=== PATIENT | male | born 1945 | race Caucasian/White ===

== ENCOUNTER 2016-09-20 13:20 | Outpatient (RCR) | payer MEDICARE ==
--- OUTSIDE RECORDS SUMMARY | 2016-09-03 15:03 | XMS REPORT | Continuity of Care Document ---
Author Author [facility] Organization [facility] Address Unknown Phone Unavailable Care Team Providers Care Asphalt Patcher Name Role Phone Self, Referral PCP Unavailable Source Comments Some departments are not documenting in the electronic medical record. If you do not see the information that you expected, contact Release of Information in the Health Information Management department at [phone] for further assistance in locating additional records.[facility] Active Allergies and Adverse Reactions Not on File Current Medications Not on file Active Problems Not on file Social History Tobacco Use Types Packs/Day Years Used Date Never Assessed Plan of Care Health Maintenance Due Date Last Done Comments Hepatitis C Screening 1945 Physical (Comprehensive) 1953 Exam Pertussis Vaccine 1957 Tetanus Vaccine 1963 Colorectal Cancer 1996 Screening Shingles Vaccine 2006 Prevnar/Pneumovax (#1) 2011 Influenza Vaccine 07/08/2016 Results from Last 3 Months Not on file
[~2016-09-20 13:20] MED LIST: ALPR0.5T7 PO; ALPR0.5T72 PO; AMIT50TA3 PO; ATOR10TA66 PO; BPR75T PO; CHOL100061 PO; CHOL400T43 GT; CYAN10007 PO; DILT120C PO; DILT90TA PO; DLT90CCR PO; FINA5TAB6 PO; GABA-488 PO; GBPN300C PO; GLIM4TAB PO; HCT25T PO; HYDR-2890 PO; HYDR-34 PO; HYDR-3720 PO; INSU100C7 SQ; INSU100I14 SQ; LEVO750T6 PO; LISI10TA2 PO; MAGN400T6 PO; OMEP20CA12 PO; OXYC-12 PO; SIMV40TA4 PO; SITA1TAB2 PO; VITA1CAP21 PO
[2016-09-20 14:36] LABS: BASOPHILS % (AUTO) 0 % (0-10); EOSINOPHILS # (AUTO) 0.3 10^3/uL (0.0-0.3); EOSINOPHILS % (AUTO) 3 % (0-10); LYMPHOCYTES # (AUTO) 2.4 X 10^3 (1.0-4.0); LYMPHOCYTES % (AUTO) 23 % (12-44); MEAN CORPUSCULAR HEMOGLOBIN 31 PG (25-34); MEAN CORPUSCULAR HGB CONC 34 G/DL (32-36); MEAN CORPUSCULAR VOLUME 92 FL (80-99); MEAN PLATELET VOLUME 10.4 FL (7.4-10.4); MONOCYTES % (AUTO) 9 % (0-12); NEUTROPHILS # (AUTO) 7.1 X 10^3 (1.8-7.8); NEUTROPHILS % (AUTO) 66 % (42-75); PLATELET COUNT 241 10^3/uL (130-400); RED BLOOD COUNT 4.03 10^6/uL (4.35-5.85); RED CELL DISTRIBUTION WIDTH 15.2 % (10.0-14.5); WHITE BLOOD COUNT 10.9 10^3/uL (4.3-11.0)
[2016-09-20 14:52] LABS: ALBUMIN 4.1 G/DL (3.2-4.5); BILIRUBIN,TOTAL 0.6 MG/DL (0.1-1.0); CREATININE SERUM 1.52 MG/DL (0.60-1.30); POTASSIUM 3.9 MMOL/L (3.6-5.0); TOTAL PROTEIN 6.2 G/DL (6.4-8.2)
== END 2016-12-02 | disposition home or self-care (01) ==
LOC: ONC 13:20
PROVIDERS: ATTEND Internal Medicine Hematology & Oncology
DX: C85.11 Unspecified B-cell lymphoma, lymph nodes of head, face, and neck (principal); D64.81 Anemia due to antineoplastic chemotherapy; D63.1 Anemia in chronic kidney disease; N18.9 Chronic kidney disease, unspecified; I12.9 Hypertensive chronic kidney disease with stage 1 through stage 4 chronic kidney disease, or unspecified chronic kidney disease; E11.22 Type 2 diabetes mellitus with diabetic chronic kidney disease; E78.5 Hyperlipidemia, unspecified; F41.9 Anxiety disorder, unspecified; G62.0 Drug-induced polyneuropathy; T45.1X5A Adverse effect of antineoplastic and immunosuppressive drugs, initial encounter; Z45.2 Encounter for adjustment and management of vascular access device
CPT/HCPCS: 36591; 80053; 83615; 85025; 96523; 99213

== ENCOUNTER 2017-01-18 13:11 | Outpatient (RCR) | payer MEDICARE ==
--- OUTSIDE RECORDS SUMMARY | 2016-12-06 14:17 | XMS REPORT | Continuity of Care Document ---
Author Author [facility] Organization [facility] Address Unknown Phone Unavailable Care Team Providers Care Light Cleaner Name Role Phone Self, Referral PCP Unavailable Source Comments Some departments are not documenting in the electronic medical record. If you do not see the information that you expected, contact Release of Information in the Health Information Management department at [phone] for further assistance in locating additional records.[facility] Active Allergies and Adverse Reactions Not [...]
[2016-12-06 14:36] LABS: BASOPHILS % (AUTO) 0 % (0-10); EOSINOPHILS # (AUTO) 0.2 10^3/uL (0.0-0.3); EOSINOPHILS % (AUTO) 2 % (0-10); LYMPHOCYTES % (AUTO) 20 % (12-44); MEAN CORPUSCULAR HEMOGLOBIN 31 PG (25-34); MEAN CORPUSCULAR HGB CONC 34 G/DL (32-36); MEAN CORPUSCULAR VOLUME 92 FL (80-99); MEAN PLATELET VOLUME 9.8 FL (7.4-10.4); MONOCYTES # (AUTO) 1.1 X 10^3 (0.0-1.0); MONOCYTES % (AUTO) 11 % (0-12); NEUTROPHILS # (AUTO) 6.8 X 10^3 (1.8-7.8); NEUTROPHILS % (AUTO) 67 % (42-75); PLATELET COUNT 268 10^3/uL (130-400); RED BLOOD COUNT 3.77 10^6/uL (4.35-5.85)
[2016-12-06 15:18] LABS: ALBUMIN 3.9 G/DL (3.2-4.5); BILIRUBIN,TOTAL 0.7 MG/DL (0.1-1.0); CALCIUM 8.5 MG/DL (8.5-10.1); CREATININE SERUM 1.52 MG/DL (0.60-1.30); POTASSIUM 3.8 MMOL/L (3.6-5.0)
== END 2017-03-06 | disposition home or self-care (01) ==
LOC: ONC 13:11
PROVIDERS: ATTEND Internal Medicine Hematology & Oncology
DX: C85.11 Unspecified B-cell lymphoma, lymph nodes of head, face, and neck (principal); D64.81 Anemia due to antineoplastic chemotherapy; D63.1 Anemia in chronic kidney disease; N18.9 Chronic kidney disease, unspecified; I12.9 Hypertensive chronic kidney disease with stage 1 through stage 4 chronic kidney disease, or unspecified chronic kidney disease; E11.22 Type 2 diabetes mellitus with diabetic chronic kidney disease; E78.5 Hyperlipidemia, unspecified; F41.9 Anxiety disorder, unspecified; G62.0 Drug-induced polyneuropathy; T45.1X5A Adverse effect of antineoplastic and immunosuppressive drugs, initial encounter; Z45.2 Encounter for adjustment and management of vascular access device
CPT/HCPCS: 36591; 80053; 85025; 96523; 99213

== ENCOUNTER → 2017-03-14 | Outpatient (CLI) | payer MEDICARE ==
--- NOTE | 2017-03-14 16:55 | Diagnostic Imaging Report ---
INDICATION: Lower respiratory infection. EXAM: PA and lateral chest. FINDINGS: Left subclavian central line tip projects over the SVC. Heart size and pulmonary vascularity are normal. The lungs are clear. There are no effusions or pneumothoraces. IMPRESSION: Negative chest. Dictated by: Dictated on workstation # [id number]
== END ==
LOC: RAD 16:03
PROVIDERS: ATTEND Internal Medicine
DX: J18.9 Pneumonia, unspecified organism (principal)
CPT/HCPCS: 71020

== ENCOUNTER 2017-05-19 14:24 | Outpatient (RCR) | payer MEDICARE ==
[2017-03-29 14:02] LABS: BASOPHILS % (AUTO) 1 % (0-10); EOSINOPHILS # (AUTO) 0.3 10^3/uL (0.0-0.3); EOSINOPHILS % (AUTO) 4 % (0-10); LYMPHOCYTES # (AUTO) 2.2 X 10^3 (1.0-4.0); LYMPHOCYTES % (AUTO) 25 % (12-44); MEAN CORPUSCULAR HEMOGLOBIN 31 PG (25-34); MEAN CORPUSCULAR HGB CONC 33 G/DL (32-36); MEAN CORPUSCULAR VOLUME 93 FL (80-99); MONOCYTES # (AUTO) 0.8 X 10^3 (0.0-1.0); MONOCYTES % (AUTO) 9 % (0-12); NEUTROPHILS # (AUTO) 5.4 X 10^3 (1.8-7.8); NEUTROPHILS % (AUTO) 61 % (42-75); PLATELET COUNT 230 10^3/uL (130-400); RED BLOOD COUNT 4.05 10^6/uL (4.35-5.85); RED CELL DISTRIBUTION WIDTH 15.9 % (10.0-14.5); WHITE BLOOD COUNT 8.9 10^3/uL (4.3-11.0)
[2017-03-29 15:14] LABS: ALBUMIN 3.8 G/DL (3.2-4.5); BILIRUBIN,TOTAL 0.8 MG/DL (0.1-1.0); CALCIUM 8.9 MG/DL (8.5-10.1); CREATININE SERUM 1.73 MG/DL (0.60-1.30); POTASSIUM 3.8 MMOL/L (3.6-5.0); TOTAL PROTEIN 6.2 G/DL (6.4-8.2)
== END 2017-06-27 | disposition home or self-care (01) ==
LOC: ONC 14:24
PROVIDERS: ATTEND Internal Medicine Hematology & Oncology
DX: C85.11 Unspecified B-cell lymphoma, lymph nodes of head, face, and neck (principal); D64.81 Anemia due to antineoplastic chemotherapy; D63.1 Anemia in chronic kidney disease; N18.9 Chronic kidney disease, unspecified; I12.9 Hypertensive chronic kidney disease with stage 1 through stage 4 chronic kidney disease, or unspecified chronic kidney disease; E11.22 Type 2 diabetes mellitus with diabetic chronic kidney disease; E78.5 Hyperlipidemia, unspecified; F41.9 Anxiety disorder, unspecified; G62.0 Drug-induced polyneuropathy; T45.1X5A Adverse effect of antineoplastic and immunosuppressive drugs, initial encounter
CPT/HCPCS: 36591; 80053; 85025; 96523; 99213

== ENCOUNTER 2017-06-29 13:58 | Outpatient (RCR) | payer MEDICARE ==
[2017-06-29 14:12] LABS: BASOPHILS % (AUTO) 1 % (0-10); EOSINOPHILS # (AUTO) 0.3 10^3/uL (0.0-0.3); EOSINOPHILS % (AUTO) 3 % (0-10); LYMPHOCYTES # (AUTO) 2.3 X 10^3 (1.0-4.0); LYMPHOCYTES % (AUTO) 27 % (12-44); MEAN CORPUSCULAR HEMOGLOBIN 33 PG (25-34); MEAN CORPUSCULAR HGB CONC 34 G/DL (32-36); MEAN CORPUSCULAR VOLUME 95 FL (80-99); MONOCYTES # (AUTO) 0.9 X 10^3 (0.0-1.0); MONOCYTES % (AUTO) 10 % (0-12); NEUTROPHILS % (AUTO) 59 % (42-75); PLATELET COUNT 267 10^3/uL (130-400); RED BLOOD COUNT 3.74 10^6/uL (4.35-5.85); RED CELL DISTRIBUTION WIDTH 14.8 % (10.0-14.5); WHITE BLOOD COUNT 8.5 10^3/uL (4.3-11.0)
[2017-06-29 14:42] LABS: ALBUMIN 3.9 GM/DL (3.2-4.5); BILIRUBIN,TOTAL 0.8 MG/DL (0.1-1.0); CALCIUM 8.6 MG/DL (8.5-10.1); CREATININE SERUM 1.77 MG/DL (0.60-1.30); POTASSIUM 3.9 MMOL/L (3.6-5.0); TOTAL PROTEIN 6.4 GM/DL (6.4-8.2)
== END 2017-08-06 | disposition home or self-care (01) ==
LOC: ONC 13:58
PROVIDERS: ATTEND Internal Medicine Hematology & Oncology
DX: C85.11 Unspecified B-cell lymphoma, lymph nodes of head, face, and neck (principal); D64.81 Anemia due to antineoplastic chemotherapy; D63.1 Anemia in chronic kidney disease; N18.9 Chronic kidney disease, unspecified; I12.9 Hypertensive chronic kidney disease with stage 1 through stage 4 chronic kidney disease, or unspecified chronic kidney disease; E11.22 Type 2 diabetes mellitus with diabetic chronic kidney disease; E78.5 Hyperlipidemia, unspecified; F41.9 Anxiety disorder, unspecified; G62.0 Drug-induced polyneuropathy; T45.1X5A Adverse effect of antineoplastic and immunosuppressive drugs, initial encounter
CPT/HCPCS: 36591; 80053; 83615; 85025

== ENCOUNTER 2017-10-24 09:13 | Outpatient (RCR) | payer MEDICARE ==
[2017-09-21 14:16] LABS: BASOPHILS % (AUTO) 0 % (0-10); EOSINOPHILS # (AUTO) 0.3 10^3/uL (0.0-0.3); EOSINOPHILS % (AUTO) 5 % (0-10); HEMATOCRIT 36 % (40-54); HEMOGLOBIN 12.6 G/DL (13.3-17.7); LYMPHOCYTES # (AUTO) 2.1 X 10^3 (1.0-4.0); LYMPHOCYTES % (AUTO) 28 % (12-44); MEAN CORPUSCULAR HEMOGLOBIN 33 PG (25-34); MEAN CORPUSCULAR HGB CONC 35 G/DL (32-36); MEAN CORPUSCULAR VOLUME 94 FL (80-99); MEAN PLATELET VOLUME 10.4 FL (7.4-10.4); MONOCYTES # (AUTO) 0.8 X 10^3 (0.0-1.0); MONOCYTES % (AUTO) 10 % (0-12); NEUTROPHILS # (AUTO) 4.3 X 10^3 (1.8-7.8); NEUTROPHILS % (AUTO) 57 % (42-75); PLATELET COUNT 217 10^3/uL (130-400); RED BLOOD COUNT 3.86 10^6/uL (4.35-5.85); WHITE BLOOD COUNT 7.5 10^3/uL (4.3-11.0)
[2017-09-21 14:38] LABS: ALBUMIN 3.9 GM/DL (3.2-4.5); BILIRUBIN,TOTAL 0.7 MG/DL (0.1-1.0); CALCIUM 8.7 MG/DL (8.5-10.1); CREATININE SERUM 1.64 MG/DL (0.60-1.30); POTASSIUM 3.5 MMOL/L (3.6-5.0); TOTAL PROTEIN 6.3 GM/DL (6.4-8.2)
[~2017-10-24 09:13] MED LIST changes: -CATHETER FLUSH 10 ML SYR IV PRN; +FLU TRIvalent (5 YOA+) 2017-18 (AFLURIA) 0.5 ML IM ONE; -REGADENOSON 0.4 MG/5 ML SYR (LEXISCAN) IV ONE
== END 2017-11-08 | disposition home or self-care (01) ==
LOC: ONC 09:13
PROVIDERS: ATTEND Internal Medicine Hematology & Oncology
DX: C85.11 Unspecified B-cell lymphoma, lymph nodes of head, face, and neck (principal); D64.81 Anemia due to antineoplastic chemotherapy; D63.1 Anemia in chronic kidney disease; N18.9 Chronic kidney disease, unspecified; I12.9 Hypertensive chronic kidney disease with stage 1 through stage 4 chronic kidney disease, or unspecified chronic kidney disease; E11.22 Type 2 diabetes mellitus with diabetic chronic kidney disease; E78.5 Hyperlipidemia, unspecified; F41.9 Anxiety disorder, unspecified; Z23 Encounter for immunization; G62.0 Drug-induced polyneuropathy; T45.1X5A Adverse effect of antineoplastic and immunosuppressive drugs, initial encounter; Z45.2 Encounter for adjustment and management of vascular access device
CPT/HCPCS: 36415; 36591; 80053; 83615; 85025; 90471; 96523

== ENCOUNTER → 2017-10-24 | Outpatient (CLI) | payer MEDICARE ==
[~2017-10-24] VITALS: Ht 182.9 cm; Wt 102.1 kg
[~2017-10-24] MED LIST changes: +CATHETER FLUSH 10 ML SYR IV PRN; +REGADENOSON 0.4 MG/5 ML SYR (LEXISCAN) IV ONE
[2017-10-24 07:56] VITALS: BP 188/113
[2017-10-24 08:11] VITALS: BP 189/113
[2017-10-24 08:13] VITALS: BP 190/116
--- NOTE | 2017-10-25 04:39 | STRESS TEST ---
DATE OF SERVICE: 10/24/2017 NUCLEAR MYOVIEW REPORT SUMMARY: The patient was injected with 10.63 mCi of technetium-99 Myoview and the resting images were obtained. Then, with peak stress level a 31.1 mCi of technetium-99 Myoview were injected. The resting and stress images were reviewed and compared in the short axis, horizontal long axis and vertical long axis views. Review of the images showed diaphragmatic attenuation with typical male pattern. No significant ischemia or infarction was noted. SSS is 2. SDS 0. TID value 1.06. On the gated images, the left ventricle appeared to be normal size with normal contractility. Calculated ejection fraction 54%. CONCLUSION: 1. Typical male pattern with diaphragmatic attenuation with no ischemia or infarction on SPECT images. 2. Normal left ventricular size with normal contractility. Calculated ejection fraction 54%. Job ID: [id number] DocumentID: [id number] Dictated Date: 10/24/2017 10:11:33 Senior Risk Analyst Date: 10/24/2017 15:07:35 Dictated By: MERLENE CHRISTIAN MD
== END ==
LOC: CARD 06:38
PROVIDERS: ATTEND Internal Medicine
DX: R53.83 Other fatigue (principal)
CPT/HCPCS: 78452; 93017

== ENCOUNTER → 2017-12-15 | Outpatient (CLI) | payer MEDICARE ==
[~2017-12-15] MED LIST changes: -FLU TRIvalent (5 YOA+) 2017-18 (AFLURIA) 0.5 ML IM ONE
--- NOTE | 2017-12-15 13:19 | Diagnostic Imaging Report ---
INDICATION: Chronic kidney disease. COMPARISON: None. FINDINGS: Right kidney measures 11.5 cm and the left 11 cm. Benign cysts are seen bilaterally. Largest on the right is 6.5 cm, the left 3 cm. There is no solid mass or hydronephrosis. IMPRESSION: Benign renal cysts. No hydronephrosis identified. Dictated by: Dictated on workstation # [id number]
== END ==
LOC: RAD 08:19
PROVIDERS: ATTEND Internal Medicine
DX: N18.3 Chronic kidney disease, stage 3 (moderate) (principal); N28.1 Cyst of kidney, acquired
CPT/HCPCS: 76770

== ENCOUNTER 2017-12-16 08:30 | Outpatient (RCR) | payer MEDICARE ==
[2017-12-17 14:27] LABS: BODY SURFACE AREA 2.25
[2017-12-17 14:28] LABS: CREATININE CRCL 1.78 MG/DL (0.60-1.30)
[2017-12-26] MEDS ORDERED: AMOX-358 PO (12:56)
== END 2018-03-15 | disposition home or self-care (01) ==
LOC: LAB 08:30
PROVIDERS: ATTEND Internal Medicine
DX: N18.3 Chronic kidney disease, stage 3 (moderate) (principal)
CPT/HCPCS: 36415; 82575; 84156

== ENCOUNTER 2017-12-26 10:55 | Emergency (ER) | payer MEDICARE ==
[~2017-12-26] VITALS: Ht 180.3 cm; Wt 101.6 kg
--- OUTSIDE RECORDS SUMMARY | 2017-12-26 11:01 | XMS REPORT | Clinical Summary ---
Author Author [facility] Organization [facility] Address Unknown Phone Unavailable Care Team Providers Care Pad Machine Offbearer Name Role Phone Self, Referral PCP Unavailable Source Comments Some departments are not documenting in the electronic medical record. If you do not see the information that you expected, contact Release of Information in the Health Information Management department at [phone] for further assistance in locating additional records.[facility] Allergies Not on File Current Medications Not on file Active Problems Not on file Social History Tobacco Use Types Packs/Day Years Used Date Never Assessed Sex Assigned at Date Recorded Not on file Last Filed Vital Signs Not on file Plan of Treatment Health Maintenance Due Date Last Done Comments HEPATITIS C SCREENING 1945 PHYSICAL (COMPREHENSIVE) 1952 EXAM PERTUSSIS VACCINE 1957 TETANUS VACCINE 1963 COLORECTAL CANCER 1996 SCREENING SHINGLES VACCINE 2006 PREVNAR/PNEUMOVAX (#1) 2011 INFLUENZA VACCINE 06/07/2017 Results Not on filefrom Last 3 Months
--- OUTSIDE RECORDS SUMMARY | 2017-12-26 11:01 | XMS REPORT | Continuity of Care Document ---
Author Author [employer] Organization [facility] Address Unknown Phone Unavailable Care Team Providers Care Supervisor Fertilizer Processing Name Role Phone [employer] Unavailable Unavailable Problems Medications Allergies, Adverse Reactions, Alerts Immunizations Results Vital Signs Encounters Location Location Details Encounter Type Encounter Number Reason For Visit Attending Provider ADM [place] [id number] AN[place] THAPA 07/20/2007 07/20/2007 Active [facility] Procedures Plan of Care Social History Assessment and Plan Family History Advance Directives Functional Status
--- OUTSIDE RECORDS SUMMARY | 2017-12-26 11:02 | XMS REPORT ---
Author Author ASYA BIRD Organization [employer] Address Unknown Phone Unavailable Care Team Providers Care Records Management Engineer Name Role Phone ASYA BIRD CP Unavailable Allergies No Known Allergies Problems Problem Type Condition ICD-9 Code Onset Dates Condition Status Assessment Dental examination V72.2 Active Medications No Known Medications Procedures Procedure Coding System Code Date INTRAORL-PERIAPICAL 1 FILM [id number] CPT-4 D0220 Jun 26, 2015 INTRAORL-PERIAPICAL EA ADD FILM CPT-4 D0230 Jun 26, 2015 LTD ORAL EVALUATION - PROBLEM FOCUS CPT-4 D0140 Jun 26, 2015 Results No Known Results Summary Purpose [employer] Submission
--- OUTSIDE RECORDS SUMMARY | 2017-12-26 11:02 | XMS REPORT ---
Author Author ASYA BIRD Organization [employer] Address Unknown Phone Unavailable Care Team Providers Care Bounty Trapper Name Role Phone ASYA BIRD CP Unavailable Allergies No Known Allergies Problems Problem Type Condition ICD-9 Code Onset Dates Condition Status Assessment Dental examination V72.2 Active Medications No Known Medications Procedures Procedure Coding System Code Date EXTRAC ERUPTED TOOTH/EXPOSED ROOT CPT-4 D7140 Jul 03, 2015 Results No Known Results Summary Purpose [employer] Submission
--- OUTSIDE RECORDS SUMMARY | 2017-12-26 11:05 | XMS REPORT | Continuity of Care Document ---
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 DIABETIC BUTCHER ALL ROUND 07/23/2016 SUZI LOMAS MD, Ot E78.5 HYPERLIPIDEMIA, UNSPECIFIED 07/23/2016 SUZI LOMAS MD, Ot F41.9 ANXIETY DISORDER, UNSPECIFIED 07/23/2016 SUZI LOMAS MD, Ot G62.0 DRUG-INDUCED POLYNEUROPATHY 07/23/2016 SUZI LOMAS MD, Ot I12.9 HYPERTENSIVE CHRONIC KIDNEY DISEASE W ST 07/23/2016 SUZI LOMAS MD, Ot N18.9 CHRONIC KIDNEY DISEASE, UNSPECIFIED 07/23/2016 SUZI LOMAS MD, Ot T45.1X5A ADVERSE EFFECT OF ANTINEOPLASTIC AND IMM 07/27/2016 SUZI LOMAS MD, Ot 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, LYMPH NODES OF A 07/27/2016 SUZI LOMAS MD, Ot D63.1 ANEMIA IN CHRONIC KIDNEY DISEASE 07/27/2016 SUZI LOMAS MD Ot D64.81 ANEMIA DUE TO ANTINEOPLASTIC CHEMOTHERAP 07/27/2016 SUZI LOMAS MD Ot E11.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 DIABETIC BUTCHER ALL ROUND 07/27/2016 SUZI LOMAS MD Ot E78.5 HYPERLIPIDEMIA, UNSPECIFIED 07/27/2016 SUZI LOMAS MD, Ot F41.9 ANXIETY DISORDER, UNSPECIFIED 07/27/2016 SUZI LOMAS MD Ot G62.0 DRUG-INDUCED POLYNEUROPATHY 07/27/2016 SUZI LOMAS MD Ot I12.9 HYPERTENSIVE CHRONIC KIDNEY DISEASE W ST 07/27/2016 SUZI LOMAS MD, Ot N18.9 CHRONIC KIDNEY DISEASE, UNSPECIFIED 07/27/2016 SUZI LOMAS MD, Ot T45.1X5A ADVERSE EFFECT OF ANTINEOPLASTIC AND IMM 07/29/2016 SUZI LOMAS MD, Ot C82.90 FOLLICULAR LYMPHOMA, UNSPECIFIED, UNSPEC 08/16/2016 SUZI LOMAS MD, Ot 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, LYMPH NODES OF A 08/16/2016 SUZI LOMAS MD, Ot D63.1 ANEMIA IN CHRONIC KIDNEY DISEASE 08/16/2016 SUZI LOMAS MD, Ot D64.81 ANEMIA DUE TO ANTINEOPLASTIC CHEMOTHERAP 08/16/2016 SUZI LOMAS MD Ot E11.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 DIABETIC BUTCHER ALL ROUND 08/16/2016 SUZI LOMAS MD, Ot E78.5 HYPERLIPIDEMIA, UNSPECIFIED 08/16/2016 SUZI LOMAS MD, Ot F41.9 ANXIETY DISORDER, UNSPECIFIED 08/16/2016 SUZI LOMAS MD, Ot G62.0 DRUG-INDUCED POLYNEUROPATHY 08/16/2016 SUZI LOMAS MD, Ot I12.9 HYPERTENSIVE CHRONIC KIDNEY DISEASE W ST 08/16/2016 SUZI LOMAS MD, Ot N18.9 CHRONIC KIDNEY DISEASE, UNSPECIFIED 08/16/2016 SUZI LOMAS MD, Ot T45.1X5A ADVERSE EFFECT OF ANTINEOPLASTIC AND IMM 09/06/2016 SUZI LOMAS MD, Ot 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, LYMPH NODES OF [facility] 09/06/2016 SUZI LOMAS MD, Ot D63.1 ANEMIA IN CHRONIC KIDNEY DISEASE 09/06/2016 SUZI LOMAS MD Ot D64.81 ANEMIA DUE TO ANTINEOPLASTIC CHEMOTHERAP 09/06/2016 SUZI LOMAS MD Ot E11.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 DIABETIC BUTCHER ALL ROUND 09/06/2016 SUZI LOMAS MD Ot E78.5 HYPERLIPIDEMIA, UNSPECIFIED 09/06/2016 SUZI LOMAS MD, Ot F41.9 ANXIETY DISORDER, UNSPECIFIED 09/06/2016 SUZI LOMAS MD Ot G62.0 DRUG-INDUCED POLYNEUROPATHY 09/06/2016 SUZI LOMAS MD, Ot I12.9 HYPERTENSIVE CHRONIC KIDNEY DISEASE W ST 09/06/2016 SUZI LOMAS MD, Ot N18.9 CHRONIC KIDNEY DISEASE, UNSPECIFIED 09/06/2016 SUZI LOMAS MD, Ot T45.1X5A ADVERSE EFFECT OF ANTINEOPLASTIC AND IMM 09/28/2016 SUZI LOMAS MD, Ot 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, LYMPH NODES OF [facility] 09/28/2016 SUZI LOMAS MD, Ot D63.1 ANEMIA IN CHRONIC KIDNEY DISEASE 09/28/2016 SUZI LOMAS MD, Ot D64.81 ANEMIA DUE TO ANTINEOPLASTIC CHEMOTHERAP 09/28/2016 SUIZ LOMAS MD, Ot E11.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 DIABETIC BUTCHER ALL ROUND 09/28/2016 SUZI LOMAS MD, Ot E78.5 HYPERLIPIDEMIA, UNSPECIFIED 09/28/2016 SUZI LOMAS MD, Ot F41.9 ANXIETY DISORDER, UNSPECIFIED 09/28/2016 SUZI LOMAS MD, Ot G62.0 DRUG-INDUCED POLYNEUROPATHY 09/28/2016 SUZI LOMAS MD, Ot I12.9 HYPERTENSIVE CHRONIC KIDNEY DISEASE W ST 09/28/2016 SUZI LOMAS MD, Ot N18.9 CHRONIC KIDNEY DISEASE, UNSPECIFIED 09/28/2016 SUZI LOMAS MD, Ot T45.1X5A ADVERSE EFFECT OF ANTINEOPLASTIC AND IMM 09/28/2016 SUZI LOMAS MD, Ot Z45.2 ENCOUNTER FOR ADJUSTMENT AND MANAGEMENT 11/15/2016 SUZI LOMAS MD, Ot 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, LYMPH NODES OF [facility] 11/15/2016 SUZI LOMAS MD, Ot D63.1 ANEMIA IN CHRONIC KIDNEY DISEASE 11/15/2016 SUZI LOMAS MD, Ot D64.81 ANEMIA DUE TO ANTINEOPLASTIC CHEMOTHERAP 11/15/2016 SUZI LOMAS MD, Ot E11.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 DIABETIC BUTCHER ALL ROUND 11/15/2016 SUZI LOMAS MD, Ot E78.5 HYPERLIPIDEMIA, UNSPECIFIED 11/15/2016 SUZI LOMAS MD, Ot F41.9 ANXIETY DISORDER, UNSPECIFIED 11/15/2016 SUZI LOMAS MD, Ot G62.0 DRUG-INDUCED POLYNEUROPATHY 11/15/2016 SUZI LOMAS MD, Ot I12.9 HYPERTENSIVE CHRONIC KIDNEY DISEASE W ST 11/15/2016 SUZI LOMAS MD, Ot N18.9 CHRONIC KIDNEY DISEASE, UNSPECIFIED 11/15/2016 SUZI LOMAS MD, Ot T45.1X5A ADVERSE EFFECT OF ANTINEOPLASTIC AND IMM 11/15/2016 SUZI LOMAS MD, Ot Z45.2 ENCOUNTER FOR ADJUSTMENT AND MANAGEMENT 2016 SUZI LOMAS MD, Ot 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, LYMPH NODES OF [facility] 2016 SUZI LOMAS MD, Ot D63.1 ANEMIA IN CHRONIC KIDNEY DISEASE 2016 SUZI LOMAS MD, Ot D64.81 ANEMIA DUE TO ANTINEOPLASTIC CHEMOTHERAP 2016 SUZI LOMAS MD, Ot E11.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 DIABETIC BUTCHER ALL ROUND 2016 SUZI LOMAS MD, Ot E78.5 HYPERLIPIDEMIA, UNSPECIFIED 2016 SUZI LOMAS MD, Ot F41.9 ANXIETY DISORDER, UNSPECIFIED 2016 SUZI LOMAS MD, Ot G62.0 DRUG-INDUCED POLYNEUROPATHY 2016 SUZI LOMAS MD, Ot I12.9 HYPERTENSIVE CHRONIC KIDNEY DISEASE W ST 2016 SUZI LOMAS MD, Ot N18.9 CHRONIC KIDNEY DISEASE, UNSPECIFIED 2016 SUZI LOMAS MD, Ot T45.1X5A ADVERSE EFFECT OF ANTINEOPLASTIC AND IMM 2016 SUZI LOMAS MD, Ot Z45.2 ENCOUNTER FOR ADJUSTMENT AND MANAGEMENT 12/03/2016 SUZI LOMAS MD, Ot 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, LYMPH NODES OF HEA 12/03/2016 SUZI LOMAS MD, Ot D63.1 ANEMIA IN CHRONIC KIDNEY DISEASE 12/03/2016 SUZI LOMAS MD, Ot D64.81 ANEMIA DUE TO ANTINEOPLASTIC CHEMOTHERAP 12/03/2016 SUZI LOMAS MD, Ot E11.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 DIABETIC BUTCHER ALL ROUND 12/03/2016 SUZI LOMAS MD, Ot E78.5 HYPERLIPIDEMIA, UNSPECIFIED 12/03/2016 SUZI LOMAS MD, Ot F41.9 ANXIETY DISORDER, UNSPECIFIED 12/03/2016 SUZI LOMAS MD, Ot G62.0 DRUG-INDUCED POLYNEUROPATHY 12/03/2016 SUZI LOMAS MD, Ot I12.9 HYPERTENSIVE CHRONIC KIDNEY DISEASE W ST 12/03/2016 SUZI LOMAS MD, Ot N18.9 CHRONIC KIDNEY DISEASE, UNSPECIFIED 12/03/2016 SUZI LOMAS MD, Ot T45.1X5A ADVERSE EFFECT OF ANTINEOPLASTIC AND IMM 12/03/2016 SUZI LOMAS MD, Ot Z45.2 ENCOUNTER FOR ADJUSTMENT AND MANAGEMENT 12/03/2016 SUZI LOMAS MD, Ot 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, LYMPH NODES OF HEA 12/03/2016 SUZI LOMAS MD, Ot D63.1 ANEMIA IN CHRONIC KIDNEY DISEASE 12/03/2016 SUZI LOMAS MD, Ot D64.81 ANEMIA DUE TO ANTINEOPLASTIC CHEMOTHERAP 12/03/2016 SUZI LOMAS MD, Ot E11.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 DIABETIC BUTCHER ALL ROUND 12/03/2016 SUZI LOMAS MD, Ot E78.5 HYPERLIPIDEMIA, UNSPECIFIED 12/03/2016 SUZI LOMAS MD, Ot F41.9 ANXIETY DISORDER, UNSPECIFIED 12/03/2016 SUZI LOMAS MD, Ot G62.0 DRUG-INDUCED POLYNEUROPATHY 12/03/2016 SUZI LOMAS MD, Ot I12.9 HYPERTENSIVE CHRONIC KIDNEY DISEASE W ST 12/03/2016 SUZI LOMAS MD, Ot N18.9 CHRONIC KIDNEY DISEASE, UNSPECIFIED 12/03/2016 SUZI LOMAS MD, Ot T45.1X5A ADVERSE EFFECT OF ANTINEOPLASTIC AND IMM 12/03/2016 SUZI LOMAS MD, Ot Z45.2 ENCOUNTER FOR ADJUSTMENT AND MANAGEMENT 12/07/2016 SUZI LOMAS MD, Ot 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, LYMPH NODES OF HEA 12/07/2016 SUZI LOMAS MD, Ot D63.1 ANEMIA IN CHRONIC KIDNEY DISEASE 12/07/2016 SUZI LOMAS MD, Ot D64.81 ANEMIA DUE TO ANTINEOPLASTIC CHEMOTHERAP 12/07/2016 SUZI LOMAS MD, Ot E11.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 DIABETIC BUTCHER ALL ROUND 12/07/2016 SUZI LOMAS MD, Ot E78.5 HYPERLIPIDEMIA, UNSPECIFIED 12/07/2016 SUZI LOMAS MD, Ot F41.9 ANXIETY DISORDER, UNSPECIFIED 12/07/2016 SUZI LOMAS MD, Ot G62.0 DRUG-INDUCED POLYNEUROPATHY 12/07/2016 SUZI LOMAS MD, Ot I12.9 HYPERTENSIVE CHRONIC KIDNEY DISEASE W ST 12/07/2016 SUZI LOMAS MD, Ot N18.9 CHRONIC KIDNEY DISEASE, UNSPECIFIED 12/07/2016 SUZI LOMAS MD, Ot T45.1X5A ADVERSE EFFECT OF ANTINEOPLASTIC AND IMM 12/07/2016 SUZI LOMAS MD, Ot Z45.2 ENCOUNTER FOR ADJUSTMENT AND MANAGEMENT 01/03/2017 SUZI LOMAS MD, Ot 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, LYMPH NODES OF [facility] 01/03/2017 SUZI LOMAS MD, Ot D63.1 ANEMIA IN CHRONIC KIDNEY DISEASE 01/03/2017 SUZI LOMAS MD, Ot D64.81 ANEMIA DUE TO ANTINEOPLASTIC CHEMOTHERAP 01/03/2017 SUZI LOMAS MD, Ot E11.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 DIABETIC BUTCHER ALL ROUND 01/03/2017 SUZI LOMAS MD, Ot E78.5 HYPERLIPIDEMIA, UNSPECIFIED 01/03/2017 SUZI LOMAS MD, Ot F41.9 ANXIETY DISORDER, UNSPECIFIED 01/03/2017 SUZI LOMAS MD, Ot G62.0 DRUG-INDUCED POLYNEUROPATHY 01/03/2017 SUZI LOMAS MD, Ot I12.9 HYPERTENSIVE CHRONIC KIDNEY DISEASE W ST 01/03/2017 SUZI LOMAS MD, Ot N18.9 CHRONIC KIDNEY DISEASE, UNSPECIFIED 01/03/2017 SUZI LOMAS MD, Ot T45.1X5A ADVERSE EFFECT OF ANTINEOPLASTIC AND IMM 01/24/2017 SUZI LOMAS MD, Ot 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, LYMPH NODES OF A 01/24/2017 SUZI LMOAS MD, Ot D63.1 ANEMIA IN CHRONIC KIDNEY DISEASE 01/24/2017 SUZI LOMAS MD, Ot D64.81 ANEMIA DUE TO ANTINEOPLASTIC CHEMOTHERAP 01/24/2017 SUZI LOMAS MD Ot E11.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 DIABETIC BUTCHER ALL ROUND 01/24/2017 SUZI LOMAS MD, Ot E78.5 HYPERLIPIDEMIA, UNSPECIFIED 01/24/2017 XUN MD, ARREGUIN-JOY Ot F41.9 ANXIETY DISORDER, UNSPECIFIED 01/24/2017 SUZI LOMAS MD, Ot G62.0 DRUG-INDUCED POLYNEUROPATHY 01/24/2017 SUZI LOMAS MD, Ot I12.9 HYPERTENSIVE CHRONIC KIDNEY DISEASE W ST 01/24/2017 SUZI LOMAS MD, Ot N18.9 CHRONIC KIDNEY DISEASE, UNSPECIFIED 01/24/2017 SUZI LOMAS MD, Ot T45.1X5A ADVERSE EFFECT OF ANTINEOPLASTIC AND IMM 03/06/2017 SZUI LOMAS MD, Ot 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, LYMPH NODES OF A 03/06/2017 SUZI LOMAS MD, Ot D63.1 ANEMIA IN CHRONIC KIDNEY DISEASE 03/06/2017 SUZI LOMAS MD, Ot D64.81 ANEMIA DUE TO ANTINEOPLASTIC CHEMOTHERAP 03/06/2017 SUZI LOMAS MD, Ot E11.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 DIABETIC BUTCHER ALL ROUND 03/06/2017 SUZI LOMAS MD, Ot E78.5 HYPERLIPIDEMIA, UNSPECIFIED 03/06/2017 SUZI LOMAS MD, Ot F41.9 ANXIETY DISORDER, UNSPECIFIED 03/06/2017 SUZI LOMAS MD, Ot G62.0 DRUG-INDUCED POLYNEUROPATHY 03/06/2017 SUZI LOMAS MD, Ot I12.9 HYPERTENSIVE CHRONIC KIDNEY DISEASE W ST 03/06/2017 SUZI LOMAS MD, Ot N18.9 CHRONIC KIDNEY DISEASE, UNSPECIFIED 03/06/2017 SUZI LOMAS MD, Ot T45.1X5A ADVERSE EFFECT OF ANTINEOPLASTIC AND IMM 03/06/2017 SUZI LOMAS MD, Ot Z45.2 ENCOUNTER FOR ADJUSTMENT AND MANAGEMENT 03/07/2017 SUZI LOMAS MD, Ot 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, LYMPH NODES OF A 03/07/2017 SUZI LOMAS MD, Ot D63.1 ANEMIA IN CHRONIC KIDNEY DISEASE 03/07/2017 SUZI LOMAS MD, Ot D64.81 ANEMIA DUE TO ANTINEOPLASTIC CHEMOTHERAP 03/07/2017 SUZI LOMAS MD, Ot E11.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 DIABETIC BUTCHER ALL ROUND 03/07/2017 SUZI LOMAS MD, Ot E78.5 HYPERLIPIDEMIA, UNSPECIFIED 03/07/2017 SUZI LOMAS MD, Ot F41.9 ANXIETY DISORDER, UNSPECIFIED 03/07/2017 SUZI LOMAS MD Ot G62.0 DRUG-INDUCED POLYNEUROPATHY 03/07/2017 SUZI LOMAS MD Ot I12.9 HYPERTENSIVE CHRONIC KIDNEY DISEASE W ST 03/07/2017 SUZI LOMAS MD Ot N18.9 CHRONIC KIDNEY DISEASE, UNSPECIFIED 03/07/2017 SUZI LOMAS MD Ot T45.1X5A ADVERSE EFFECT OF ANTINEOPLASTIC AND IMM 03/07/2017 SUZI LOMAS MD Ot Z45.2 ENCOUNTER FOR ADJUSTMENT AND MANAGEMENT 03/10/2017 Ot 202.80 OTH LYMPHOMAS EXTRANODAL SOLID ORGAN U 03/10/2017 Ot V58.81 FIT/ADJ VASCULAR CATHETER 03/11/2017 Ot 202.80 OTH LYMPHOMAS EXTRANODAL SOLID ORGAN U 03/11/2017 Ot 787.20 DYSPHAGIA, UNSPECIFIED 03/11/2017 Ot 791.0 PROTEINURIA 03/11/2017 OCTAVIA LIMON FACC, ALI FACP CCDS Ot 250.00 DIAB JIGNESH WO COMPL, TYPE II OR UNSPEC TY 03/11/2017 OCTAVIA LIMON FACC, ALI FACP CCDS Ot 272.4 HYPERLIPIDEMIA NEC/NOS 03/11/2017 OCTAVIA LIMON FACC, ALI FACP CCDS Ot 401.9 HYPERTENSION NOS 03/11/2017 OCTAVIA LIMON FACC, ALI FACP CCDS Ot 586 RENAL FAILURE NOS 03/11/2017 OCTAVIA LIMON FACC, ALI FACP CCDS Ot 780.4 DIZZINESS AND GIDDINESS 03/11/2017 OCTAVIA LIMON FACC, ALI FACP CCDS Ot 781.3 LACK OF COORDINATION 03/11/2017 OCTAVIA LIMON FACC, ALI FACP CCDS Ot 786.09 RESPIRATORY ABNORM NEC 03/11/2017 OCTAVIA LIMON FACC, ALI FACP CCDS Ot 272.4 HYPERLIPIDEMIA NEC/NOS 03/11/2017 OCTAVIA LIMON FACC, ALI FACP CCDS Ot 401.9 HYPERTENSION NOS 03/11/2017 OCTAVIA LIMON FACC, ALI FACP CCDS Ot 780.4 DIZZINESS AND GIDDINESS 03/11/2017 OCTAVIA LIMON FACC, ALI FACP CCDS Ot 786.09 RESPIRATORY ABNORM NEC 03/11/2017 OSKAR HANSEN DO Ot 574.20 CHOLELITHIASIS NOS 03/11/2017 OSKAR HANSEN DO Ot 585.4 CHRONIC KIDNEY DISEASE, STAGE IV (SEVERE 03/11/2017 OSKAR HANSEN DO Ot 593.2 CYST OF KIDNEY, ACQUIRED 03/11/2017 Ot 593.9 RENAL URETERAL DIS NOS 03/11/2017 ALFREDO MCLEAN MD Ot 202.80 OTH LYMPHOMAS EXTRANODAL SOLID ORGAN U 03/11/2017 ALFREDO MCLEAN MD Ot V58.69 OTH MED,LT,CURRENT USE 03/11/2017 ALFREDO MCLEAN MD Ot 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 03/11/2017 ALFREDO MCLEAN MD Ot 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 03/11/2017 ALFREDO MCLEAN MD Ot 496 CHR AIRWAY OBSTRUCT NEC 03/11/2017 ALFREDO MCLEAN MD Ot 530.81 ESOPHAGEAL REFLUX 03/11/2017 ALFREDO MCLEAN MD Ot 562.10 DIVERTICULOSIS COLON (W/O MENT OF HEMORR 03/11/2017 ALFREDO MCLEAN MD Ot 574.20 CHOLELITHIASIS NOS 03/11/2017 ALFREDO MCLEAN MD Ot V58.69 OTH MED,LT,CURRENT USE 03/11/2017 ALFREDO MCLEAN MD Ot V58.83 ENCOUNTER FOR THERAPEUTIC DRUG MONITORIN 03/11/2017 EDVIN LIMON, MAGY Ot V72.84 EXAM PRE-OPERATIVE NOS 03/11/2017 ABUNDIO BORJAS Ot 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 03/11/2017 ABUNDIO BORJAS [employer]PERVIS[employer] Ot 250.60 DIAB W NEURO MANIFEST, TYPE II OR UNSPEC 03/11/2017 ABUNDIO BORJAS [employer] Ot 272.4 HYPERLIPIDEMIA NEC/NOS 03/11/2017 ABUNDIO BORJAS [employer] Ot 357.2 NEUROPATHY IN DIABETES 03/11/2017 ABUNDIO BORJAS [employer]PER[employer] Ot 401.9 HYPERTENSION NOS 03/11/2017 ABUNDIO BORJAS Ot V58.69 OTH MED,LT,CURRENT USE 03/11/2017 ABUNDIO BORJAS [employer] Ot V87.41 PERSONAL HISTORY OF ANTINEOPLASTIC CHEMO 03/11/2017 ABEBE LIMON, SUZI Ot 202.80 OTH LYMPHOMAS EXTRANODAL SOLID ORGAN U 03/11/2017 OSKAR HANSEN DO Ot E11.9 TYPE 2 DIABETES MELLITUS WITHOUT COMPLIC 03/11/2017 OSKAR HANSEN DO Ot E11.9 TYPE 2 DIABETES MELLITUS WITHOUT COMPLIC 03/11/2017 OSKAR HANSEN DO, Ot Z00.00 ENCNTR FOR GENERAL ADULT MEDICAL EXAM W/ 03/11/2017 Ot 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 03/11/2017 Ot 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 OR AB 03/11/2017 Ot K80.20 CALCULUS OF GALLBLADDER W/O CHOLECYSTITI 03/11/2017 SUZI LOMAS MD Ot R05 COUGH 03/11/2017 SUZI LOMAS MD, Ot R06.09 OTHER FORMS OF DYSPNEA 03/11/2017 OSKAR HANSEN DO, Ot E86.0 DEHYDRATION 03/11/2017 OSKAR HANSEN DO Ot I95.9 HYPOTENSION, UNSPECIFIED 03/11/2017 SUZI LOMAS MD, Ot C82.90 FOLLICULAR LYMPHOMA, UNSPECIFIED, UNSPEC 03/11/2017 SUZI LOMAS MD, Ot 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, LYMPH NODES OF [facility] 03/11/2017 SUZI LOMAS MD, Ot D63.1 ANEMIA IN CHRONIC KIDNEY DISEASE 03/11/2017 SUZI LOMAS MD, Ot D64.81 ANEMIA DUE TO ANTINEOPLASTIC CHEMOTHERAP 03/11/2017 SUZI LOMAS MD, Ot E11.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 DIABETIC BUTCHER ALL ROUND 03/11/2017 SUZI LOMAS MD, Ot E78.5 HYPERLIPIDEMIA, UNSPECIFIED 03/11/2017 SUZI LOMAS MD, Ot F41.9 ANXIETY DISORDER, UNSPECIFIED 03/11/2017 SUZI LOMAS MD, Ot G62.0 DRUG-INDUCED POLYNEUROPATHY 03/11/2017 SUZI LOMAS MD, Ot I12.9 HYPERTENSIVE CHRONIC KIDNEY DISEASE W ST 03/11/2017 SUZI LOMAS MD, Ot N18.9 CHRONIC KIDNEY DISEASE, UNSPECIFIED 03/11/2017 SUZI LOMAS MD, Ot T45.1X5A ADVERSE EFFECT OF ANTINEOPLASTIC AND IMM 03/12/2017 SUZI LOMAS MD, Ot 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, LYMPH NODES OF [facility] 03/12/2017 SUZI LOMAS MD, Ot D63.1 ANEMIA IN CHRONIC KIDNEY DISEASE 03/12/2017 SUZI LOMAS MD, Ot D64.81 ANEMIA DUE TO ANTINEOPLASTIC CHEMOTHERAP 03/12/2017 SUZI LOMAS MD Ot E11.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 DIABETIC BUTCHER ALL ROUND 03/12/2017 SUZI LOMAS MD Ot E78.5 HYPERLIPIDEMIA, UNSPECIFIED 03/12/2017 SUZI LOMAS MD, Ot F41.9 ANXIETY DISORDER, UNSPECIFIED 03/12/2017 SUZI LOMAS MD Ot G62.0 DRUG-INDUCED POLYNEUROPATHY 03/12/2017 SUZI LOMAS MD, Ot I12.9 HYPERTENSIVE CHRONIC KIDNEY DISEASE W ST 03/12/2017 SUZI LOMAS MD, Ot N18.9 CHRONIC KIDNEY DISEASE, UNSPECIFIED 03/12/2017 SUZI LOMAS MD, Ot T45.1X5A ADVERSE EFFECT OF ANTINEOPLASTIC AND IMM 03/12/2017 SUZI LOMAS MD Ot Z45.2 ENCOUNTER FOR ADJUSTMENT AND MANAGEMENT 03/14/2017 Ot 202.80 OTH LYMPHOMAS EXTRANODAL SOLID ORGAN U 03/14/2017 Ot 787.20 DYSPHAGIA, UNSPECIFIED 03/14/2017 Ot 791.0 PROTEINURIA 03/14/2017 OCTAVIA LIMON FACC, JAMAAL FACP CCDS Ot 250.00 DIAB JIGNESH WO COMPL, TYPE II OR UNSPEC TY 03/14/2017 OCTAVIA LIMON FACC, ALI FACP CCDS Ot 272.4 HYPERLIPIDEMIA NEC/NOS 03/14/2017 OCTAVIA LIMON FACC, ALI FACP CCDS Ot 401.9 HYPERTENSION NOS 03/14/2017 OCTAVIA LIMON FACC, ALI FACP CCDS Ot 586 RENAL FAILURE NOS 03/14/2017 OCTAVIA LIMON FACC, ALI FACP CCDS Ot 780.4 DIZZINESS AND GIDDINESS 03/14/2017 OCTAVIA LIMON FACC, ALI FACP CCDS Ot 781.3 LACK OF COORDINATION 03/14/2017 OCTAVIA LIMON FACC, ALI FACP CCDS Ot 786.09 RESPIRATORY ABNORM NEC 03/14/2017 OCTAVIA LIMNO FACC, ALI FACP CCDS Ot 272.4 HYPERLIPIDEMIA NEC/NOS 03/14/2017 OCTAVIA LIMON FACC, ALI FACP CCDS Ot 401.9 HYPERTENSION NOS 03/14/2017 OCTAVIA LIMON FACC, ALI FACP CCDS Ot 780.4 DIZZINESS AND GIDDINESS 03/14/2017 OCTAVIA LIMON FACC, ALI FACP CCDS Ot 786.09 RESPIRATORY ABNORM NEC 03/14/2017 OSKAR HANSEN DO Ot 574.20 CHOLELITHIASIS NOS 03/14/2017 OSKAR HANSEN DO Ot 585.4 CHRONIC KIDNEY DISEASE, STAGE IV (SEVERE 03/14/2017 OSKAR HANSEN DO Ot 593.2 CYST OF KIDNEY, ACQUIRED 03/14/2017 Ot 593.9 RENAL URETERAL DIS NOS 03/14/2017 VINYA LIMON, ALFREDO Holliday Ot 202.80 OTH LYMPHOMAS EXTRANODAL SOLID ORGAN U 03/14/2017 ALFREDO MCLEAN MD Ot V58.69 OTH MED,LT,CURRENT USE 03/14/2017 ALFREDO MCLEAN MD Ot 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 03/14/2017 ALFREDO MCLEAN MD Ot 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 03/14/2017 ALFREDO MCLEAN MD Ot 496 CHR AIRWAY OBSTRUCT NEC 03/14/2017 ALFREDO MCLEAN MD Ot 530.81 ESOPHAGEAL REFLUX 03/14/2017 ALFREDO MCLEAN MD Ot 562.10 DIVERTICULOSIS COLON (W/O MENT OF HEMORR 03/14/2017 ALFREDO MCLEAN MD Ot 574.20 CHOLELITHIASIS NOS 03/14/2017 ALFREDO MCLEAN MD Ot V58.69 OTH MED,LT,CURRENT USE 03/14/2017 ALFREDO CMLEAN MD Ot V58.83 ENCOUNTER FOR THERAPEUTIC DRUG MONITORIN 03/14/2017 EDVIN LIMON, MAGY Ot V72.84 EXAM PRE-OPERATIVE NOS 03/14/2017 ABUNDIO BORJAS Ot 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 03/14/2017 ABUNDIO BORJAS [employer] Ot 250.60 DIAB W NEURO MANIFEST, TYPE II OR UNSPEC 03/14/2017 ABUNDIO BORJAS [employer] Ot 272.4 HYPERLIPIDEMIA NEC/NOS 03/14/2017 ABUNDIO BORJAS [employer] Ot 357.2 NEUROPATHY IN DIABETES 03/14/2017 ABUNDIO BORJAS [employer] Ot 401.9 HYPERTENSION NOS 03/14/2017 ABUNDIO BORJAS Ot V58.69 OTH MED,LT,CURRENT USE 03/14/2017 ABUNDIO BORJAS [employer] Ot V87.41 PERSONAL HISTORY OF ANTINEOPLASTIC CHEMO 03/14/2017 SUZI LOMAS MD, Ot 202.80 OTH LYMPHOMAS EXTRANODAL SOLID ORGAN U 03/14/2017 OSKAR HANSEN DO, Ot E11.9 TYPE 2 DIABETES MELLITUS WITHOUT COMPLIC 03/14/2017 OSKAR HANSEN DO, Ot E11.9 TYPE 2 DIABETES MELLITUS WITHOUT COMPLIC 03/14/2017 OSKAR HANSEN DO, Ot Z00.00 ENCNTR FOR GENERAL ADULT MEDICAL EXAM W/ 03/14/2017 Ot 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 03/14/2017 Ot 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 OR AB 03/14/2017 Ot K80.20 CALCULUS OF GALLBLADDER W/O CHOLECYSTITI 03/14/2017 SUZI LOMAS MD, Ot R05 COUGH 03/14/2017 SUZI LOMAS MD, Ot R06.09 OTHER FORMS OF DYSPNEA 03/14/2017 OSKAR HANSEN DO Ot E86.0 DEHYDRATION 03/14/2017 OSKAR HANSEN DO Ot I95.9 HYPOTENSION, UNSPECIFIED 03/14/2017 SUZI LOMAS MD, Ot C82.90 FOLLICULAR LYMPHOMA, UNSPECIFIED, UNSPEC 03/14/2017 SUZI LOMAS MD, Ot 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, LYMPH NODES OF HEA 03/14/2017 SUZI LOMAS MD, Ot D63.1 ANEMIA IN CHRONIC KIDNEY DISEASE 03/14/2017 SUZI LOMAS MD, Ot D64.81 ANEMIA DUE TO ANTINEOPLASTIC CHEMOTHERAP 03/14/2017 SUZI LOMAS MD, Ot E11.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 DIABETIC BUTCHER ALL ROUND 03/14/2017 SUZI LOMAS MD, Ot E78.5 HYPERLIPIDEMIA, UNSPECIFIED 03/14/2017 SUZI LOMAS MD, Ot F41.9 ANXIETY DISORDER, UNSPECIFIED 03/14/2017 SUZI LOMAS MD, Ot G62.0 DRUG-INDUCED POLYNEUROPATHY 03/14/2017 SUZI LOMAS MD, Ot I12.9 HYPERTENSIVE CHRONIC KIDNEY DISEASE W ST 03/14/2017 SUZI LOMAS MD, Ot N18.9 CHRONIC KIDNEY DISEASE, UNSPECIFIED 03/14/2017 SUZI LOMAS MD, Ot T45.1X5A ADVERSE EFFECT OF ANTINEOPLASTIC AND IMM 03/30/2017 XUN MD, ARREGUIN-JOY Ot 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, LYMPH NODES OF [facility] 03/30/2017 SUZI LOMAS MD, Ot D63.1 ANEMIA IN CHRONIC KIDNEY DISEASE 03/30/2017 SUZI LOMAS MD, Ot D64.81 ANEMIA DUE TO ANTINEOPLASTIC CHEMOTHERAP 03/30/2017 SUZI LOMAS MD Ot E11.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 DIABETIC BUTCHER ALL ROUND 03/30/2017 SUZI LOMAS MD, Ot E78.5 HYPERLIPIDEMIA, UNSPECIFIED 03/30/2017 SUZI LOMAS MD, Ot F41.9 ANXIETY DISORDER, UNSPECIFIED 03/30/2017 SUZI LOMAS MD, Ot G62.0 DRUG-INDUCED POLYNEUROPATHY 03/30/2017 SUZI LOMAS MD, Ot I12.9 HYPERTENSIVE CHRONIC KIDNEY DISEASE W ST 03/30/2017 SUZI LOMAS MD, Ot N18.9 CHRONIC KIDNEY DISEASE, UNSPECIFIED 03/30/2017 SUZI LOMAS MD, Ot T45.1X5A ADVERSE EFFECT OF ANTINEOPLASTIC AND IMM 03/31/2017 SUZI LOMAS MD, Ot 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, LYMPH NODES OF [facility] 03/31/2017 SUZI LOMAS MD Ot D63.1 ANEMIA IN CHRONIC KIDNEY DISEASE 03/31/2017 SUZI LOMAS MD, Ot D64.81 ANEMIA DUE TO ANTINEOPLASTIC CHEMOTHERAP 03/31/2017 SUZI LOMAS MD, Ot E11.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 DIABETIC BUTCHER ALL ROUND 03/31/2017 SUZI LOMAS MD, Ot E78.5 HYPERLIPIDEMIA, UNSPECIFIED 03/31/2017 SUZI LOMAS MD, Ot F41.9 ANXIETY DISORDER, UNSPECIFIED 03/31/2017 SUZI LOMAS MD, Ot G62.0 DRUG-INDUCED POLYNEUROPATHY 03/31/2017 USZI LOMAS MD, Ot I12.9 HYPERTENSIVE CHRONIC KIDNEY DISEASE W ST 03/31/2017 SUZI LOMAS MD, Ot N18.9 CHRONIC KIDNEY DISEASE, UNSPECIFIED 03/31/2017 SUZI LOMAS MD, Ot T45.1X5A ADVERSE EFFECT OF ANTINEOPLASTIC AND IMM 04/18/2017 OSKAR HANSEN DO Ot J18.9 PNEUMONIA, UNSPECIFIED ORGANISM 04/22/2017 OSKAR HANSEN DO Ot J18.9 PNEUMONIA, UNSPECIFIED ORGANISM 04/28/2017 SUZI LOMAS MD, Ot 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, LYMPH NODES OF [facility] 04/28/2017 SUZI LOMAS MD, Ot D63.1 ANEMIA IN CHRONIC KIDNEY DISEASE 04/28/2017 SUZI LOMAS MD, Ot D64.81 ANEMIA DUE TO ANTINEOPLASTIC CHEMOTHERAP 04/28/2017 SUZI LOMAS MD Ot E11.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 DIABETIC BUTCHER ALL ROUND 04/28/2017 SUZI LOMAS MD, Ot E78.5 HYPERLIPIDEMIA, UNSPECIFIED 04/28/2017 SUZI LOMAS MD, Ot F41.9 ANXIETY DISORDER, UNSPECIFIED 04/28/2017 SUZI LOMAS MD, Ot G62.0 DRUG-INDUCED POLYNEUROPATHY 04/28/2017 SUZI LOMAS MD, Ot I12.9 HYPERTENSIVE CHRONIC KIDNEY DISEASE W ST 04/28/2017 SUZI LOMAS MD, Ot N18.9 CHRONIC KIDNEY DISEASE, UNSPECIFIED 04/28/2017 SUZI LOMAS MD, Ot T45.1X5A ADVERSE EFFECT OF ANTINEOPLASTIC AND IMM 05/23/2017 SUZI LOMAS MD, Ot 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, LYMPH NODES OF [facility] 05/23/2017 SUZI LOMAS MD, Ot D63.1 ANEMIA IN CHRONIC KIDNEY DISEASE 05/23/2017 SUZI LOMAS MD, Ot D64.81 ANEMIA DUE TO ANTINEOPLASTIC CHEMOTHERAP 05/23/2017 SUZI LOMAS MD, Ot E11.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 DIABETIC BUTCHER ALL ROUND 05/23/2017 SUZI LOMAS MD, Ot E78.5 HYPERLIPIDEMIA, UNSPECIFIED 05/23/2017 SUZI LOMAS MD, Ot F41.9 ANXIETY DISORDER, UNSPECIFIED 05/23/2017 SUZI LOMAS MD, Ot G62.0 DRUG-INDUCED POLYNEUROPATHY 05/23/2017 SUZI LOMAS MD, Ot I12.9 HYPERTENSIVE CHRONIC KIDNEY DISEASE W ST 05/23/2017 SUZI LOMAS MD, Ot N18.9 CHRONIC KIDNEY DISEASE, UNSPECIFIED 05/23/2017 SUZI LOMAS MD, Ot T45.1X5A ADVERSE EFFECT OF ANTINEOPLASTIC AND IMM 06/27/2017 SUZI LOMAS MD, Ot 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, LYMPH NODES OF A 06/27/2017 SUZI LOMAS MD Ot D63.1 ANEMIA IN CHRONIC KIDNEY DISEASE 06/27/2017 SUZI LOMAS MD Ot D64.81 ANEMIA DUE TO ANTINEOPLASTIC CHEMOTHERAP 06/27/2017 SUZI LOMAS MD Ot E11.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 DIABETIC BUTCHER ALL ROUND 06/27/2017 SUZI LOMAS MD Ot E78.5 HYPERLIPIDEMIA, UNSPECIFIED 06/27/2017 SUZI LOMAS MD Ot F41.9 ANXIETY DISORDER, UNSPECIFIED 06/27/2017 SUZI LOMAS MD Ot G62.0 DRUG-INDUCED POLYNEUROPATHY 06/27/2017 SUZI LOMAS MD Ot I12.9 HYPERTENSIVE CHRONIC KIDNEY DISEASE W ST 06/27/2017 SUZI LOMAS MD, Ot N18.9 CHRONIC KIDNEY DISEASE, UNSPECIFIED 06/27/2017 SUZI LOMAS MD, Ot T45.1X5A ADVERSE EFFECT OF ANTINEOPLASTIC AND IMM 06/30/2017 SUZI LOMAS MD, Ot 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, LYMPH [facility]ES OF [facility] 06/30/2017 SUZI LOMAS MD Ot D63.1 ANEMIA IN CHRONIC KIDNEY DISEASE 06/30/2017 SUZI LOMAS MD Ot D64.81 ANEMIA DUE TO ANTINEOPLASTIC CHEMOTHERAP 06/30/2017 SUZI LOMAS MD Ot E11.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 DIABETIC BUTCHER ALL ROUND 06/30/2017 SUZI LOMAS MD Ot E78.5 HYPERLIPIDEMIA, UNSPECIFIED 06/30/2017 SUZI LOMAS MD, Ot F41.9 ANXIETY DISORDER, UNSPECIFIED 06/30/2017 SUZI LOMAS MD Ot G62.0 DRUG-INDUCED POLYNEUROPATHY 06/30/2017 SUZI LOMAS MD Ot I12.9 HYPERTENSIVE CHRONIC KIDNEY DISEASE W ST 06/30/2017 SUZI LOMAS MD, Ot N18.9 CHRONIC KIDNEY DISEASE, UNSPECIFIED 06/30/2017 SUZI LOMAS MD, Ot T45.1X5A ADVERSE EFFECT OF ANTINEOPLASTIC AND IMM 07/29/2017 SUZI LOMAS MD Ot 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, LYMPH [facility] 07/29/2017 SUZI LOMAS MD Ot D63.1 ANEMIA IN CHRONIC KIDNEY DISEASE 07/29/2017 SUZI LOMAS MD Ot D64.81 ANEMIA DUE TO ANTINEOPLASTIC CHEMOTHERAP 07/29/2017 SUZI LOMAS MD Ot E11.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 DIABETIC BUTCHER ALL ROUND 07/29/2017 SUZI LOMAS MD Ot E78.5 HYPERLIPIDEMIA, UNSPECIFIED 07/29/2017 SUZI LOMAS MD, Ot F41.9 ANXIETY DISORDER, UNSPECIFIED 07/29/2017 SUZI LOMAS MD Ot G62.0 DRUG-INDUCED POLYNEUROPATHY 07/29/2017 SUZI LOMAS MD, Ot I12.9 HYPERTENSIVE CHRONIC KIDNEY DISEASE W ST 07/29/2017 SUZI LOMAS MD, Ot N18.9 CHRONIC KIDNEY DISEASE, UNSPECIFIED 07/29/2017 SUZI LOMAS MD, Ot T45.1X5A ADVERSE EFFECT OF ANTINEOPLASTIC AND IMM 08/06/2017 SUZI LOMAS MD, Ot 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, LYMPH [facility] 08/06/2017 SUZI LOMAS MD, Ot D63.1 ANEMIA IN CHRONIC KIDNEY DISEASE 08/06/2017 SUZI LOMAS MD, Ot D64.81 ANEMIA DUE TO ANTINEOPLASTIC CHEMOTHERAP 08/06/2017 SUZI LOMAS MD, Ot E11.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 DIABETIC BUTCHER ALL ROUND 08/06/2017 SUZI LOMAS MD, Ot E78.5 HYPERLIPIDEMIA, UNSPECIFIED 08/06/2017 SUZI LOMAS MD, Ot F41.9 ANXIETY DISORDER, UNSPECIFIED 08/06/2017 SUZI LOMAS MD, Ot G62.0 DRUG-INDUCED POLYNEUROPATHY 08/06/2017 SUZI LOMAS MD, Ot I12.9 HYPERTENSIVE CHRONIC KIDNEY DISEASE W ST 08/06/2017 SUZI LOMAS MD, Ot N18.9 CHRONIC KIDNEY DISEASE, UNSPECIFIED 08/06/2017 SUZI LOMAS MD, Ot T45.1X5A ADVERSE EFFECT OF ANTINEOPLASTIC AND IMM 08/11/2017 SUZI LOMAS MD, Ot 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, LYMPH [facility] 08/11/2017 SUZI LOMAS MD Ot D63.1 ANEMIA IN CHRONIC KIDNEY DISEASE 08/11/2017 SUZI LOMAS MD, Ot D64.81 ANEMIA DUE TO ANTINEOPLASTIC CHEMOTHERAP 08/11/2017 SUZI LOMAS MD Ot E11.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 DIABETIC BUTCHER ALL ROUND 08/11/2017 SUZI LOMAS MD Ot E78.5 HYPERLIPIDEMIA, UNSPECIFIED 08/11/2017 SUZI LOMAS MD, Ot F41.9 ANXIETY DISORDER, UNSPECIFIED 08/11/2017 SUZI LOMAS MD Ot G62.0 DRUG-INDUCED POLYNEUROPATHY 08/11/2017 SUZI LOMAS MD, Ot I12.9 HYPERTENSIVE CHRONIC KIDNEY DISEASE W ST 08/11/2017 SUZI LOMAS MD, Ot N18.9 CHRONIC KIDNEY DISEASE, UNSPECIFIED 08/11/2017 SUZI LOMAS MD, Ot T45.1X5A ADVERSE EFFECT OF ANTINEOPLASTIC AND IMM 08/12/2017 SUZI LOMAS MD Ot 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, LYMPH NODES OF [facility] 08/12/2017 SUZI LOMAS MD Ot D63.1 ANEMIA IN CHRONIC KIDNEY DISEASE 08/12/2017 SUZI LOMAS MD, Ot D64.81 ANEMIA DUE TO ANTINEOPLASTIC CHEMOTHERAP 08/12/2017 SUZI LOMAS MD Ot E11.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 DIABETIC BUTCHER ALL ROUND 08/12/2017 SUZI LOMAS MD Ot E78.5 HYPERLIPIDEMIA, UNSPECIFIED 08/12/2017 SUZI LOMAS MD, Ot F41.9 ANXIETY DISORDER, UNSPECIFIED 08/12/2017 SUZI LOMAS MD, Ot G62.0 DRUG-INDUCED POLYNEUROPATHY 08/12/2017 SUZI LOMAS MD, Ot I12.9 HYPERTENSIVE CHRONIC KIDNEY DISEASE W ST 08/12/2017 SUZI LOMAS MD, Ot N18.9 CHRONIC KIDNEY DISEASE, UNSPECIFIED 08/12/2017 SUZI LOMAS MD, Ot T45.1X5A ADVERSE EFFECT OF ANTINEOPLASTIC AND IMM 10/24/2017 Ot 202.80 OTH LYMPHOMAS EXTRANODAL SOLID ORGAN U 10/24/2017 Ot 787.20 DYSPHAGIA, UNSPECIFIED 10/24/2017 Ot 791.0 PROTEINURIA 10/24/2017 OCTAVIA LIMON FACC, JAMAAL FACP CCDS Ot 250.00 DIAB JIGNESH WO COMPL, TYPE II OR UNSPEC TY 10/24/2017 OCTAVIA LIMON FACC, JAMAAL FACP CCDS Ot 272.4 HYPERLIPIDEMIA NEC/NOS 10/24/2017 OCTAVIA SUTHERLAND, ALI FACP CCDS Ot 401.9 HYPERTENSION NOS 10/24/2017 OCTAVIA SUTHERLAND, ALI FACP CCDS Ot 586 RENAL FAILURE NOS 10/24/2017 OCTAVIA LIMON FACC, ALI FACP CCDS Ot 780.4 DIZZINESS AND GIDDINESS 10/24/2017 OCTAVIA LIMON FACC, ALI FACP CCDS Ot 781.3 LACK OF COORDINATION 10/24/2017 OCTAVIA LIMON FACC, ALI FACP CCDS Ot 786.09 RESPIRATORY ABNORM NEC 10/24/2017 OCTAVIA LIMON FACC, ALI FACP CCDS Ot 272.4 HYPERLIPIDEMIA NEC/NOS 10/24/2017 OCTAVIA LIMON FACC, ALI FACP CCDS Ot 401.9 HYPERTENSION NOS 10/24/2017 OCTAVIA LIMON FACC, ALI FACP CCDS Ot 780.4 DIZZINESS AND GIDDINESS 10/24/2017 OCTAVIA LIMON FACC, ALI FACP CCDS Ot 786.09 RESPIRATORY ABNORM NEC 10/24/2017 OSKAR HANSEN DO Ot 574.20 CHOLELITHIASIS NOS 10/24/2017 OSKAR HANSEN DO Ot 585.4 CHRONIC KIDNEY DISEASE, STAGE IV (SEVERE 10/24/2017 OSKAR HANSEN DO Ot 593.2 CYST OF KIDNEY, ACQUIRED 10/24/2017 Ot 593.9 RENAL URETERAL DIS NOS 10/24/2017 ALFREDO MCLEAN MD Ot 202.80 OTH LYMPHOMAS EXTRANODAL SOLID ORGAN U 10/24/2017 ALFREDO MCLEAN MD Ot V58.69 OTH MED,LT,CURRENT USE 10/24/2017 ALFREDO MCLEAN MD Ot 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 10/24/2017 ALFREDO MCLEAN MD Ot 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 10/24/2017 ALFREDO MCLEAN MD Ot 496 CHR AIRWAY OBSTRUCT NEC 10/24/2017 ALFREDO MCLEAN MD Ot 530.81 ESOPHAGEAL REFLUX 10/24/2017 ALFREDO MCLEAN MD Ot 562.10 DIVERTICULOSIS COLON (W/O MENT OF HEMORR 10/24/2017 ALFREDO MCLEAN MD Ot 574.20 CHOLELITHIASIS NOS 10/24/2017 ALFREDO MCLEAN MD Ot V58.69 OTH MED,LT,CURRENT USE 10/24/2017 VINAY MD, ALFREDO K Ot V58.83 ENCOUNTER FOR THERAPEUTIC DRUG MONITORIN 10/24/2017 EDVIN LIMON, JOSEJOSE ALEJANDRO Ot V72.84 EXAM PRE-OPERATIVE NOS 10/24/2017 ABUNDIO BORJAS [employer] Ot 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 10/24/2017 ABUNDIO BORJAS [employer] Ot 250.60 DIAB W NEURO MANIFEST, TYPE II OR UNSPEC 10/24/2017 ABUNDIO BORJAS [employer] Ot 272.4 HYPERLIPIDEMIA NEC/NOS 10/24/2017 AUBNDIO BORJAS [employer] Ot 357.2 NEUROPATHY IN DIABETES 10/24/2017 ABUNDIO BORJAS [employer] Ot 401.9 HYPERTENSION NOS 10/24/2017 ABUNDIO BORJASP Ot V58.69 OTH MED,LT,CURRENT USE 10/24/2017 ABUNDIO BORJASP Ot V87.41 PERSONAL HISTORY OF ANTINEOPLASTIC CHEMO 10/24/2017 SUZI LOMAS MD Ot 202.80 OTH LYMPHOMAS EXTRANODAL SOLID ORGAN U 10/24/2017 OSKAR HANSEN DO Ot E11.9 TYPE 2 DIABETES MELLITUS WITHOUT COMPLIC 10/24/2017 OSKAR HANSEN DO Ot E11.9 TYPE 2 DIABETES MELLITUS WITHOUT COMPLIC 10/24/2017 OSKAR HANSEN DO Ot Z00.00 ENCNTR FOR GENERAL ADULT MEDICAL EXAM W/ 10/24/2017 Ot 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 10/24/2017 Ot 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 OR AB 10/24/2017 Ot K80.20 CALCULUS OF GALLBLADDER W/O CHOLECYSTITI 10/24/2017 SUZI LOMAS MD Ot R05 COUGH 10/24/2017 SUZI LOMAS MD Ot R06.09 OTHER FORMS OF DYSPNEA 10/24/2017 OSKAR HANSEN DO Ot E86.0 DEHYDRATION 10/24/2017 OSKAR HANSEN DO Ot I95.9 HYPOTENSION, UNSPECIFIED 10/24/2017 SUZI LOMAS MD Ot C82.90 FOLLICULAR LYMPHOMA, UNSPECIFIED, UNSPEC 10/24/2017 OSKAR HANSEN DO Ot J18.9 PNEUMONIA, UNSPECIFIED ORGANISM 10/24/2017 SUZI LOMAS MD Ot 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, LYMPH NODES OF HEA 10/24/2017 SUZI LOMAS MD Ot D63.1 ANEMIA IN CHRONIC KIDNEY DISEASE 10/24/2017 SUZI LOMAS MD, Ot D64.81 ANEMIA DUE TO ANTINEOPLASTIC CHEMOTHERAP 10/24/2017 SUZI LOMAS MD Ot E11.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 DIABETIC BUTCHER ALL ROUND 10/24/2017 SUZI LOMAS MD, Ot E78.5 HYPERLIPIDEMIA, UNSPECIFIED 10/24/2017 SUZI LOMAS MD, Ot F41.9 ANXIETY DISORDER, UNSPECIFIED 10/24/2017 SUZI LOMAS MD, Ot G62.0 DRUG-INDUCED POLYNEUROPATHY 10/24/2017 SUZI LOMAS MD, Ot I12.9 HYPERTENSIVE CHRONIC KIDNEY DISEASE W ST 10/24/2017 SUZI LOMAS MD, Ot N18.9 CHRONIC KIDNEY DISEASE, UNSPECIFIED 10/24/2017 SUZI LOMAS MD, Ot T45.1X5A ADVERSE EFFECT OF ANTINEOPLASTIC AND IMM 10/24/2017 SUZI LOMAS MD, Ot Z23 ENCOUNTER FOR IMMUNIZATION 11/01/2017 SUZI LOMAS MD, Ot 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, LYMPH [facility] 11/01/2017 SUZI LOMAS MD, Ot D63.1 ANEMIA IN CHRONIC KIDNEY DISEASE 11/01/2017 SUZI LOMAS MD, Ot D64.81 ANEMIA DUE TO ANTINEOPLASTIC CHEMOTHERAP 11/01/2017 SUZI LOMAS MD, Ot E11.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 DIABETIC BUTCHER ALL ROUND 11/01/2017 SUZI LOMAS MD, Ot E78.5 HYPERLIPIDEMIA, UNSPECIFIED 11/01/2017 SUZI LOMAS MD, Ot F41.9 ANXIETY DISORDER, UNSPECIFIED 11/01/2017 SUZI LOMAS MD, Ot G62.0 DRUG-INDUCED POLYNEUROPATHY 11/01/2017 SUZI LOMAS MD, Ot I12.9 HYPERTENSIVE CHRONIC KIDNEY DISEASE W ST 11/01/2017 SUZI LOMAS MD, Ot N18.9 CHRONIC KIDNEY DISEASE, UNSPECIFIED 11/01/2017 SUZI LOMAS MD, Ot T45.1X5A ADVERSE EFFECT OF ANTINEOPLASTIC AND IMM 11/01/2017 SUZI LOMAS MD, Ot Z23 ENCOUNTER FOR IMMUNIZATION 11/08/2017 SUZI LOMAS MD, Ot 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, LYMPH [facility] 11/08/2017 SUZI LOMAS MD Ot D63.1 ANEMIA IN CHRONIC KIDNEY DISEASE 11/08/2017 SUZI LOMAS MD, Ot D64.81 ANEMIA DUE TO ANTINEOPLASTIC CHEMOTHERAP 11/08/2017 SUZI LOMAS MD Ot E11.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 DIABETIC BUTCHER ALL ROUND 11/08/2017 SUZI LOMAS MD Ot E78.5 HYPERLIPIDEMIA, UNSPECIFIED 11/08/2017 SUZI LOMAS MD, Ot F41.9 ANXIETY DISORDER, UNSPECIFIED 11/08/2017 SUZI LOMAS MD, Ot G62.0 DRUG-INDUCED POLYNEUROPATHY 11/08/2017 SUZI LOMAS MD, Ot I12.9 HYPERTENSIVE CHRONIC KIDNEY DISEASE W ST 11/08/2017 SUZI LOMAS MD, Ot N18.9 CHRONIC KIDNEY DISEASE, UNSPECIFIED 11/08/2017 SUZI LOMAS MD, Ot T45.1X5A ADVERSE EFFECT OF ANTINEOPLASTIC AND IMM 11/08/2017 SUZI LOMAS MD, Ot Z23 ENCOUNTER FOR IMMUNIZATION 11/08/2017 SUZI LOMAS MD, Ot Z45.2 ENCOUNTER FOR ADJUSTMENT AND MANAGEMENT 11/16/2017 OSKAR HANSEN DO Ot R53.83 OTHER FATIGUE 11/18/2017 SUZI LOMAS MD, Ot 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, LYMPH [facility] 11/18/2017 SUZI LOMAS MD, Ot D63.1 ANEMIA IN CHRONIC KIDNEY DISEASE 11/18/2017 SUZI LOMAS MD, Ot D64.81 ANEMIA DUE TO ANTINEOPLASTIC CHEMOTHERAP 11/18/2017 SUZI LOMAS MD, Ot E11.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 DIABETIC BUTCHER ALL ROUND 11/18/2017 SUZI LOMAS MD, Ot E78.5 HYPERLIPIDEMIA, UNSPECIFIED 11/18/2017 SUZI LOMAS MD, Ot F41.9 ANXIETY DISORDER, UNSPECIFIED 11/18/2017 SUZI LOMAS MD, Ot G62.0 DRUG-INDUCED POLYNEUROPATHY 11/18/2017 SUZI LOMAS MD, Ot I12.9 HYPERTENSIVE CHRONIC KIDNEY DISEASE W ST 11/18/2017 SUZI LOMAS MD, Ot N18.9 CHRONIC KIDNEY DISEASE, UNSPECIFIED 11/18/2017 SUZI LOMAS MD, Ot T45.1X5A ADVERSE EFFECT OF ANTINEOPLASTIC AND IMM 11/18/2017 SUZI LOMAS MD Ot Z23 ENCOUNTER FOR IMMUNIZATION 11/18/2017 SUZI LOMAS MD, Ot Z45.2 ENCOUNTER FOR ADJUSTMENT AND MANAGEMENT 12/05/2017 OSKAR HANSEN DO Ot R53.83 OTHER FATIGUE Procedures There is no data. Results Test Result Range 24 hour urine protein measurement (mass/volume) - 12/15/17 08:30 Urine protein measurement (mass/volume) 43 mg/dL 6-12 24 hour urine specimen volume measurement 2260 mL NRG 24 hour urine protein measurement (mass/time) 971 mg 0- 149 Urine collection time duration - 12/15/17 08:30 Urine collection time duration 12 h NRG [id number] - 12/15/17 08:30 [id number] [in_us] NRG Measure weight - 12/15/17 08:30 Measure weight 226 [lb_ap] NRG Determination of body surface area - 12/15/17 08:30 Determination of body surface area 2.25 NRG Urine creatinine measurement (mass/volume) - 12/15/17 08:30 Urine creatinine measurement (mass/volume) 57 mg/dL 30- 125 Serum or plasma creatinine measurement (mass/volume) - 12/15/17 08:30 Serum or plasma creatinine measurement (mass/volume) 1.78 mg/dL 0.60-1.30 24 hour urine creatinine measurement (mass/time) - 12/15/17 08:30 24 hour urine creatinine measurement (mass/time) 1288 mg 0888-4330 Renal creatinine clearance measurement - 12/15/17 08:30 Renal creatinine clearance measurement 77 mL 80-110 Serum or plasma creatinine measurement (mass/volume) - 12/15/17 08:39 Serum or plasma creatinine measurement (mass/volume) 1.78 mg/dL 0.60-1.30 Encounters ACCT No. Visit Date/Time Discharge Status Pt. Type Provider Facility Loc./Unit Complaint [id number] 12/15/2017 08:21:00 12/15/2017 23:59:59 CLS Outpatient OSKAR HANSEN DO Via [facility] LAB N18.3 [id number] 12/15/2017 08:19:00 12/15/2017 23:59:59 CLS Outpatient OSKAR HANSEN DO [facility] RAD N18.3 [id number] 12/14/2017 13:48:00 12/14/2017 23:59:59 CLS Outpatient SUZI LOMAS MD [facility] ONC PORT FLUSH [id number] 10/24/2017 09:13:00 11/08/2017 00:01:00 DIS Outpatient SUZI LOMAS MD [facility] ONC [place] [id number] 10/24/2017 06:38:00 10/24/2017 23:59:59 CLS Outpatient OSKAR HANSEN DO [facility] CARD R53.83 [id number] 06/29/2017 13:58:00 08/06/2017 00:01:00 DIS Outpatient SUZI LOMAS MD [facility] ONC [place] [id number] 05/19/2017 14:24:00 06/27/2017 00:01:00 DIS Outpatient SUZI LOMAS MD [facility] ONC [place] [id number] 03/14/2017 16:03:00 03/14/2017 23:59:59 CLS Outpatient OSKAR HANSEN DO [facility] RAD J18.9 [id number] 01/18/2017 13:11:00 03/06/2017 00:01:00 DIS Outpatient SUZI LOMAS MD [facility] ONC [place] [id number] 09/20/2016 13:20:00 2016 00:01:00 DIS Outpatient SUZI LOMAS MD [facility] ONC [place] [id number] 07/26/2016 12:45:00 08/16/2016 14:00:00 DIS Outpatient SUZI LOMAS MD [facility] ONC [place] [id number] 06/24/2016 12:45:00 07/19/2016 00:01:00 DIS Outpatient SUZI LOMAS MD [facility] ONC [place] [id number] 06/24/2016 14:16:00 06/24/2016 23:59:59 CLS Outpatient SUZI LOMAS MD [facility] RAD FOLLICULAR LYMPHOMA [id number] 05/06/2016 12:58:00 05/06/2016 23:59:59 [facility] [id number] 04/27/2016 09:37:00 04/27/2016 23:59:59 CLS Outpatient SUZI LOMAS MD [facility] RAD [id number] 03/02/2016 08:31:00 03/15/2016 00:01:00 DIS Outpatient SUZI LOMAS MD [facility] ONC [place] [id number] 03/02/2016 08:36:00 03/02/2016 23:59:59 CLS Outpatient OSKAR HANSEN DO [facility] LAB [id number] 11/11/2015 08:44:00 11/17/2015 00:01:00 DIS Outpatient SUZI LOMAS MD [facility] ONC [place] [id number] 09/09/2015 08:38:00 09/09/2015 23:59:59 CLS Outpatient OSKAR HANSEN DO [facility] LAB [id number] 07/15/2015 08:19:00 08/06/2015 00:01:00 DIS Outpatient SUZI LOMAS MD [facility] ONC [place] [id number] 05/20/2015 07:53:00 05/26/2015 00:01:00 DIS Outpatient SUZI LOMAS MD [facility] ONC [place] [id number] 04/21/2015 14:36:00 04/22/2015 12:15:00 DIS Inpatient OSKAR HANSEN DO [facility] 4TH RU PNEUMONIA ORTHOSTATIC HYPOTENSION SCALP LAC [id number] 03/04/2015 08:21:00 03/04/2015 23:59:59 CLS Outpatient SUZI LOMAS MD [facility] RAD LYMPHOMA [id number] 02/18/2015 16:20:00 02/24/2015 00:01:00 DIS Outpatient SUZI LOMAS MD [facility] ONC PORT FLUSH [id number] 11/20/2014 15:51:00 11/25/2014 00:01:00 DIS Outpatient SUZI LOMAS MD [facility] ONC [place] [id number] 11/19/2014 09:34:00 11/19/2014 23:59:59 CLS Outpatient RICKY BORJASSYLWIA Audie LEVY [facility] ONC [id number] 10/07/2014 10:55:00 10/07/2014 16:35:00 DIS Outpatient MAGY PARDO MD [facility] SDC LEFT GROIN MASS [id number] 10/04/2014 08:53:00 10/04/2014 23:59:59 CLS Outpatient MAGY PARDO MD [facility] PREOP LEFT GROIN MASS [id number] 09/24/2014 08:02:00 09/24/2014 23:59:59 CLS Outpatient ALFREDO MCLEAN MD [facility] RAD RESTAGING OF LYMPHOMA [id number] 09/19/2014 08:42:00 09/19/2014 23:59:59 CLS Outpatient ALFREDO MCLEAN MD [facility] RAD RESTAGING OF LYMPHOMA [id number] 09/16/2014 14:41:00 09/16/2014 23:59:59 CLS Outpatient ALFREDO MCLEAN MD [facility] ONC [id number] 07/30/2014 14:54:00 08/08/2014 15:33:00 DIS Outpatient SUZI LOMAS MD [facility] ONC PORT FLUSH [id number] 05/20/2014 15:37:00 06/23/2014 00:01:00 DIS Outpatient SUZI LOMAS MD [facility] ONC PORT FLUSH [id number] 02/12/2014 13:29:00 02/19/2014 00:01:00 DIS Outpatient SUZI LOMAS MD [facility] ONC PORT FLUSH [id number] 10/17/2013 13:27:00 11/12/2013 00:01:00 DIS Outpatient SUZI LOMAS MD [facility] ONC PORT FLUSH [id number] 05/07/2013 09:26:00 07/31/2013 00:01:00 DIS Outpatient OSKAR HANSEN DO [facility] LAB [id number] 06/15/2013 13:38:00 07/17/2013 00:01:00 DIS Outpatient SUZI LOMAS MD [facility] ONC PORT FLUSH [id number] 05/21/2013 11:52:00 05/21/2013 23:59:59 CLS Outpatient OSKAR HANSEN DO [facility] RAD CHRONIC KIDNEY DISEASE STAGE IV [id number] 04/30/2013 10:56:00 04/30/2013 23:59:59 CLS Outpatient OCTAVIA LIMON FACC, ALI FACP CCDS [facility] RAD DYSPNEA,HTN, HYPERLIPIDEMIA,VERTIGO [id number] 04/27/2013 08:33:00 04/27/2013 23:59:59 CLS Outpatient OCTAVIA LIMON FACMoises, ALI FACP CCDS [facility] CARD DYSPNEA,HTN, HYPERLIPIDEMIA,VERTIGO [id number] 01/24/2013 14:05:00 03/19/2013 00:01:00 DIS Outpatient SUZI LOMAS MD [facility] ONC PORT FLUSH [id number] 04/20/2016 07:31:00 Document Registration [id number] 08/01/2013 00:00:00 Document Registration [id number] 12/19/2012 00:00:00 Document Registration [id number] 11/15/2012 14:11:00 Document Registration [id number] 10/20/2012 09:27:00 Document Registration [id number] 09/21/2012 10:31:00 Document Registration [id number] 07/21/2012 09:47:00 Document Registration [id number] 04/19/2012 14:27:00 Document Registration [id number] 12/29/2011 15:22:00 Document Registration [id number] 09/01/2011 13:27:00 Document Registration
--- NOTE | 2017-12-26 12:50 | Diagnostic Imaging Report ---
PATIENT HISTORY: Fever and cough for 2 days. TECHNIQUE: Two views of the chest. COMPARISON: 03/14/2017 FINDINGS: The left-sided Port-A-Cath is in stable position, with the tip projecting over the low SVC. There are patchy airspace opacities in the right lung base. No pleural effusion or pneumothorax is seen. The cardiac silhouette is stable in size. There is aortic atherosclerosis. No acute osseous abnormality is seen. IMPRESSION: 1. Patchy right basilar infiltrate, concerning for infection in the appropriate clinical setting. Dictated by: Dictated on workstation # [id number]
[2017-12-26] MEDS ORDERED: AMOX-358 PO (12:56)
--- NOTE | 2017-12-26 12:56 | ED Cough/URI ---
General Chief Complaint: Fever-Adult/Adol Stated Complaint: FEVER,COUGH Nursing Triage Note: PATIENT STATES THAT HE HAS HAD A COUGH AND A FEVER FOR A COUPLE OF DAYS. Source: patient Exam Limitations: no limitations History of Present Illness Date Seen by Provider: Dec 26, 2017 Time Seen by Provider: 12:54 Initial Comments To ER with reports of a cough and fever for a few days. Timing/Duration: constant, getting worse Severity/Quality: productive cough Associated Symptoms: cough, fever/chills Allergies and Home Medications Allergies Coded Allergies: No Known Drug Allergies (Verified , 10/26/07) Home Medications Alprazolam 0.5 Mg Tablet, 0.5 MG PO Q6H PRN for ANXIETY, (Reported) Amitriptyline Hcl 50 Mg Tablet, 50 MG PO HS, (Reported) Amoxicillin/Potassium Clav 1 Each Tablet, 1 EACH PO BID, #14 Prescribed by: OSKAR STATON on 12/26/17 1256 Atorvastatin Calcium 10 Mg Tablet, 10 MG PO HS, (Reported) Cholecalciferol (Vitamin D3) 1,000 Unit Tablet, 1,000 UNIT PO HS, (Reported) Diltiazem Hcl 90 Mg Tablet, 180 MG PO DAILY, (Reported) TAKES 2 (90MG) TABLETS Finasteride 5 Mg Tablet, 5 MG PO HS, (Reported) Gabapentin 300 Mg Cap, 600 MG PO BID, (Reported) TAKES 2 (300MG) CAPSULES Glimepiride 4 Mg Tablet, 8 MG PO DAILY, (Reported) TAKES 2 (4MG) TABLETS Hydrocodone Bit/Acetaminophen 1 Each Tablet, 1 TAB PO Q6H PRN for PAIN, ( Reported) Insulin Aspart 100 Unit/1 Ml Insuln.pen, 11 UNITS SQ AC, (Reported) Insulin Glargine,Hum.rec.anlog 100 Unit/1 Ml Cartridge, 18 UNIT SQ HS, (Reported ) Levofloxacin 750 Mg Tablet, 750 MG PO DAILY, #5 Ref 0 Prescribed by: OSKAR HANSEN on 04/22/15 0942 Lisinopril 10 Mg Tablet, 10 MG PO DAILY, (Reported) Magnesium Oxide 400 Mg Tablet, 400 MG PO DAILY, (Reported) Omeprazole 20 Mg Capsule.dr, 20 MG PO BID, (Reported) Vitamin B Complex 1 Cap Capsule, 1 CAP PO HS, (Reported) Constitutional: see HPI, chills EENTM: see HPI Respiratory: see HPI, cough Cardiovascular: no symptoms reported Genitourinary: no symptoms reported Musculoskeletal: no symptoms reported Skin: no symptoms reported Psychiatric/Neurological: No Symptoms Reported Hematologic/Lymphatic: No Symptoms Reported Immunological/Allergic: no symptoms reported Past Ydqvrgl-Golhaz-Fbelmy Hx Patient Social History Alcohol Use: Rarely Uses Recreational Drug Use: No Smoking Status: Former Smoker 2nd Hand Smoke Exposure: Yes Recent Foreign Travel: No Contact w/Someone Who Travel: No Recent Infectious Disease Expo: No Immunizations Up To Date Tetanus Booster (TDap): Unknown PED Vaccines UTD: No Date of Pneumonia Vaccine: Nov 07, 2012 Date of Influenza Vaccine: Aug 07, 2014 Seasonal Allergies Seasonal Allergies: No Surgeries History of Surgeries: Yes (PORT PLACEMENT, LYMPH NODE BIOPSY, ) Surgeries: Appendectomy Respiratory History of Respiratory Disorde: No Cardiovascular History of Cardiac Disorders: Yes Cardiac Disorders: Hypertension Neurological History of Neurological Disord: No Reproductive System Hx Reproductive Disorders: No Gastrointestinal History of Gastrointestinal Di: No Musculoskeletal History of Musculoskeletal Dis: No Endocrine History of Endocrine Disorders: Yes Endocrine Disorders: Diabetes, Insulin dep Cancer History of Cancer: Yes Cancer: Lymphoma Psychosocial History of Psychiatric Problem: Yes Behavioral Health Disorders: Sleep Difficulties, Anxiety Integumentary History of Skin or Integumenta: No Blood Transfusions History of Blood Disorders: No Family Medical History Family Medial History: Alcoholism G8 BROTHER Cataracts 19 FATHER 19 MOTHER Completed stroke 19 MOTHER FH: lung cancer 19 FATHER No Family History of: AIDS Abdominal aortic aneurysm Nicolás's disease Alzheimer's disease Aphasia Arthritis Asthma Cancer of mouth Cardiovascular disease Colon cancer Congenital disease Congenital heart disease Coronary thrombosis Cystic fibrosis Deafness or hearing loss Dementia Diabetes mellitus Drug abuse Dysphasia Fibrocystic disease of breast Gastroenteritis Glaucoma Headache disorder Hypercholesterolemia Hypertension Infertility Kidney disease Myocardial infarction Neoplasm Not obtainable due to adoption Osteoporosis Parkinson's disease Prostate cancer Psychosocial problem Respiratory disorder Seizure disorder Severe allergy Thyroid disease Tuberculosis Visual disorder Physical Exam Vital Signs Vital Signs - First Documented 12/26/17 11:24 Temp 100.4 Pulse 104 B/P (MAP) 137/72 (93) Pulse Ox 100 O2 Delivery Room Air Capillary Refill : Less Than 3 Seconds General Appearance: WD/WN, no apparent distress Eyes: Bilateral Eye Normal Inspection, Bilateral Eye PERRL, Bilateral Eye EOMI HEENT: PERRL/EOMI, normal ENT inspection Neck: non-tender, full range of motion Respiratory: no respiratory distress, no accessory muscle use, crackles (right lung base) Cardiovascular: regular rate, rhythm, no murmur Gastrointestinal: normal bowel sounds, non tender, soft Neurologic/Psychiatric: alert, normal mood/affect, oriented x 3 Skin: normal color, warm/dry Progress/Results/Core Measures Suspected Sepsis Recent Fever Within 48 Hours: Yes Infection Criteria Present: Suspected New Infection New/Unexplained Altered Menta: No Sepsis Screen: Possible Sepsis Risk Sepsis Diagnosis: SIRS Temperature:100.4 Pulse: 104 Respiratory Rate: Blood Pressure 137 /72 Mean: 93 Results/Orders Micro Results Microbiology 12/26/17 Influenza Types A,B Antigen ([facility]) - Final, Complete Vital Signs/I&O Vital Sign - Last 12Hours 12/26/17 11:24 Temp 100.4 Pulse 104 B/P (MAP) 137/72 (93) Pulse Ox 100 O2 Delivery Room Air Capillary Refill : Less Than 3 Seconds Blood Pressure Mean: 93 Departure Impression Impression: Primary Impression: Right lower lobe pneumonia Disposition: 01 HOME, SELF-CARE Condition: Stable Departure-Patient Inst. Decision time for Depature: 12:55 Referrals: OSKAR HANSEN DO (PCP/Family) Primary Care Physician Patient Instructions: Community-Acquired Pneumonia in Adults Add. Discharge Instructions: 1. Return to ER for any concerns 2. Antibiotics as directed 3. Call your doctor for follow-up this week 3. All discharge instructions reviewed with patient and/or family. Voiced understanding. Scripts Amoxicillin/Potassium Clav (Augmentin 875-125 Tablet) 1 Each Tablet 1 EACH PO BID, #14 TAB Prov: OSKAR STATON APRN 12/26/17 Copy Copies To 1: OSKAR HANSEN PETER J APRN Dec 26, 2017 12:56
[2017-12-26 13:07] VITALS: BP 137/72
== END 2017-12-26 13:04 | disposition home or self-care (01) ==
LOC: EDUNIT# 10:55 → ER 10:57
DX: J18.1 Lobar pneumonia, unspecified organism (principal); I10 Essential (primary) hypertension; E11.9 Type 2 diabetes mellitus without complications; F41.9 Anxiety disorder, unspecified; Z80.1 Family history of malignant neoplasm of trachea, bronchus and lung; Z85.72 Personal history of non-Hodgkin lymphomas; Z79.84 Long term (current) use of oral hypoglycemic drugs; Z79.4 Long term (current) use of insulin; Z87.891 Personal history of nicotine dependence; Z90.49 Acquired absence of other specified parts of digestive tract
CPT/HCPCS: 71046; 87804

== ENCOUNTER 2018-01-16 08:47 | Outpatient (RCR) | payer MEDICARE ==
[2017-12-14 14:47] LABS: BASOPHILS % (AUTO) 1 % (0-10); EOSINOPHILS # (AUTO) 0.3 10^3/uL (0.0-0.3); EOSINOPHILS % (AUTO) 3 % (0-10); HEMATOCRIT 37 % (40-54); HEMOGLOBIN 12.8 G/DL (13.3-17.7); LYMPHOCYTES # (AUTO) 1.9 X 10^3 (1.0-4.0); LYMPHOCYTES % (AUTO) 25 % (12-44); MEAN CORPUSCULAR HEMOGLOBIN 33 PG (25-34); MEAN CORPUSCULAR HGB CONC 35 G/DL (32-36); MEAN CORPUSCULAR VOLUME 95 FL (80-99); MEAN PLATELET VOLUME 10.4 FL (7.4-10.4); MONOCYTES # (AUTO) 0.9 X 10^3 (0.0-1.0); MONOCYTES % (AUTO) 12 % (0-12); NEUTROPHILS # (AUTO) 4.4 X 10^3 (1.8-7.8); NEUTROPHILS % (AUTO) 59 % (42-75); PLATELET COUNT 205 10^3/uL (130-400); RED BLOOD COUNT 3.85 10^6/uL (4.35-5.85); RED CELL DISTRIBUTION WIDTH 14.6 % (10.0-14.5); WHITE BLOOD COUNT 7.5 10^3/uL (4.3-11.0)
[2017-12-14 15:09] LABS: ALBUMIN 4.1 GM/DL (3.2-4.5); CALCIUM 9.1 MG/DL (8.5-10.1); CREATININE SERUM 1.71 MG/DL (0.60-1.30); POTASSIUM 4.3 MMOL/L (3.6-5.0); TOTAL PROTEIN 6.6 GM/DL (6.4-8.2)
== END 2018-02-15 | disposition home or self-care (01) ==
LOC: ONC 08:47
PROVIDERS: ATTEND Internal Medicine Hematology & Oncology
DX: C85.11 Unspecified B-cell lymphoma, lymph nodes of head, face, and neck (principal); D64.81 Anemia due to antineoplastic chemotherapy; D63.1 Anemia in chronic kidney disease; N18.9 Chronic kidney disease, unspecified; I12.9 Hypertensive chronic kidney disease with stage 1 through stage 4 chronic kidney disease, or unspecified chronic kidney disease; E11.22 Type 2 diabetes mellitus with diabetic chronic kidney disease; E78.5 Hyperlipidemia, unspecified; F41.9 Anxiety disorder, unspecified; G62.0 Drug-induced polyneuropathy; T45.1X5A Adverse effect of antineoplastic and immunosuppressive drugs, initial encounter; Z45.2 Encounter for adjustment and management of vascular access device
CPT/HCPCS: 36591; 80053; 83615; 85025; 96523

== ENCOUNTER → 2018-01-16 | Outpatient (CLI) | payer MEDICARE ==
[~2018-01-16] MED LIST changes: +AMOX-358 PO
--- NOTE | 2018-01-16 09:03 | Diagnostic Imaging Report ---
PROCEDURE: CT head without contrast. TECHNIQUE: Multiple contiguous axial images were obtained through the brain without the use of intravenous contrast. INDICATION: Dizziness. FINDINGS: There is no mass, shift of midline or hemorrhage to suggest an acute intracranial abnormality. The ventricles are not abnormally dilated and stable in size when compared to the prior exam of 04/21/2015. The senescent changes seen on the prior study including cortical atrophy and periventricular encephalomalacia have not changed. The bone windows show no sign of a fracture or destructive lesion. The sinuses are generally clear. The orbits are symmetrical and within normal limits. IMPRESSION: 1. There is no evidence for an acute intracranial abnormality. 2. If clinical concern regarding an underlying abnormality persists, then MRI would be recommended for further study. Dictated by: Dictated on workstation # [id number]
--- NOTE | 2018-01-16 09:43 | Diagnostic Imaging Report ---
PROCEDURE: US carotid duplex, bilateral. TECHNIQUE: Multiple real-time grayscale images were obtained over the carotid arteries in various projections, bilaterally. Additional duplex Doppler and color Doppler images were also obtained. INDICATION: Dizziness. COMPARISON: There are no prior studies available for comparison. FINDINGS: The previous exam of 04/27/2013 noted mild atherosclerotic changes involving both carotid systems but failed to show any sign of a hemodynamically significant stenosis. On this exam there is still only mild hard and soft plaque formation involving both carotid systems. The flow velocities failed to show any sign of a hemodynamically significant stenosis of the common or internal carotid arteries. The flow velocities are as follows: Mid CCA right 72.7 left 74.5 Proximal ICA right 79.2 left 48.7 Mid ICA to right 86.2 left 82.7 Distal ICA right 58.6 left 117 IC/CC ratio right 1.2 left 1.6. Both vertebral arteries were identified and there was antegrade flow bilaterally. IMPRESSION: There is atherosclerotic disease involving both carotid systems but there is no evidence for hemodynamically significant stenosis of the common or internal carotid arteries. Parameters based on the consensus panel Pyle-Scale and Doppler ultrasound criteria published September 2003, Radiology, Volume 229 Dictated on workstation # [id number]
== END ==
LOC: RAD 08:16
PROVIDERS: ATTEND Internal Medicine
DX: I65.23 Occlusion and stenosis of bilateral carotid arteries (principal)
CPT/HCPCS: 70450; 93880

== ENCOUNTER → 2018-03-15 | Outpatient (CLI) | payer MEDICARE ==
--- NOTE | 2018-03-15 15:08 | Diagnostic Imaging Report ---
INDICATION: Left foot ulcer. COMPARISON: None. FINDINGS: Three views of the left foot demonstrate no acute fracture or dislocation. There are no focal osseous lesions. There is mild soft tissue swelling of the forefoot.. Joint spaces are well maintained. No radiopaque foreign bodies are seen. IMPRESSION: 1. Mild soft tissue swelling of the forefoot, but no appreciable underlying acute osseous abnormality is identified. Please note, however, that osteomyelitis cannot be excluded based on radiographs alone. If there is concern for osteomyelitis, MRI is recommended. Dictated by: Dictated on workstation # [id number]
== END ==
LOC: RAD 14:35
PROVIDERS: ATTEND Surgery
DX: E11.621 Type 2 diabetes mellitus with foot ulcer (principal); E11.42 Type 2 diabetes mellitus with diabetic polyneuropathy; L97.522 Non-pressure chronic ulcer of other part of left foot with fat layer exposed; C85.10 Unspecified B-cell lymphoma, unspecified site
CPT/HCPCS: 36415; 73630; 83036

== ENCOUNTER → 2018-03-15 | Outpatient (CLI) | payer MEDICARE | LOC: WOUNDCARE 12:47 | PROVIDERS: ATTEND Surgery | DX: E11.621 Type 2 diabetes mellitus with foot ulcer (principal); L97.522 Non-pressure chronic ulcer of other part of left foot with fat layer exposed; E11.42 Type 2 diabetes mellitus with diabetic polyneuropathy; C85.10 Unspecified B-cell lymphoma, unspecified site | CPT/HCPCS: 11042 ==

== ENCOUNTER → 2018-03-22 | Outpatient (CLI) | payer MEDICARE | LOC: WOUNDCARE 12:32 | PROVIDERS: ATTEND Surgery | DX: E11.621 Type 2 diabetes mellitus with foot ulcer (principal); L97.522 Non-pressure chronic ulcer of other part of left foot with fat layer exposed; E11.42 Type 2 diabetes mellitus with diabetic polyneuropathy; C85.10 Unspecified B-cell lymphoma, unspecified site | CPT/HCPCS: 15275; 87070; 87075; 87205 ==

== ENCOUNTER → 2018-03-29 | Outpatient (CLI) | payer MEDICARE | LOC: WOUNDCARE 14:04 | PROVIDERS: ATTEND Surgery | DX: E11.621 Type 2 diabetes mellitus with foot ulcer (principal); E11.42 Type 2 diabetes mellitus with diabetic polyneuropathy; L97.522 Non-pressure chronic ulcer of other part of left foot with fat layer exposed; C85.10 Unspecified B-cell lymphoma, unspecified site | CPT/HCPCS: 15275 ==

== ENCOUNTER → 2018-04-05 | Outpatient (CLI) | payer MEDICARE ==
[~2018-04-05] MED LIST changes: +BARIUM SUSPENSION 2.1% (VANILLA SILQ) 450 ML PO ONE; +IOHEXOL 350 MG/ML 100 ML (OMNIPAQUE 350) VIAL IV ONE; +NS 250 ML (IVPB) BAG IV ONE
--- NOTE | 2018-04-05 13:20 | Diagnostic Imaging Report ---
INDICATION: Follicular lymphoma. TECHNIQUE: Multiple contiguous axial images were obtained through the neck, chest, abdomen, and pelvis after the administration of intravenous contrast. COMPARISON: Comparison is made with prior CT from 06/24/2016. CT neck: FINDINGS: The visualized intracranial structures are unremarkable. The posterior nasopharynx, oropharynx, and larynx are unremarkable. Submandibular and parotid glands appear to be symmetric bilaterally. No dominant thyroid mass is detected. No enlarged cervical lymph nodes are seen. Small lymph nodes in the supraclavicular regions are noted bilaterally and appear stable. IMPRESSION: Stable CT of the neck when compared with exam from 06/24/2016. CT chest: FINDINGS: The left chest wall port has tip overlying the SVC. No pathologically enlarged axillary nodes are seen. The right paratracheal lymph node appears stable with short axis measurement of approximately 7 mm. Subcarinal node is stable with a short axis measurement of 9 mm compared with 10 mm on prior. No definite hilar lymphadenopathy is seen. Coronary arterial calcifications are noted. No pericardial or pleural fluid is identified. Biapical pleural-parenchymal scarring is seen. Centrilobular emphysematous changes in both lungs are noted. There appears to be some scarring or atelectasis in the right lower lobe and lingula, similar to prior exam. IMPRESSION: Stable CT chest when compared with prior study. The mediastinal lymph nodes are stable. There is no evidence of parenchymal metastatic disease. CT abdomen and pelvis: FINDINGS: No discrete liver mass is identified. The gallbladder contains stones. The pancreas and spleen are unremarkable. No adrenal mass is identified. Bilateral renal low densities are present consistent with cysts, similar to prior exam. Aorta is heavily calcified but nonaneurysmal. No definite central retroperitoneal or mesenteric lymphadenopathy is seen. The bowel loops appear to be normal caliber. There is no ascites. No inguinal or iliac lymphadenopathy is detected. There is sigmoid diverticulosis without evidence of acute diverticulitis. The bladder is decompressed. IMPRESSION: Stable CT of abdomen and pelvis when compared with exam from 06/24/2016 again demonstrating cholelithiasis and bilateral renal cysts. No abdominal or pelvic lymphadenopathy is seen. There is uncomplicated diverticulosis. Dictated by: Dictated on workstation # [id number]
== END ==
LOC: RAD 11:26
PROVIDERS: ATTEND Internal Medicine Hematology & Oncology
DX: C82.88 Other types of follicular lymphoma, lymph nodes of multiple sites (principal); K80.20 Calculus of gallbladder without cholecystitis without obstruction; N28.1 Cyst of kidney, acquired
CPT/HCPCS: 70491; 71260; 74176

== ENCOUNTER → 2018-04-05 | Outpatient (CLI) | payer MEDICARE ==
[~2018-04-05] MED LIST changes: -BARIUM SUSPENSION 2.1% (VANILLA SILQ) 450 ML PO ONE; -IOHEXOL 350 MG/ML 100 ML (OMNIPAQUE 350) VIAL IV ONE; -NS 250 ML (IVPB) BAG IV ONE
== END ==
LOC: WOUNDCARE 13:45
PROVIDERS: ATTEND Surgery
DX: E11.621 Type 2 diabetes mellitus with foot ulcer (principal); L97.521 Non-pressure chronic ulcer of other part of left foot limited to breakdown of skin; E11.42 Type 2 diabetes mellitus with diabetic polyneuropathy; C85.10 Unspecified B-cell lymphoma, unspecified site
CPT/HCPCS: 99212

== ENCOUNTER 2018-04-12 13:21 | Outpatient (RCR) | payer MEDICARE ==
[2018-03-08 14:16] LABS: BASOPHILS % (AUTO) 0 % (0-10); EOSINOPHILS # (AUTO) 0.2 10^3/uL (0.0-0.3); EOSINOPHILS % (AUTO) 3 % (0-10); HEMATOCRIT 35 % (40-54); HEMOGLOBIN 11.9 G/DL (13.3-17.7); LYMPHOCYTES % (AUTO) 28 % (12-44); MEAN CORPUSCULAR HEMOGLOBIN 31 PG (25-34); MEAN CORPUSCULAR HGB CONC 34 G/DL (32-36); MEAN CORPUSCULAR VOLUME 92 FL (80-99); MEAN PLATELET VOLUME 9.8 FL (7.4-10.4); MONOCYTES # (AUTO) 0.7 X 10^3 (0.0-1.0); MONOCYTES % (AUTO) 9 % (0-12); NEUTROPHILS # (AUTO) 4.3 X 10^3 (1.8-7.8); NEUTROPHILS % (AUTO) 60 % (42-75); PLATELET COUNT 236 10^3/uL (130-400); WHITE BLOOD COUNT 7.3 10^3/uL (4.3-11.0)
[2018-03-08 14:39] LABS: ALBUMIN 3.8 GM/DL (3.2-4.5); BILIRUBIN,TOTAL 0.7 MG/DL (0.1-1.0); CALCIUM 8.6 MG/DL (8.5-10.1); CREATININE SERUM 1.72 MG/DL (0.60-1.30); POTASSIUM 4.1 MMOL/L (3.6-5.0); TOTAL PROTEIN 6.2 GM/DL (6.4-8.2)
[~2018-04-12 13:21] MED LIST changes: +NS IV 1000 ML (CANCER CTR) 1,000 ML ONE
== END 2018-06-06 | disposition home or self-care (01) ==
LOC: ONC 13:21
PROVIDERS: ATTEND Internal Medicine Hematology & Oncology
DX: C85.11 Unspecified B-cell lymphoma, lymph nodes of head, face, and neck (principal); D64.81 Anemia due to antineoplastic chemotherapy; D63.1 Anemia in chronic kidney disease; N18.9 Chronic kidney disease, unspecified; I12.9 Hypertensive chronic kidney disease with stage 1 through stage 4 chronic kidney disease, or unspecified chronic kidney disease; E11.22 Type 2 diabetes mellitus with diabetic chronic kidney disease; E78.5 Hyperlipidemia, unspecified; F41.9 Anxiety disorder, unspecified; G62.0 Drug-induced polyneuropathy; T45.1X5A Adverse effect of antineoplastic and immunosuppressive drugs, initial encounter; Z45.2 Encounter for adjustment and management of vascular access device
CPT/HCPCS: 36591; 80053; 82728; 83540; 83615; 85025; 96360; 96361; 96523

== ENCOUNTER → 2018-04-12 | Outpatient (CLI) | payer MEDICARE | LOC: WOUNDCARE 12:33 | PROVIDERS: ATTEND Surgery | DX: E11.621 Type 2 diabetes mellitus with foot ulcer (principal); E11.42 Type 2 diabetes mellitus with diabetic polyneuropathy; L97.521 Non-pressure chronic ulcer of other part of left foot limited to breakdown of skin; C85.10 Unspecified B-cell lymphoma, unspecified site | CPT/HCPCS: 99212 ==

== ENCOUNTER 2018-05-24 15:00 | Outpatient (RCR) | payer MEDICARE ==
[~2018-05-24 15:00] MED LIST changes: -NS IV 1000 ML (CANCER CTR) 1,000 ML ONE
== END 2018-06-06 | disposition home or self-care (01) ==
LOC: ONC 15:00
PROVIDERS: ATTEND Internal Medicine Hematology & Oncology
DX: C82.88 Other types of follicular lymphoma, lymph nodes of multiple sites (principal); F41.9 Anxiety disorder, unspecified; I12.9 Hypertensive chronic kidney disease with stage 1 through stage 4 chronic kidney disease, or unspecified chronic kidney disease; N18.3 Chronic kidney disease, stage 3 (moderate); D63.1 Anemia in chronic kidney disease; E78.5 Hyperlipidemia, unspecified; E11.42 Type 2 diabetes mellitus with diabetic polyneuropathy; Z79.4 Long term (current) use of insulin; Z79.899 Other long term (current) drug therapy
CPT/HCPCS: 96523

== ENCOUNTER 2018-07-05 14:16 | Outpatient (RCR) | payer MEDICARE ==
[2018-07-05 14:33] LABS: BASOPHILS # (AUTO) 0.1 10^3/uL (0.0-0.1); BASOPHILS % (AUTO) 1 % (0-10); EOSINOPHILS # (AUTO) 0.2 10^3/uL (0.0-0.3); EOSINOPHILS % (AUTO) 3 % (0-10); HEMATOCRIT 36 % (40-54); HEMOGLOBIN 12.5 G/DL (13.3-17.7); LYMPHOCYTES # (AUTO) 2.6 X 10^3 (1.0-4.0); LYMPHOCYTES % (AUTO) 29 % (12-44); MEAN CORPUSCULAR HEMOGLOBIN 32 PG (25-34); MEAN CORPUSCULAR HGB CONC 35 G/DL (32-36); MEAN CORPUSCULAR VOLUME 93 FL (80-99); MEAN PLATELET VOLUME 9.7 FL (7.4-10.4); MONOCYTES % (AUTO) 11 % (0-12); NEUTROPHILS # (AUTO) 5.1 X 10^3 (1.8-7.8); NEUTROPHILS % (AUTO) 57 % (42-75); PLATELET COUNT 278 10^3/uL (130-400); RED BLOOD COUNT 3.88 10^6/uL (4.35-5.85); RED CELL DISTRIBUTION WIDTH 14.8 % (10.0-14.5)
[2018-07-05 14:50] LABS: CALCIUM 8.7 MG/DL (8.5-10.1); CREATININE SERUM 1.68 MG/DL (0.60-1.30); POTASSIUM 3.7 MMOL/L (3.6-5.0); TOTAL PROTEIN 6.3 GM/DL (6.4-8.2)
== END 2018-07-07 | disposition home or self-care (01) ==
LOC: ONC 14:16
PROVIDERS: ATTEND Internal Medicine Hematology & Oncology
DX: C85.11 Unspecified B-cell lymphoma, lymph nodes of head, face, and neck (principal); D64.81 Anemia due to antineoplastic chemotherapy; D63.1 Anemia in chronic kidney disease; N18.9 Chronic kidney disease, unspecified; I12.9 Hypertensive chronic kidney disease with stage 1 through stage 4 chronic kidney disease, or unspecified chronic kidney disease; E11.22 Type 2 diabetes mellitus with diabetic chronic kidney disease; E78.5 Hyperlipidemia, unspecified; F41.9 Anxiety disorder, unspecified; G62.0 Drug-induced polyneuropathy; T45.1X5A Adverse effect of antineoplastic and immunosuppressive drugs, initial encounter
CPT/HCPCS: 36591; 80053; 85025

== ENCOUNTER → 2018-11-15 | Outpatient (RCR) | payer MEDICARE ==
[2018-10-04 14:52] LABS: BASOPHILS # (AUTO) 0.1 10^3/uL (0.0-0.1); BASOPHILS % (AUTO) 1 % (0-10); EOSINOPHILS # (AUTO) 0.3 10^3/uL (0.0-0.3); EOSINOPHILS % (AUTO) 3 % (0-10); HEMATOCRIT 38 % (40-54); HEMOGLOBIN 13.2 G/DL (13.3-17.7); LYMPHOCYTES # (AUTO) 1.9 X 10^3 (1.0-4.0); LYMPHOCYTES % (AUTO) 23 % (12-44); MEAN CORPUSCULAR HEMOGLOBIN 32 PG (25-34); MEAN CORPUSCULAR HGB CONC 35 G/DL (32-36); MEAN CORPUSCULAR VOLUME 94 FL (80-99); MEAN PLATELET VOLUME 10.3 FL (7.4-10.4); MONOCYTES # (AUTO) 0.8 X 10^3 (0.0-1.0); MONOCYTES % (AUTO) 10 % (0-12); NEUTROPHILS # (AUTO) 5.3 X 10^3 (1.8-7.8); NEUTROPHILS % (AUTO) 64 % (42-75); PLATELET COUNT 249 10^3/uL (130-400); RED BLOOD COUNT 4.08 10^6/uL (4.35-5.85); RED CELL DISTRIBUTION WIDTH 14.6 % (10.0-14.5); WHITE BLOOD COUNT 8.3 10^3/uL (4.3-11.0)
[2018-10-04 15:16] LABS: BILIRUBIN,TOTAL 0.9 MG/DL (0.1-1.0); CREATININE SERUM 1.81 MG/DL (0.60-1.30); POTASSIUM 3.9 MMOL/L (3.6-5.0); TOTAL PROTEIN 6.6 GM/DL (6.4-8.2)
== END | disposition home or self-care (01) ==
LOC: ONC 08-17 14:21
PROVIDERS: ATTEND Internal Medicine Hematology & Oncology
DX: C82.88 Other types of follicular lymphoma, lymph nodes of multiple sites (principal); D64.81 Anemia due to antineoplastic chemotherapy; D63.1 Anemia in chronic kidney disease; N18.3 Chronic kidney disease, stage 3 (moderate); I12.9 Hypertensive chronic kidney disease with stage 1 through stage 4 chronic kidney disease, or unspecified chronic kidney disease; E11.22 Type 2 diabetes mellitus with diabetic chronic kidney disease; E11.42 Type 2 diabetes mellitus with diabetic polyneuropathy; E78.5 Hyperlipidemia, unspecified; F41.9 Anxiety disorder, unspecified; G62.0 Drug-induced polyneuropathy; T45.1X5A Adverse effect of antineoplastic and immunosuppressive drugs, initial encounter; Z79.4 Long term (current) use of insulin; Z79.899 Other long term (current) drug therapy; Z45.2 Encounter for adjustment and management of vascular access device
CPT/HCPCS: 80053; 85025; 96523

== ENCOUNTER 2019-07-03 14:03 | Outpatient (RCR) | payer MEDICARE ==
[2019-04-10 14:11] LABS: BASOPHILS # (AUTO) 0.1 10^3/uL (0.0-0.1); BASOPHILS % (AUTO) 1 % (0-10); EOSINOPHILS # (AUTO) 0.2 10^3/uL (0.0-0.3); EOSINOPHILS % (AUTO) 3 % (0-10); HEMATOCRIT 35 % (40-54); HEMOGLOBIN 11.8 G/DL (13.3-17.7); LYMPHOCYTES # (AUTO) 1.7 X 10^3 (1.0-4.0); LYMPHOCYTES % (AUTO) 24 % (12-44); MEAN CORPUSCULAR HEMOGLOBIN 31 PG (25-34); MEAN CORPUSCULAR HGB CONC 34 G/DL (32-36); MEAN CORPUSCULAR VOLUME 94 FL (80-99); MEAN PLATELET VOLUME 9.2 FL (7.4-10.4); MONOCYTES # (AUTO) 0.8 X 10^3 (0.0-1.0); MONOCYTES % (AUTO) 11 % (0-12); NEUTROPHILS # (AUTO) 4.2 X 10^3 (1.8-7.8); NEUTROPHILS % (AUTO) 60 % (42-75); PLATELET COUNT 239 10^3/uL (130-400); RED CELL DISTRIBUTION WIDTH 14.3 % (10.0-14.5); WHITE BLOOD COUNT 6.9 10^3/uL (4.3-11.0)
[2019-04-10 14:33] LABS: ALBUMIN 3.9 GM/DL (3.2-4.5); BILIRUBIN,TOTAL 0.5 MG/DL (0.1-1.0); CREATININE SERUM 2.18 MG/DL (0.60-1.30); TOTAL PROTEIN 6.2 GM/DL (6.4-8.2)
[~2019-07-03 14:03] MED LIST changes: +NS (IVPB) CANCER CENTER 250 ML ONE
== END 2019-07-09 | disposition home or self-care (01) ==
LOC: ONC 14:03
PROVIDERS: ATTEND Internal Medicine Hematology & Oncology
DX: C82.88 Other types of follicular lymphoma, lymph nodes of multiple sites (principal); D64.81 Anemia due to antineoplastic chemotherapy; D63.1 Anemia in chronic kidney disease; N18.3 Chronic kidney disease, stage 3 (moderate); I12.9 Hypertensive chronic kidney disease with stage 1 through stage 4 chronic kidney disease, or unspecified chronic kidney disease; E11.22 Type 2 diabetes mellitus with diabetic chronic kidney disease; E11.42 Type 2 diabetes mellitus with diabetic polyneuropathy; E78.5 Hyperlipidemia, unspecified; F41.9 Anxiety disorder, unspecified; G62.0 Drug-induced polyneuropathy; T45.1X5A Adverse effect of antineoplastic and immunosuppressive drugs, initial encounter; Z79.4 Long term (current) use of insulin; Z79.899 Other long term (current) drug therapy; Z45.2 Encounter for adjustment and management of vascular access device
CPT/HCPCS: 36591; 80053; 83615; 85025; 96523

== ENCOUNTER 2019-10-29 13:12 | Outpatient (RCR) | payer MEDICARE ==
[~2019-10-29 13:12] MED LIST changes: -NS (IVPB) CANCER CENTER 250 ML ONE
[2019-10-29 13:35] LABS: BASOPHILS # (AUTO) 0.1 10^3/uL (0.0-0.1); BASOPHILS % (AUTO) 1 % (0-10); EOSINOPHILS # (AUTO) 0.3 10^3/uL (0.0-0.3); EOSINOPHILS % (AUTO) 3 % (0-10); HEMATOCRIT 35 % (40-54); HEMOGLOBIN 11.7 G/DL (13.3-17.7); LYMPHOCYTES # (AUTO) 2.1 X 10^3 (1.0-4.0); LYMPHOCYTES % (AUTO) 21 % (12-44); MEAN CORPUSCULAR HEMOGLOBIN 31 PG (25-34); MEAN CORPUSCULAR HGB CONC 33 G/DL (32-36); MEAN CORPUSCULAR VOLUME 93 FL (80-99); MEAN PLATELET VOLUME 9.7 FL (7.4-10.4); MONOCYTES % (AUTO) 10 % (0-12); NEUTROPHILS # (AUTO) 6.5 X 10^3 (1.8-7.8); NEUTROPHILS % (AUTO) 65 % (42-75); PLATELET COUNT 295 10^3/uL (130-400); RED CELL DISTRIBUTION WIDTH 14.8 % (10.0-14.5)
[2019-10-29 13:56] LABS: BILIRUBIN,TOTAL 0.7 MG/DL (0.1-1.0); CALCIUM 8.6 MG/DL (8.5-10.1); CREATININE SERUM 2.3 MG/DL (0.60-1.30); POTASSIUM 4.2 MMOL/L (3.6-5.0); TOTAL PROTEIN 6.4 GM/DL (6.4-8.2)
== END 2019-11-12 | disposition home or self-care (01) ==
LOC: ONC 13:12
PROVIDERS: ATTEND Internal Medicine Hematology & Oncology
DX: Z45.2 Encounter for adjustment and management of vascular access device (principal); C82.99 Follicular lymphoma, unspecified, extranodal and solid organ sites; D63.1 Anemia in chronic kidney disease; N18.3 Chronic kidney disease, stage 3 (moderate)
CPT/HCPCS: 36591; 80053; 82728; 83540; 85025; 96523

== ENCOUNTER 2020-02-25 13:33 | Outpatient (RCR) | payer MEDICARE | END 2020-03-09 | disposition home or self-care (01) | LOC: ONC 13:33 | PROVIDERS: ATTEND Internal Medicine Hematology & Oncology | DX: Z45.2 Encounter for adjustment and management of vascular access device (principal); C82.99 Follicular lymphoma, unspecified, extranodal and solid organ sites; D63.1 Anemia in chronic kidney disease; N18.3 Chronic kidney disease, stage 3 (moderate) | CPT/HCPCS: 96523 ==

== ENCOUNTER 2020-09-10 13:07 | Outpatient (RCR) | payer MEDICARE | END 2020-09-23 | disposition home or self-care (01) | LOC: ONC 13:07 | PROVIDERS: ATTEND Internal Medicine Hematology & Oncology | DX: Z45.2 Encounter for adjustment and management of vascular access device (principal); C82.99 Follicular lymphoma, unspecified, extranodal and solid organ sites; D63.1 Anemia in chronic kidney disease; N18.30 Chronic kidney disease, stage 3 unspecified | CPT/HCPCS: 96523 ==

== ENCOUNTER 2020-09-27 16:19 | Inpatient (IN) | payer MEDICARE ==
[2020-09-27] VITALS (7 sets, daily range): BP systolic 123–161; BP diastolic 75–94
[~2020-09-27] VITALS: Ht 182 cm; Wt 104.2 kg
--- NOTE | 2020-09-27 16:50 | ED General ---
General Stated Complaint: AMS, COUGH Source of Information: Patient, Family Exam Limitations: No Limitations History of Present Illness Date Seen by Provider: Sep 27, 2020 Time Seen by Provider: 16:46 Initial Comments To ER by family with reports of altered mental status and cough. He reports that he was out in [place] today to go [employer] hunting, then he "passed out" until he arrived in [place]. Son was driving. He voices no other complaints. Family who are spoken with over the telephone reports that he did not pass out, he is diabetic and he had some nausea and vomiting last night after arriving in [place]. He ate quite a bit and they attributed the nausea and vomiting to diabetic issues. Family is concerned he has a little bit of dementia, they states he did not pass out, he just doesn't remember. They also report that he has new urinary incontinence. He has a history of non-Hodgkin's lymphoma and stage IV renal failure. Timing/Duration: 1-2 Days Severity: Moderate Associated Systoms: Nausea/Vomiting Allergies and Home Medications Allergies Coded Allergies: No Known Drug Allergies (Verified , 10/26/07) Home Medications Alprazolam 0.5 Mg Tablet, 0.5 MG PO Q6H PRN for ANXIETY, (Reported) Amitriptyline Hcl 50 Mg Tablet, 50 MG PO HS, (Reported) Amoxicillin/Potassium Clav 1 Each Tablet, 1 EACH PO BID Prescribed by: OSKAR STATON on 12/26/17 1256 Atorvastatin Calcium 10 Mg Tablet, 10 MG PO HS, (Reported) Cholecalciferol (Vitamin D3) 1,000 Unit Tablet, 1,000 UNIT PO HS, (Reported) Diltiazem Hcl 90 Mg Tablet, 180 MG PO DAILY, (Reported) TAKES 2 (90MG) TABLETS Finasteride 5 Mg Tablet, 5 MG PO HS, (Reported) Gabapentin 300 Mg Cap, 600 MG PO BID, (Reported) TAKES 2 (300MG) CAPSULES Glimepiride 4 Mg Tablet, 8 MG PO DAILY, (Reported) TAKES 2 (4MG) TABLETS Hydrocodone Bit/Acetaminophen 1 Each Tablet, 1 TAB PO Q6H PRN for PAIN, (Reported) Insulin Aspart 100 Unit/1 Ml Insuln.pen, 11 UNITS SQ AC, (Reported) Insulin Glargine,Hum.rec.anlog 100 Unit/1 Ml Cartridge, 18 UNIT SQ HS, (Re ported) Levofloxacin 750 Mg Tablet, 750 MG PO DAILY Prescribed by: OSKAR HANSEN on 04/22/15 0942 Lisinopril 10 Mg Tablet, 10 MG PO DAILY, (Reported) Magnesium Oxide 400 Mg Tablet, 400 MG PO DAILY, (Reported) Omeprazole 20 Mg Capsule.dr, 20 MG PO BID, (Reported) Vitamin B Complex 1 Cap Capsule, 1 CAP PO HS, (Reported) Patient Home Medication List Home Medication List Reviewed: Yes Review of Systems Review of Systems Constitutional: see HPI EENTM: see HPI Respiratory: no symptoms reported Cardiovascular: no symptoms reported Gastrointestinal: nausea, vomiting Genitourinary: no symptoms reported Musculoskeletal: no symptoms reported Skin: no symptoms reported Psychiatric/Neurological: No Symptoms Reported Hematologic/Lymphatic: No Symptoms Reported Past Cqqwnbh-Zqzspc-Ktbkkt Hx Patient Social History 2nd Hand Smoke Exposure: Yes Immunizations Up To Date Tetanus Booster (TDap): Unknown PED Vaccines UTD: No Date of Pneumonia Vaccine: Nov 07, 2012 Date of Influenza Vaccine: Aug 07, 2014 Seasonal Allergies Seasonal Allergies: No Past Medical History Surgeries: Yes (PORT PLACEMENT, LYMPH NODE BIOPSY, ) Appendectomy Respiratory: No Cardiac: Yes Hypertension Neurological: No Reproductive Disorders: No Gastrointestinal: No Musculoskeletal: No Endocrine: Yes Diabetes, Insulin dep Cancer: Yes Lymphoma Psychosocial: Yes Sleep Difficulties, Anxiety Integumentary: No Blood Disorders: No Family Medical History Alcoholism G8 BROTHER Cataracts 19 FATHER 19 MOTHER Completed stroke 19 MOTHER FH: lung cancer 19 FATHER No Family History of: AIDS Abdominal aortic aneurysm Nicolás's disease Alzheimer's disease Aphasia Arthritis Asthma Cancer of mouth Cardiovascular disease Colon cancer Congenital disease Congenital heart disease Coronary thrombosis Cystic fibrosis Deafness or hearing loss Dementia Diabetes mellitus Drug abuse Dysphasia Fibrocystic disease of breast Gastroenteritis Glaucoma Headache disorder Hypercholesterolemia Hypertension Infertility Kidney disease Myocardial infarction Neoplasm Not obtainable due to adoption Osteoporosis Parkinson's disease Prostate cancer Psychosocial problem Respiratory disorder Seizure disorder Severe allergy Thyroid disease Tuberculosis Visual disorder Physical Exam Vital Signs Vital Signs - First Documented 09/27/20 16:30 Temp 37.7 Pulse 102 Resp 21 B/P (MAP) 161/94 (116) Pulse Ox 99 O2 Delivery Room Air Capillary Refill : Height, Weight, BMI Height: 5'11.00" Weight: 224lbs. 0oz. 101.048345xu; 30.5 BMI Method:Stated General Appearance: No Apparent Distress, WD/WN Eyes: Bilateral Eye Normal Inspection, Bilateral Eye PERRL, Bilateral Eye EOMI Neck: Full Range of Motion, Normal Inspection Respiratory: No Accessory Muscle Use, No Respiratory Distress Cardiovascular: Regular Rate, Rhythm, Normal Peripheral Pulses Gastrointestinal: Normal Bowel Sounds, Non Tender, Soft Extremity: Normal Range of Motion, Other (1+ pitting edema bilateral lower extremities) Neurologic/Psychiatric: Alert, Oriented x3 (he knows where he is at, alert and very talkative. No distress. Oxygen 97% room air. Does have a cough but he states it's a chronic cough. He complains of pain to both hands and both feet which is chronic from his diabetic neuropathy and unchanged in nature.) Skin: Normal Color, Warm/Dry Focused Exam Lactate Level 09/27/20 17:00: Lactic Acid Level 2.26*H Lactic Acid Level Laboratory Tests Test 09/27/20 17:00 Lactic Acid Level 2.26 MMOL/L (0.50-2.00) *H Progress/Results/Core Measures Suspected Sepsis SIRS Temperature: Pulse: Respiratory Rate: Laboratory Tests 09/27/20 17:00: White Blood Count 18.6H Blood Pressure / Mean: 09/27/20 17:00: Lactic Acid Level 2.26*H Laboratory Tests 09/27/20 17:00: Creatinine 3.01H, Platelet Count 212, Total Bilirubin 1.0 Results/Orders Lab Results Laboratory Tests Test 09/27/20 17:00 09/27/20 17:06 09/27/20 17:40 Range/Units White Blood Count 18.6 H 4.3-11.0 10^3/uL Red Blood Count 3.25 L 4.30-5.52 10^6/uL Hemoglobin 10.4 L 13.3-17.7 g/dL Hematocrit 31 L 40-54 % Mean Corpuscular Volume 95 80-99 fL Mean Corpuscular Hemoglobin 32 25-34 pg Mean Corpuscular Hemoglobin Concent 34 32-36 g/dL Red Cell Distribution Width 14.7 H 10.0-14.5 % Platelet Count 212 130-400 10^3/uL Mean Platelet Volume 10.3 9.0-12.2 fL Immature Granulocyte % (Auto) 1 % Neutrophils (%) (Auto) 85 H 42-75 % Lymphocytes (%) (Auto) 7 L 12-44 % Monocytes (%) (Auto) 7 0-12 % Eosinophils (%) (Auto) 0 0-10 % Basophils (%) (Auto) 0 0-10 % Neutrophils # (Auto) 15.9 H 1.8-7.8 10^3/uL Lymphocytes # (Auto) 1.3 1.0-4.0 10^3/uL Monocytes # (Auto) 1.3 H 0.0-1.0 10^3/uL Eosinophils # (Auto) 0.0 0.0-0.3 10^3/uL Basophils # (Auto) 0.1 0.0-0.1 10^3/uL Immature Granulocyte # (Auto) 0.2 H 0.0-0.1 10^3/uL Neutrophils % (Manual) 84 % Lymphocytes % (Manual) 10 % Monocytes % (Manual) 3 % Eosinophils % (Manual) 0 % Basophils % (Manual) 0 % Band Neutrophils 3 % Polychromasia SLIGHT Anisocytosis SLIGHT Sodium Level 127 L 135-145 MMOL/L Potassium Level 4.5 3.6-5.0 MMOL/L Chloride Level 92 L 98-107 MMOL/L Carbon Dioxide Level 20 L 21-32 MMOL/L Anion Gap 15 H 5-14 MMOL/L Blood Urea Nitrogen 33 H 7-18 MG/DL Creatinine 3.01 H 0.60-1.30 MG/DL Estimat Glomerular Filtration Rate 21 BUN/Creatinine Ratio 11 Glucose Level 441 *H 70-105 MG/DL Lactic Acid Level 2.26 *H 0.50-2.00 MMOL/L Calcium Level 8.4 L 8.5-10.1 MG/DL Corrected Calcium 8.6 8.5-10.1 MG/DL Total Bilirubin 1.0 0.1-1.0 MG/DL Aspartate Amino Transf (AST/SGOT) 61 H 5-34 U/L Alanine Aminotransferase (ALT/SGPT) 71 H 0-55 U/L Alkaline Phosphatase 94 40-136 U/L Troponin I 0.690 *H <0.028 NG/ML B-Type Natriuretic Peptide 291.3 H <100.0 PG/ML Total Protein 6.2 L 6.4-8.2 GM/DL Albumin 3.8 3.2-4.5 GM/DL Coronavirus 2019 ([facility]) Negative Negative Urine Color YELLOW Urine Clarity CLEAR Urine pH 6.0 5-9 Urine Specific Rice 1.020 1.016-1.022 Urine Protein 2+ H NEGATIVE Urine Glucose (UA) 3+ H NEGATIVE Urine Ketones NEGATIVE NEGATIVE Urine Nitrite NEGATIVE NEGATIVE Urine Bilirubin NEGATIVE NEGATIVE Urine Urobilinogen 0.2 < = 1.0 MG/DL Urine Leukocyte Esterase NEGATIVE NEGATIVE Urine RBC (Auto) TRACE-L NEGATIVE Urine RBC NONE /HPF Urine WBC NONE /HPF Urine Crystals NONE /LPF Urine Bacteria NEGATIVE /HPF Urine Casts NONE /LPF Urine Mucus NEGATIVE /LPF Urine Culture Indicated NO My Orders Orders - OSKAR STATON APRN Ua Culture If Indicated (09/27/20 16:24) Cbc With Automated Diff (09/27/20 16:24) Comprehensive Metabolic Panel (09/27/20 16:24) Chest 1 View, Ap/Pa Only (09/27/20 16:24) Ct Head Wo (09/27/20 16:24) Covid 19 Inhouse Test (09/27/20 16:24) BNP (09/27/20 16:44) Troponin I (09/27/20 16:44) Ekg Tracing (09/27/20 16:44) Manual Differential (09/27/20 17:00) Blood Culture (09/27/20 17:20) Lactic Acid Analyzer (09/27/20 17:20) Influenza A And B Antigens (09/27/20 17:44) Ceftriaxone For Iv Use (Rocephin For I (09/27/20 18:00) Ns Iv 1000 Ml (Sodium Chloride 0.9%) (09/27/20 18:00) Insulin (Regular) Human (Novolin R (Per (09/27/20 18:00) Coronavirus Sars-Cov-2 So 2018 (09/27/20 18:03) Vital Signs/I&O 09/27/20 16:30 Temp 37.7 Pulse 102 Resp 21 B/P (MAP) 161/94 (116) Pulse Ox 99 O2 Delivery Room Air Capillary Refill : Diagnostic Imaging Diagonstic Imaging: Xray Plain Films/CT/US/NM/MRI: chest Comments NAME: JOSEFINA DAWSON [facility] REC#: [id number] PT STATUS: REG ER : 1945 PHYSICIAN: OSKAR STATON APRN ADMIT DATE: 09/27/20/ER Draft Date of Exam:09/27/20 CHEST 1 VIEW, AP/PA ONLY INDICATION: Person of interest for Covid. Shortness of breath, cough, confusion. EXAMINATION: Chest, 09/27/2020. FINDINGS: There are scattered patchy airspace opacities at the right lung base and right mid lung. Remaining lungs clear. No effusion. No pneumothorax. Heart and pulmonary vasculature are normal. IMPRESSION: Vague groundglass opacities in the right lung, as above, most consistent with infiltrate. Dictated on workstation # [id number] Dict: 09/27/20 1723 Trans: 09/27/20 1731 PJ [id number] Interpreted by: BERNABE BASS MD Electronically signed by: Departure Communication (Admissions) Time/Spoke to Admitting Phy: 18:[address] Butts. Will admit the patient. I have also spoken with Tahmina Stanfordsarah [phone] as point of contact for the family and updated her. Going to give 8 units of subcutaneous insulin here liter of LR, Rocephin. I will also use doxycycline for the community-acquired pneumonia protocol as he has no pre- existing known lung conditions and no recent antibiotic use. I will use dox ycycline instead of a azithromycin given the slightly prolonged QT interval on EKG. Impression Primary Impression: RML pneumonia Qualified Codes: J18.9 - Pneumonia, unspecified organism Additional Impressions: AMS (altered mental status) CKD (chronic kidney disease) Disposition: ADMITTED INPATIENT Condition: Stable Admissions Decision to Admit Reason: Admit from ER (General) Decision to Admit/Date: Sep 27, 2020 Time/Decision to Admit Time: 18:01 Departure-Patient Inst. Referrals: OSKAR HANSEN DO (PCP/Family) Primary Care Physician OSKAR STATON APRN Sep 27, 2020 16:49
[2020-09-27 17:15] LABS: BASOPHILS # (AUTO) 0.1 10^3/uL (0.0-0.1); BASOPHILS % (AUTO) 0 % (0-10); EOSINOPHILS % (AUTO) 0 % (0-10); HEMATOCRIT 31 % (40-54); HEMOGLOBIN 10.4 g/dL (13.3-17.7); LYMPHOCYTES # (AUTO) 1.3 10^3/uL (1.0-4.0); LYMPHOCYTES % (AUTO) 7 % (12-44); MEAN CORPUSCULAR HEMOGLOBIN 32 pg (25-34); MEAN CORPUSCULAR HGB CONC 34 g/dL (32-36); MEAN CORPUSCULAR VOLUME 95 fL (80-99); MEAN PLATELET VOLUME 10.3 fL (9.0-12.2); MONOCYTES # (AUTO) 1.3 10^3/uL (0.0-1.0); MONOCYTES % (AUTO) 7 % (0-12); NEUTROPHILS # (AUTO) 15.9 10^3/uL (1.8-7.8); NEUTROPHILS % (AUTO) 85 % (42-75); PLATELET COUNT 212 10^3/uL (130-400); WHITE BLOOD COUNT 18.6 10^3/uL (4.3-11.0)
[2020-09-27 17:26] LABS: ALBUMIN 3.8 GM/DL (3.2-4.5); POTASSIUM 4.5 MMOL/L (3.6-5.0)
[2020-09-27 17:27] LABS: CALCIUM 8.4 MG/DL (8.5-10.1)
--- NOTE | 2020-09-27 17:27 | Diagnostic Imaging Report ---
INDICATION: Person of interest for Covid. Patient with shortness of breath, cough, confusion. EXAMINATION: CT brain without contrast, 09/27/2020. FINDINGS: There is no hemorrhage or infarct. No mass, mass effect or midline shift. No hydrocephalus. Paranasal sinuses and mastoid air cells clear. IMPRESSION: No acute process. Dictated by: Dictated on workstation # [id number]
[2020-09-27 17:29] LABS: TOTAL PROTEIN 6.2 GM/DL (6.4-8.2)
--- NOTE | 2020-09-27 17:31 | Diagnostic Imaging Report ---
INDICATION: Person of interest for Covid. Shortness of breath, cough, confusion. EXAMINATION: Chest, 09/27/2020. FINDINGS: There are scattered patchy airspace opacities at the right lung base and right mid lung. Remaining lungs clear. No effusion. No pneumothorax. Heart and pulmonary vasculature are normal. IMPRESSION: Vague groundglass opacities in the right lung, as above, most consistent with infiltrate. Dictated by: Dictated on workstation # [id number]
[2020-09-27 17:32] LABS: CREATININE SERUM 3.01 MG/DL (0.60-1.30)
[2020-09-27 17:44] LABS: ANISOCYTOSIS SLIGHT; BAND NEUTROPHILS 3 %; BASOPHILS % (MANUAL) 0 %; EOSINOPHILS % (MANUAL) 0 %; LYMPHOCYTES % (MANUAL) 10 %; MONOCYTES % (MANUAL) 3 %; NEUTROPHILS % (MANUAL) 84 %; POLYCHROMASIA SLIGHT
[2020-09-27 17:47] LABS: BILIRUBIN,URINE NEGATIVE (NEGATIVE); CLARITY,URINE CLEAR; COLOR,URINE YELLOW; GLUCOSE, URINE (UA) 3+ (NEGATIVE); KETONES,URINE NEGATIVE (NEGATIVE); LEUKOCYTE ESTERASE ,URINE NEGATIVE (NEGATIVE); NITRITE,URINE NEGATIVE (NEGATIVE); PROTEIN,URINE 2+ (NEGATIVE)
[2020-09-27] MEDS ORDERED: cefTRIAXone FOR IV USE 1,000 MG in WATER (STERILE) FOR INJECTION 10 ML IV ONE (18:00)
[2020-09-27] MEDS ORDERED: NS IV 1000 ML 1,000 ML IV SCH (18:00)
[2020-09-27] MEDS ORDERED: inSUlin (REGULAR) HUMAN 1 UNIT/0.01 ML (CHARGE PER UNIT) SC ONE (18:00)
[2020-09-27 18:01] LABS: BACTERIA,URINE NEGATIVE /HPF
--- NOTE | 2020-09-27 18:12 | NUR ---
Yuridia PHILIP spke with patient's on the phone and notified her that patient will be admitted.
[2020-09-27] MEDS ORDERED: LACTATED RINGERS 1,000 ML IV ONE (19:12)
[2020-09-27] MEDS ORDERED: CLOPIDOGREL 75 MG (PLAVIX) TABLET ONE (19:14)
[2020-09-27] MEDS ORDERED: ASPIRIN 81 MG CHEW (CHILDREN'S ASA) ONE (19:14)
--- NOTE | 2020-09-27 20:00 | NUR ---
THIS RN SPOKE WITH PT AND UPDATED HER ON PT CONDITION AND GAVE PASSWORD WITH PT PERMISSION.
[2020-09-27] MEDS ORDERED: ONDANSETRON 4 MG/2 ML (SDV) Z0FRAN IVP PRN (20:15)
[2020-09-27] MEDS ORDERED: ASPIRIN 81 MG CHEW (CHILDREN'S ASA) PO ONE (20:15)
[2020-09-27] MEDS ORDERED: CLOPIDOGREL 300 MG (PLAVIX) TABLET PO ONE (20:15)
[2020-09-27] MEDS ORDERED: ACETAMINOPHEN 325 MG TABLET PO PRN (20:15)
[2020-09-27] MEDS: LACTATED RINGERS 1,000 ML IV SCH (20:23)
[2020-09-27] MEDS ORDERED: inSUlin ASPART (NovoLOG) 1 UNIT/0.01 ML (CHARGE PER UNIT) ONE (20:28)
[2020-09-27] MEDS: inSUlin ASPART (NovoLOG) 1 UNIT/0.01 ML (CHARGE PER UNIT) SC SCH (20:30)
[2020-09-27] MEDS ORDERED: ONDANSETRON 4 MG/2 ML (SDV) Z0FRAN ONE (20:32)
[2020-09-27] MEDS ORDERED: RT-ALBUTEROL INHALER HFA (VENTOLIN HFA) 18 GM IH PRN (21:00)
[2020-09-27] MEDS: CEFEPIME 1,000 MG/SWFI 10 ML IV PUSH IV SCH ×2 (21:02)
[2020-09-28] VITALS (8 sets, daily range): BP systolic 134–182; BP diastolic 68–100
[2020-09-28] MEDS: LACTATED RINGERS 1,000 ML IV SCH ×3 (01:22→18:42)
[2020-09-28] MEDS: inSUlin ASPART (NovoLOG) 1 UNIT/0.01 ML (CHARGE PER UNIT) SC SCH ×4 (05:37→20:11)
[2020-09-28 06:40] LABS: BASOPHILS % (AUTO) 0 % (0-10); EOSINOPHILS # (AUTO) 0.2 10^3/uL (0.0-0.3); EOSINOPHILS % (AUTO) 2 % (0-10); HEMATOCRIT 30 % (40-54); LYMPHOCYTES # (AUTO) 1.2 10^3/uL (1.0-4.0); LYMPHOCYTES % (AUTO) 12 % (12-44); MEAN CORPUSCULAR HEMOGLOBIN 32 pg (25-34); MEAN CORPUSCULAR HGB CONC 33 g/dL (32-36); MEAN CORPUSCULAR VOLUME 97 fL (80-99); MEAN PLATELET VOLUME 10.3 fL (9.0-12.2); MONOCYTES # (AUTO) 0.7 10^3/uL (0.0-1.0); MONOCYTES % (AUTO) 7 % (0-12); NEUTROPHILS # (AUTO) 7.6 10^3/uL (1.8-7.8); NEUTROPHILS % (AUTO) 78 % (42-75); PLATELET COUNT 179 10^3/uL (130-400); WHITE BLOOD COUNT 9.7 10^3/uL (4.3-11.0)
[2020-09-28 06:54] LABS: ALBUMIN 3.5 GM/DL (3.2-4.5)
[2020-09-28 06:55] LABS: POTASSIUM 3.7 MMOL/L (3.6-5.0)
[2020-09-28 06:56] LABS: CALCIUM 8.5 MG/DL (8.5-10.1)
[2020-09-28 06:57] LABS: TOTAL PROTEIN 5.9 GM/DL (6.4-8.2)
[2020-09-28 06:59] LABS: BILIRUBIN,TOTAL 0.8 MG/DL (0.1-1.0)
[2020-09-28 07:01] LABS: CREATININE SERUM 2.5 MG/DL (0.60-1.30)
[2020-09-28] MEDS ORDERED: FLU QUAD HIGH DOSE 240 MCG/0.7 ML 2020-21 (FLUZONE) IM ONE (07:30)
[2020-09-28] MEDS: CEFEPIME 1,000 MG/SWFI 10 ML IV PUSH IV SCH ×4 (08:12→20:12)
[2020-09-28] MEDS ORDERED: ENOXAPARIN 30 MG/0.3 ML (LOVENOX) SYR SC SCH (09:00)
--- NOTE | 2020-09-28 09:46 | History & Physical-Hospitalist ---
History of Present Illness HPI/Chief Complaint Pt is a 74yoCM with a PMH of CKD Stage 4, dementia, HTN, NIDDMII who presented to the ER due to confusion. He is only able to give me some history and most other history is obtained from the . He apparently went with his son to go on a pheasant hunting trip and on the way out there because more confuysed and was claling the people he was with by the wrong name. The patient told the ER that he "passed out" but his family confirms that he did not lose consciousness. states that he was getting angry and more confused lately but that it was worse the past couple of days. His states that he will throw things at times and has been peeing on things and himself. He was found to have a RML pna on presentation and was admitted for IV abx. This morning he states he is feeling better but did vomit. He denies nausea though. Source: patient Date Seen 09/28/20 Time Seen by a Provider: 09:38 Attending Physician Duane Crocker MD PCP Fox De Jesus DO Referring Physician Date of Admission Sep 27, 2020 at 17:57 Home Medications & Allergies Home Medications Reviewed patient Home Medication Reconciliation performed by pharmacy medication reconciliations vending machine technician and/or nursing. Patients Allergies have been reviewed. Allergies Allergies Coded Allergies No Known Drug Allergies (Gptydemf20/20/07) Past Pqexwkd-Cjyjck-Eiimwt Hx Past Med/Social Hx: Reviewed Nursing Past Med/Soc Hx Patient Social History Marrital Status: Alcohol Use: Denies Use Recreational Drug Use: No Smoking Status: Former Smoker Type Used: Cigarettes 2nd Hand Smoke Exposure: Yes Recent Foreign Travel: No Contact w/other who traveled: No Recent Infectious Disease Expo: No Immunizations Up To Date Tetanus Booster (TDap): Unknown Pediatric: No Date of Pneumonia Vaccine: Nov 07, 2012 Date of Influenza Vaccine: Aug 07, 2014 Seasonal Allergies Seasonal Allergies: No Past Medical History Surgeries: Appendectomy Cardiac: Hypertension Reproductive: No Endocrine: Diabetes, Insulin dep Cancer: Lymphoma Did You Recieve Any Treatments: Yes What Type of Treatment Did You: Chemotherapy Psychosocial: Sleep Difficulties, Anxiety History of Blood Disorders: No Family History Alcoholism G8 BROTHER Cataracts 19 FATHER 19 MOTHER Completed stroke 19 MOTHER FH: lung cancer 19 FATHER No Family History of: AIDS Abdominal aortic aneurysm [place]allen's disease Alzheimer's disease Aphasia Arthritis Asthma Cancer of mouth Cardiovascular disease Colon cancer Congenital disease Congenital heart disease Coronary thrombosis Cystic fibrosis Deafness or hearing loss Dementia Diabetes mellitus Drug abuse Dysphasia Fibrocystic disease of breast Gastroenteritis Glaucoma Headache disorder Hypercholesterolemia Hypertension Infertility Kidney disease Myocardial infarction Neoplasm Not obtainable due to adoption Osteoporosis Parkinson's disease Prostate cancer Psychosocial problem Respiratory disorder Seizure disorder Severe allergy Thyroid disease Tuberculosis Visual disorder Review of Systems ROS-Unable to Obtain: confused about what brought him here Constitutional: see HPI Physical Exam Physical Exam Vital Signs Vital Signs - First Documented 09/27/20 09/27/20 16:30 20:37 Temp 37.7 Pulse 102 Resp 21 B/P (MAP) 161/94 (116) Pulse Ox 99 O2 Delivery Room Air FiO2 21 Capillary Refill : Less Than 3 Seconds Height, Weight, BMI Height: 5'11.00" Weight: 224lbs. 0oz. 101.808278bj; 31.48 BMI Method:Stated General Appearance: No Apparent Distress, Chronically ill HEENT: PERRL/EOMI, Moist Mucous Membranes; No Scleral Icterus (L), No Scleral Icterus (R) Neck: Normal Inspection, Supple Respiratory: Lungs Clear, No Accessory Muscle Use, No Respiratory Distress; No Crackles, No Rhonci, No Wheezing Cardiovascular: Regular Rate, Rhythm, No JVD, No Murmur Gastrointestinal: Normal Bowel Sounds, Non Tender, Soft Extremity: Normal Capillary Refill, No Calf Tenderness, No Pedal Edema Neurologic/Psychiatric: Alert, Normal Mood/Affect, Other (oriented to person and place) Skin: Normal Color, Warm/Dry Results Results/Procedures Labs Laboratory Tests 09/27/20 17:00 09/28/20 06:30 Patient resulted labs reviewed. Imaging: Reviewed Imaging Report Imaging [facility], [place] NAME: JOSEFINA DAWSON [facility] REC#: [id number] PT STATUS: REG ER : 1945 PHYSICIAN: OSKAR STATON APRN ADMIT DATE: 09/27/20/ER Signed Date of Exam:09/27/20 CT HEAD WO INDICATION: Person of interest for Covid. Patient with shortness of breath, cough, confusion. EXAMINATION: CT brain without contrast, 09/27/2020. FINDINGS: There is no hemorrhage or infarct. No mass, mass effect or midline shift. No hydrocephalus. Paranasal sinuses and mastoid air cells clear. IMPRESSION: No acute process. Dictated by: Dictated on workstation # [id number] Dict: 09/27/201720 Trans: 09/27/201726 [facility] [phone] Interpreted by: BERNABE BASS MD Electronically signed by: BERNABE BASS MD 09/27/201726 [facility] [place] NAME: JOSEFINA DAWSON [facility] REC#: [id number] PT STATUS: ADM IN : 1945 PHYSICIAN: SOKAR STATON APRN ADMIT DATE: 09/27/20/[facility] Signed Date of Exam:09/27/20 CHEST 1 VIEW, AP/PA ONLY INDICATION: Person of interest for Covid. Shortness of breath, cough, confusion. EXAMINATION: Chest, 09/27/2020. FINDINGS: There are scattered patchy airspace opacities at the right lung base and right mid lung. Remaining lungs clear. No effusion. No pneumothorax. Heart and pulmonary vasculature are normal. IMPRESSION: Vague groundglass opacities in the right lung, as above, most consistent with infiltrate. Dictated by: Dictated on workstation # [id number] Dict: 09/27/201722 Trans: 09/27/201933 [facility] [id number] Interpreted by: BERNABE BASS MD Electronically signed by: BERNABE BASS MD 09/27/201933 Assessment/Plan Admission Diagnosis Severe Sepsis Admission Status: Inpatient Order (span 2 midnights) Reason for Inpatient Admission: see below Assessment and Plan Severe Sepsis RML PNA Continue IV abx Await cultures Lactic acid normalized Leukocytosis improved Dementia May need [facility] admission given behaviors at home Speech consult for tomorrow for a MMSE CT Head negative CKD Stage 4 Creatinine likely at baseline, trend NSTEMI Cardiology consulted, appreciate recs trending down NIDDMII Sliding scale insulin HTN Bp running in the 140-150s Will add hydralzine prn and monitor Was on cardizem but hasn't filled it since March it appears DVT ppx: Lovenox Diagnosis/Problems Diagnosis/Problems (1) Severe sepsis Status: Acute (2) RML pneumonia Status: Acute Qualifiers: Pneumonia type: due to unspecified organism Qualified Codes: J18.9 - Pneumonia, unspecified organism (3) Hypertension Status: Chronic Qualifiers: Hypertension type: essential hypertension Qualified Codes: I10 - Essential (primary) hypertension (4) Dementia Qualifiers: Dementia type: unspecified type Dementia behavioral disturbance: without behavioral disturbance Qualified Codes: F03.90 - Unspecified dementia without behavioral disturbance (5) Non-insulin dependent type 2 diabetes mellitus Status: Chronic (6) NSTEMI (non-ST elevated myocardial infarction) Status: Acute (7) Person under investigation for severe acute respiratory syndrome coronavirus 2 (SARS-CoV-2) infection Status: Acute (8) CKD (chronic kidney disease) Status: Acute Qualifiers: Chronic kidney disease stage: stage 4 (severe) Qualified Codes: N18.4 - Chronic kidney disease, stage 4 (severe) Clinical Quality Measures DVT/VTE Risk/Contraindication: Risk Factor Score Per Nursin RFS Level Per Nursing on Admit: 4+=Very High DUANE CROCKER MD Sep 28, 2020 09:46
[2020-09-28] MEDS ORDERED: HYDROcodone/APAP 10 MG/325 MG (LORTAB) TAB PO PRN (15:00)
[2020-09-28] MEDS ORDERED: hydrALAZINE (APESOLINE) 20 MG/ML VIAL IV PRN (15:00)
[2020-09-28] MEDS: RT-ALBUTEROL/IPRATROPIUM 3 ML (DUONEB) VIAL INH PRN (16:40)
[2020-09-28] MEDS ORDERED: HALOPERIDOL 5 MG/ML (HALDOL) VIAL ONE (19:33)
[2020-09-28] MEDS: HALOPERIDOL 5 MG/ML (HALDOL) VIAL IM PRN (19:40)
[2020-09-28] MEDS: AMITRIPTYLINE 50 MG (ELAVIL) TAB PO SCH (20:11)
[2020-09-28] MEDS: ALPRAZolam 0.5 MG (XANAX) TAB PO PRN (20:33)
--- NOTE | 2020-09-28 20:44 | NUR ---
144 - Upon leaving room this RN noticed a pill in the cup mccauley of the patient side table. When asked about the pill the patient informed the RN that it was his hydrocodone. States that he has asked 4 different nurses and no one has brought him anything for pain and so he decided to get his own. To this RNs knowledge the patient had not mentioned being in pain. Medication was removed from room and counted per protocol. There was a bottle of hydrocodone and a bottle of alprazolam. Also noted at this time patient seems to be slurring words. 1914 - Patient up out of bed banging repeatedly on room door. Upon entering room Patient has removed all of monitor equipment, taken out his port access, walking around naked, covered in blood and being belligerent. Patient is told to sit down and when asked why he is currently behaving this was states "the pain is so bad I can't stand it, I need my damn medicine". Patient is refiring to his hydrocodone. Patient begins screaming at this RN and KIET Gaviria untill he is informed that this nurse has brought his hydrocodone. Patient is cleaned up and port reaccessed. Patient complains of throbbing in hands and feet. Dr Crocker is notified and orders received. 2044 - Patient is once again up and "going to leave". Patients has been notified of desire to leave AMA and the has indicated she will not be coming to pick him up. Patient is again belligerent and has pulled out port access. Dr Crocker is notified orders are received. Port is reaccessed. Upon discussing these incidences with patient, patient seems to be unaware of how angry he becomes.
[2020-09-28] MEDS ORDERED: LORazepam INJ 2 MG/ML (ATIVAN) VIAL ONE (20:56)
[2020-09-28] MEDS ORDERED: LORazepam INJ 2 MG/ML (ATIVAN) VIAL IVP PRN (21:00)
[2020-09-28] MEDS ORDERED: DexMEDEtomidine PRE MIX 100 ML IV ONE (21:13)
[2020-09-28] MEDS: DexMEDEtomidine PRE MIX 100 ML IV SCH (21:28)
[2020-09-28] MEDS: risperiDONE 0.25 MG (RisperDAL) TAB PO SCH (21:29)
[2020-09-29] VITALS (7 sets, daily range): BP systolic 106–214; BP diastolic 45–129
--- NOTE | 2020-09-29 | NUR ---
PT HAS SET OFF BED ALARM MULTIPLE TIMES GETTING UP TO USE URINAL. THERAPEUTIC COMMUNICATION ABOUT THE IMPORTANCE OF CALLING FOR HELP WITH CALL LIGHT TO USE URINAL HAS BEEN ATTEMPTED EVERY TIME BED ALARM SOUNDS AND THIS RN IS IN WITH PT THIS RN AT BEDSIDE EVERY TIME BED ALARM SOUNDS. WHEN PT VOIDS, 50-100 ML OF URINE IS VOIDED EACH TIME. THIS RN PLACED 18 FR WILLIS CATHETER D/T PT BECOMING INCREASINGLY AGITATED EACH TIME HE STRUGGLES TO ATTEMPT TO VOID.
--- NOTE | 2020-09-29 00:38 | NUR ---
PT BED ALARM WENT OFF AT THIS TIME. WHEN THIS RN WENT INTO ROOM PT STATED "GET THIS DAMN CATHETER OUT OF ME OR ILL RIP IT OUT MYSELF!" THIS RN EDUCATED PT ON RISK FOR INFECTION AFTER JUST PLACING CATHETER AND IMPORTANCE OF NEEDING IT TO MONITOR HIS URINE OUTPUT. PT STATED "I DONT GIVE A DAMN. TAKE IT OUT NOW!!' WILLIS REMOVED AT THIS TIME. PT EDUCATED ON IMPORTANCE OF USING CALL LIGHT BEFORE TRYING TO GET OUT OF BED.
[2020-09-29] MEDS ORDERED: RT-ALBUTEROL/IPRATROPIUM 3 ML (DUONEB) VIAL ONE (01:24)
[2020-09-29] MEDS: LACTATED RINGERS 1,000 ML IV SCH ×2 (02:19→11:53)
[2020-09-29] MEDS: DexMEDEtomidine PRE MIX 100 ML IV SCH ×3 (02:19→22:48)
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
--- NOTE | 2020-09-29 04:00 | NUR ---
PT BED ALARM SOUNDED AT THIS TIME. WHEN ASSESSED, PT HAD PULLED OFF ALL MONITORING DEVICES, WAS GETTING OUT OF BED AND PULLED OUT PORT ACCESS. WHEN ASKED WHAT THE PT WAS TRYING TO DO, PT STATED "I JUST WOKE UP CONFUSED AND DIDN'T WANT THESE CORDS ON ME ANYMORE. I WANT TO GO HOME" WHEN ASKED PT WAS NOT ABLE TO TELL THIS RN WHERE HE WAS, HOWEVER ANSWERED ALL OTHER ORIENTATION QUESTIONS APPROPRIATELY. PT RE-ORIENTED AT THIS TIME. PORT WAS RE-ACCESSED BY CEDRICK FRITZ. MONITORS RE-ATTACHED AT THIS TIME.
[2020-09-29 04:12] LABS: HEMOGLOBIN 9.5 g/dL (13.3-17.7); MEAN PLATELET VOLUME 10.4 fL (9.0-12.2); WHITE BLOOD COUNT 8.5 10^3/uL (4.3-11.0)
[2020-09-29 04:20] LABS: CALCIUM 8.2 MG/DL (8.5-10.1)
[2020-09-29 04:25] LABS: CREATININE SERUM 2.36 MG/DL (0.60-1.30)
[2020-09-29] MEDS: inSUlin ASPART (NovoLOG) 1 UNIT/0.01 ML (CHARGE PER UNIT) SC SCH ×4 (05:53→20:43)
[2020-09-29] MEDS: PANTOPRAZOLE 40 MG (PROTONIX) TAB PO SCH (08:39)
[2020-09-29] MEDS: FINASTERIDE (PROSCAR) 5 MG TAB PO SCH (08:39)
[2020-09-29] MEDS: risperiDONE 0.25 MG (RisperDAL) TAB PO SCH ×2 (08:39→20:37)
[2020-09-29] MEDS: CEFEPIME 1,000 MG/SWFI 10 ML IV PUSH IV SCH ×4 (08:40→20:31)
[2020-09-29] MEDS: ENOXAPARIN 40 MG/0.4 ML (LOVENOX) SYR SC SCH (08:40)
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
--- NOTE | 2020-09-29 10:37 | Physical Therapy Evaluation ---
PT Evaluation-General Medical Diagnosis Admission Date Sep 27, 2020 at 17:57 Medical Diagnosis: pneumonia/AMS/CKD Onset Date: Sep 27, 2020 Therapy Diagnosis Therapy Diagnosis: generalized weakness/debility Height/Weight Height (Feet): 5 Height (Inches): 11.00 Weight (Pounds): 224 Weight (Ounces): 0 Precautions Precautions/Isolations: Fall Prevention, Standard Precautions, Pressure Ulcer Referral Physician: Luann Reason for Referral: Evaluation/Treatment Medical History Pertinent Medical History: DM, HTN, Lymphoma, Renal Insufficiency Additional Medical History possible dementia and hydrocodone use Current History ER secondary to AMS per family Reviewed History: Yes Social History Home: Single Level Current Living Status: Spouse Prior Prior Level of Function SCALE: Activities may be completed with or without assistive devices. 9-Ulwqheecks-kfthiwi completes the activity by him/herself with no assistance from a helper. 5-Set-up or Clean-up Assistance-helper sets up or cleans up; patient completes activity. [place] assists only prior to or following the activity. 4-Supervision or Touching Assistance-helper provides verbal cues and/or touching/steadying and/or contact guard assistance as patient completes activity. Assistance may be provided throughout the activity or intermittently. 3-Partial/Moderate Assistance-helper does LESS THAN HALF the effort. [place] lifts, holds or supports trunk or limbs, but provides less than half the effort. 2-Substantial/Maximal Assistance-helper does MORE THAN HALF the effort. [place] lifts or holds trunk or limbs and provides more than half the effort. 8-Cmqwjcqyj-dhkhpt does ALL the effort. Patient does none of the effort to complete the activity. Or, the assistance of 2 or more helpers is required for the patient to complete the activity. If activity was not attempted, code reason: 7-Patient Refused. 9-Not Applicable-not attempted and the patient did not perform the activity before the current illness, exacerbation or injury. 10-Not Attempted due to Environmental Limitations-(lack of equipment, weather restraints, etc.). 88-Not Attempted due to Medical Conditions or Safety Concerns. Bed Mobility: 6 Transfers (B,C,W/C): 6 Gait: 6 Stairs: 6 Indoor Mobility (Ambulation): Independent Stairs: Independent Prior Devices Use: None PT Evaluation-Current Subjective Patient is in bed and agrees to PT. Noted slurred speech. RN is aware. Objective Patient Orientation: Person port ROM/Strength ROM Lower Extremities bilateral LE WFL Strength Lower Extremities 4-/5 grossly bilateral LE Integumentary/Posture Integumentary refer to nursing noted Bladder Incontinence: Yes Posture WFL Neuromuscular (Tone, Coordination, Reflexes) diminished coordination Sensory Vision: Wears Glasses Hearing: Functional Sensation Right Lower Extremit: Impaired Sensation Left Lower Extremity: Impaired Transfers Roll Left to Right (QC): 5 Sit to Lying (QC): 5 Lying to Sitting/Side of Bed(Q: 5 Sit to Stand (QC): 4 Chair/Ocu-in-Eldgq Xfer(QC): 4 Toilet Transfer (QC): 4 Gait Does the Patient Walk?: Yes Mode of Locomotion: Walk Anticipated Mode of Locomotion: Walk Walk 10 feet (QC): 4 Walk 50 ft with 2 Turns(QC): 4 Walk 150 ft (QC): 4 Distance: 300' Gait Assistive Device: None Comments/Gait Description CGA for safety Wheelchair Training Does the Pt Use a Wheelchair?: No Balance Sitting Static: Normal Sitting Dynamic: Normal Standing Static: Fair Standing Dynamic: Fair Picking up an Object (QC): 6 Assessment/Needs 74 y.o. male, will benefit from skilled PT to address functional strength and mobility to improve current LOF to safely return to home at maximum LOF. Rehab Potential: Fair PT Group Home Goals Reaming Machine Operator For Plastic Goals PT Group Home Goals Time Frame: Oct 11, 2020 Roll Left & Right (QC): 6 Sit to Lying (QC): 6 Lying-Sitting on Side/Bed(QC): 6 Sit to Stand (QC): 6 Chair/Cpc-wu-Sgrep Xfer(QC): 6 Toilet Transfer (QC): 6 Does the Patient Walk: Yes Walk 10 feet (QC): 6 Walk 50ft with 2 Turns (QC): 6 Walk 150 ft (QC): 6 PT Plan Problem List Problem List: Activity Tolerance, Safety, Balance, Gait Treatment/Plan Treatment Plan: Continue Plan of Care Treatment Plan: Bed Mobility, Education, Functional Activity Alfonzo, Functional Strength, Gait, Safety, Therapeutic Exercise, Transfers Treatment Duration: Oct 11, 2020 Frequency: 6 times per week Estimated Hrs Per Day: .25 hour per day Patient and/or Family Agrees t: Yes Discharge Recommendations Therapy Discharge Recommendati: Home & Family Time/GCodes Time In: 950 Time Out: 1013 Total Billed Treatment Time: 23 Total Billed Treatment 1 visit EVModC 23 min ARNAV BEARDEN PT Sep 29, 2020 10:37
[2020-09-29] MEDS ORDERED: REGADENOSON 0.4 MG/5 ML SYR (LEXISCAN) IV ONE (11:30)
--- NOTE | 2020-09-29 11:37 | Progress Note - Hospitalist ---
Subjective HPI/CC On Admission Date Seen by Provider: Sep 29, 2020 Time Seen by Provider: 08:50 Pt is a 74yoCM with a PMH of CKD Stage 4, dementia, HTN, NIDDMII who presented to the ER due to confusion. He is only able to give me some history and most other history is obtained from the . He apparently went with his son to go on a pheasant hunting trip and on the way out there because more confuysed and was claling the people he was with by the wrong name. The patient told the ER that he "passed out" but his family confirms that he did not lose consciousness. states that he was getting angry and more confused lately but that it was worse the past couple of days. His states that he will throw things at times and has been peeing on things and himself. He was found to have a RML pna on presentation and was admitted for IV abx. This morning he states he is feeling better but did vomit. He denies nausea though. Subjective/Events-last exam he denies any complaints or concerns. He denies any shortness of breath. He denies any fevers. He has not been hungry and has not been eating and drinking much. He denies any chest pain. Focused Exam Lactate Level 09/27/20 17:00: Lactic Acid Level 2.26*H 09/27/20 19:19: Lactic Acid Level 2.54*H 09/27/20 22:25: Lactic Acid Level 1.48 Objective Exam Vital Signs Vital Signs Date Time Temp Pulse Resp B/P (MAP) Pulse Ox O2 Delivery O2 Flow Rate FiO2 09/29/20 08:00 93 Room Air 09/29/20 07:30 35.9 90 24 139/102 (114) 09/27/20 20:37 21 Capillary Refill : Less Than 3 Seconds General Appearance: No Apparent Distress, Obese Respiratory: Lungs Clear, Normal Breath Sounds, No Respiratory Distress Cardiovascular: Regular Rate, Rhythm, No Edema, No Murmur Gastrointestinal: Normal Bowel Sounds, Non Tender, Soft Extremity: Normal Inspection, Non Tender, No Pedal Edema Neurologic/Psychiatric: Alert, Oriented x3, No Motor/Sensory Deficits, Normal Mood/Affect Skin: Normal Color, Warm/Dry Results/Procedures Lab Laboratory Tests 09/29/20 03:56 Patient resulted labs reviewed. Imaging: Reviewed Imaging Report Assessment/Plan Assessment and Plan Assess & Plan/Chief Complaint Severe Sepsis RML PNA Continue IV abx Blood cultures with no growth 3/4, 1/4 likely contaminant Possible dementia May need [facility]BU admission given behaviors at home Speech consult for tomorrow for a MMSE CT Head negative Possibly due to opioid overuse ARIEL on CKD 4 Creatinine likely at baseline, trend Decrease fluids NSTEMI Cardiology consulted, appreciate recs Planning for stress test T2DM SSI HTN Bp running in the 140-150s Hydralzine as needed DVT ppx: Lovenox Diagnosis/Problems Diagnosis/Problems (1) Severe sepsis Status: Acute (2) Right lower lobe pneumonia Status: Acute (3) NSTEMI (non-ST elevated myocardial infarction) Status: Acute (4) CKD (chronic kidney disease) Status: Acute Qualifiers: Chronic kidney disease stage: stage 4 (severe) Qualified Codes: N18.4 - Chronic kidney disease, stage 4 (severe) Clinical Quality Measures DVT/VTE Risk/Contraindication: Risk Factor Score Per Nursin RFS Level Per Nursing on Admit: 4+=Very High BARBARA CABA MD Sep 29, 2020 11:36
--- NOTE | 2020-09-29 12:23 | Consultation-Cardiology ---
HPI-Cardiology Cardiology Consultation: Date of Consultation 09/29/20 Date of Admission Attending Physician Emili Crocker MD Admitting Physician Fox De Jesus DO Consulting Physician Cody MCDOWELL MD HPI: Time Seen by a Provider: 11:00 Chief Complaint: confusion this is a 74-year-old gentleman with history of stage IV chronic kidney disease, dementia, diabetes, hypertension. He presented to the ER with complains of confusion. He was diagnosed with right middle lobe pneumonia and started on IV antibiotics. He denies any chest pain or shortness of breath. He was found to have borderline positive troponin. He denies active smoking. Family history is unremarkable. Review of Systems-Cardiology Review of Systems Constitutional: As described under HPI; No As described under HPI, No no symptoms reported, No chills, No fever, No lightheadedness Eyes: No As described under HPI, No no symptoms reported, No blindness, No blurred vision, No contact lenses, No drainage, No decreased acuity, No foreign body sensation, No pain, No vision change Ears/Nose/Throat: No As described under HPI, No no symptoms reported, No chronic hearing loss, No ear discharge, No ear pain, No nasal drainage, No ulcerations Respiratory: No no symptoms reported; As described under HPI; No As described under HPI, No cough, No orthopnea, No shortness of breath, No SOB with excertion Cardiovascular: No no symptoms reported; As described under HPI; No As described under HPI, No chest pain, No edema, No irregular heart rate, No lightheadedness, No palpitations Gastrointestinal: No no symptoms reported, No As described under HPI, No abdomen distended, No abdominal pain, No blood streaked bowels, No constipation, No diarrhea, No nausea, No vomiting, No stool coloration changes Genitourinary: No As described under HPI, No burning, No dysuria, No discharge, No frequency, No flank pain, No hematuria, No urgency Skin: No rash, No skin related problems, No ulcerations Psychiatric/Neurological: As described under HPI; No anxiety, No depression, No seizure, No focal weakness, No syncope Hematologic: No bleeding abnormalities IUK-Bdeoyh-Hftkgp Hx Patient Social History Marrital Status: Alcohol Use: Denies Use Recreational Drug Use: No Smoking Status: Former Smoker Former smoker/When Quit: Apr 21, 2003 Type Used: Cigarettes 2nd Hand Smoke Exposure: Yes Recent Foreign Travel: No Recent Infectious Disease Expo: No Hospitalization with Isolation: Denies Immunizations Up To Date Tetanus Booster (TDap): Unknown Date of Pneumonia Vaccine: Nov 07, 2012 Date of Influenza Vaccine: Aug 07, 2014 Past Medical History PMH As described under Assessment. Family Medical History Family History: Alcoholism G8 BROTHER Cataracts 19 FATHER 19 MOTHER Completed stroke 19 MOTHER FH: lung cancer 19 FATHER No Family History of: AIDS Abdominal aortic aneurysm Nicolás's disease Alzheimer's disease Aphasia Arthritis Asthma Cancer of mouth Cardiovascular disease Colon cancer Congenital disease Congenital heart disease Coronary thrombosis Cystic fibrosis Deafness or hearing loss Dementia Diabetes mellitus Drug abuse Dysphasia Fibrocystic disease of breast Gastroenteritis Glaucoma Headache disorder Hypercholesterolemia Hypertension Infertility Kidney disease Myocardial infarction Neoplasm Not obtainable due to adoption Osteoporosis Parkinson's disease Prostate cancer Psychosocial problem Respiratory disorder Seizure disorder Severe allergy Thyroid disease Tuberculosis Visual disorder Allergies and Home Medications Allergies Coded Allergies: No Known Drug Allergies (Verified , 10/26/07) Home Medications Alprazolam 0.5 Mg Tablet, 0.5 MG PO Q6H PRN for ANXIETY, (Reported) Amitriptyline Hcl 50 Mg Tablet, 50 MG PO HS, (Reported) Amoxicillin/Potassium Clav 1 Each Tablet, 1 EACH PO BID Prescribed by: OSKAR STATON on 12/26/17 1256 Atorvastatin Calcium 10 Mg Tablet, 10 MG PO HS, (Reported) Cholecalciferol (Vitamin D3) 1,000 Unit Tablet, 1,000 UNIT PO HS, (Reported) Diltiazem Hcl 90 Mg Tablet, 180 MG PO DAILY, (Reported) TAKES 2 (90MG) TABLETS Finasteride 5 Mg Tablet, 5 MG PO HS, (Reported) Gabapentin 300 Mg Cap, 600 MG PO BID, (Reported) TAKES 2 (300MG) CAPSULES Glimepiride 4 Mg Tablet, 8 MG PO DAILY, (Reported) TAKES 2 (4MG) TABLETS Hydrocodone Bit/Acetaminophen 1 Each Tablet, 1 TAB PO Q6H PRN for PAIN, (Reported) Insulin Aspart 100 Unit/1 Ml Insuln.pen, 11 UNITS SQ AC, (Reported) Insulin Glargine,Hum.rec.anlog 100 Unit/1 Ml Cartridge, 18 UNIT SQ HS, ( Reported) Levofloxacin 750 Mg Tablet, 750 MG PO DAILY Prescribed by: FOX DE JESUS on 04/22/15 0942 Lisinopril 10 Mg Tablet, 10 MG PO DAILY, (Reported) Magnesium Oxide 400 Mg Tablet, 400 MG PO DAILY, (Reported) Omeprazole 20 Mg Capsule.dr, 20 MG PO BID, (Reported) Vitamin B Complex 1 Cap Capsule, 1 CAP PO HS, (Reported) Patient Home Medication List Home Medication List Reviewed: Yes Physical Exam-Cardiology Physical Exam Vital Signs/I&O 09/29/20 09/29/20 09/29/20 09/29/20 01:00 01:19 01:32 02:19 Temp 37.8 Pulse 98 20 74 B/P (MAP) 104/64 Pulse Ox 93 93 O2 Delivery Room Air 09/29/20 09/29/20 09/29/20 09/29/20 03:09 04:00 07:00 07:30 Temp 36.3 35.9 Pulse 87 90 90 Resp 24 24 B/P (MAP) 136/86 (103) 139/102 (114) Pulse Ox 96 94 95 O2 Delivery Room Air Room Air 09/29/20 09/29/20 09/29/20 09/29/20 08:00 08:00 11:54 11:59 Temp 37.0 Pulse 98 Resp 24 B/P (MAP) 214/129 (157) Pulse Ox 93 93 96 93 O2 Delivery Room Air Room Air Room Air Room Air 09/29/20 00:00 Intake Total 1400 ml Output Total 1300 ml Balance 100 ml Capillary Refill : Less Than 3 Seconds Constitutional: appears stated age, AAO x 3; No apparent distress; well- developed, well-nourished HEENT: PERRL; No discharge; hearing is well preserved, oral hygience is good; No ulceration, No xanthelasmas are seen Neck: No carotid bruit; carotid pulses are 2 + bilaterally Respiratory: chest is bilaterally symmetric, lungs clear to auscultation Cardiovascular: regular rate-rhythm, S1 and S2; No diastolic murmur, No systolic murmur Gastrointestinal: soft, audible bowel sounds; No spleenomegaly Rectal: deferred Extremities: normal range of motion, non-tender, normal inspection; No clubbing, No cyanosis; no lower extremity edema bilateral; No significant edema Neurologic/Psychiatric: no motor/sensory deficits, alert, normal mood/affect, oriented x 3, power is 5/5 both on sides Skin: No rash, No ulcerations Data Review Labs Laboratory Tests 09/28/20 13:31: Glucometer 227H 09/28/20 17:14: Glucometer 199H 09/28/20 19:43: Glucometer 265H 09/29/20 03:56: White Blood Count 8.5, Red Blood Count 2.99L, Hemoglobin 9.5L, Hematocrit 29L, Mean Corpuscular Volume 97, Mean Corpuscular Hemoglobin 32, Mean Corpuscular Hemoglobin Concent 33, Red Cell Distribution Width 14.6H, Platelet Count 167, Mean Platelet Volume 10.4, Sodium Level 137, Potassium Level 4.0, Chloride Level 101, Carbon Dioxide Level 23, Anion Gap 13, Blood Urea Nitrogen 27H, Creatinine 2.36H, Estimat Glomerular Filtration Rate 27, BUN/Creatinine Ratio 11, Glucose Level 279H, Calcium Level 8.2L 09/29/20 11:49: Glucometer 245H Microbiology 09/27/20 Influenza Types A,B Antigen ([facility]) - Final, Complete 09/27/20 Blood Culture - Preliminary, Resulted Staph, Coag Neg (BOLT THREADER) ECG Impression ECG Initial ECG Rhythm: Normal Sinus Comment right bundle-branch block. A/P-Cardiology Assessment/Admission Diagnosis confusion, Right middle lobe pneumonia, Positive troponin, Mildly elevated BNP, Acute on chronic kidney injury, Diabetes, Hypertension, Dementia Plan confusion, likely multifactorial. Defer to the primary team. Right middle lobe pneumonia,on IV antibiotics. Positive troponin,trending down; in a patient with chronic kidney disease. Patient denies any chest pain or shortness of breath. However he does have history of diabetes. will recommend nuclear stress testing. Mildly elevated BNP, no evidence of florid congestive heart failure. Will andres mmend an echocardiogram. Acute on chronic kidney injury,likely due to diabetes. Diabetes,defer to the primary team. Hypertension,stable. Dementia Dr. Cervantes to take over cardiology care tomorrow. Thank you for your consultation. Please call me if you have any questions. Jordyn Mcdowell MD, FACP, FACC, FSCAI, FHRS, CCDS Interventional Cardiology Cardiac Electrophysiology Vascular Medicine and Endovascular Interventions Clinical Quality Measures DVT/VTE Risk/Contraindication: Risk Factor Score Per Nursin RFS Level Per Nursing on Admit: 4+=Very High Cody MCDOWELL MD Sep 29, 2020 12:23
--- NOTE | 2020-09-29 12:24 | NUR ---
THIS NURSE NOTIFIED DR CABA PT IS C/O SOA. O2 SATURATIONS HAVE BEEN 96-97% ON RA. PT SOUNDS DIMINISHED AND WHEEZY. PT BP HAS ALSO BEEN 190-200/110-120 EVEN AFTER PRN HYDRALAZINE. ORDER GIVEN FOR BREATHING TX. WILL CONTINUE TO MONITOR.
--- NOTE | 2020-09-29 13:14 | Occupational Therapy Eval ---
OT Evaluation-General/PLF Medical Diagnosis Admission Date Sep 27, 2020 at 17:57 Medical Diagnosis: pneumonia/AMS/CKD Onset Date: Sep 27, 2020 Therapy Diagnosis Therapy Diagnosis: weakness, decreased ADL status Height/Weight Height (Feet): 5 Height (Inches): 11.00 Weight (Pounds): 224 Weight (Ounces): 0 Precautions Precautions/Isolations: Fall Prevention, Standard Precautions, Pressure Ulcer Referral Physician: Luann Referral Reason: Evaluation/Treatment Medical History Pertinent Medical History: DM, HTN, Lymphoma, Renal Insufficiency Current History ER due to confusion Social History Home: Single Level Current Living Status: Spouse ADL-Prior Level of Function SCALE: Activities may be completed with or without assistive devices. 7-Qyjfbxiije-becqjmv completes the activity by him/herself with no assistance from a helper. 5-Set-up or Clean-up Assistance-helper sets up or cleans up; patient completes activity. [place] assists only prior to or following the activity. 4-Supervision or Touching Assistance-helper provides verbal cues and/or touching/steadying and/or contact guard assistance as patient completes activity. Assistance may be provided throughout the activity or intermittently. 3-Partial/Moderate Assistance-helper does LESS THAN HALF the effort. [place] lifts, holds or supports trunk or limbs, but provides less than half the effort. 2-Substantial/Maximal Assistance-helper does MORE THAN HALF the effort. [place] lifts or holds trunk or limbs and provides more than half the effort. 6-Yilyxpehr-yjvxrh does ALL the effort. Patient does none of the effort to complete the activity. Or, the assistance of 2 or more helpers is required for the patient to complete the activity. If activity was not attempted, code reason: 7-Patient Refused. 9-Not Applicable-not attempted and the patient did not perform the activity before the current illness, exacerbation or injury. 10-Not Attempted due to Environmental Limitations-(lack of equipment, weather restraints, etc.). 88-Not Attempted due to Medical Conditions or Safety Concerns. ADL PLOF Comments Pt indicates he was independent with all ADLS and functional mobility at PLOF, no AE/AD. Pt indicates he has both a tub/shower and a walkin shower. Self Care: Independent Functional Cognition: Independent DME/Equipment: Shower, Tub/Shower OT Current Status Subjective Pt laying in bed at start of tx, agreeable to OT tx. Mental Status/Objective Patient Orientation: Person Attachments: IV Current Glasses/Contacts: Yes Hearing Aids: No Dentures/Partials: No Hand Dominance: Right Upper Extremity ROM WFL Upper Extremity Coordination WFL Upper Extremity Sensation WFL Upper Extremity Strength grossly 4/5 ADL-Treatment Eating (QC): 6 (Pt independent eating lunch) On/Off Footwear (QC): 4 (SBA, pt able to doff/don gripper socks seated EOB) Other Treatments OT educated pt on purpose and benefits of OT, he verbalized understanding. Pt provided information about PLOF and home set up, and participated in UE screen. Pt transferred supine to sit EOB with SBA where he completed footwear. He then stood up and took a side step up towards EOB with SBA, he sat back on the EOB and then transferred supine with SBA. OT positioned pt's lunch tray in front of him, and elevated HOB. Pt able to take bites of food independently. Post OT Tx, pt laying in bed with HOB elevated eating lunch, call light in reach and all needs met. Education OT Patient Education: Correct positioning, Energy conservation, Modified ADL techniques, Progress toward Goal/Update tx plan, Purpose of tx/functional activities, Rehab process, Safety issues Teaching Recipient: Patient Teaching Methods: Discussion Response to Teaching: Verbalize Understanding OT Aurist Goals Longterm Goals Time Frame: Oct 10, 2020 Eating (QC): 6 Oral Hygiene (QC): 6 Toileting Hygiene (QC): 6 Shower/Bathe Self (QC): 6 Upper Body Dressing (QC): 6 Lower Body Dressing (QC): 6 On/Off Footwear (QC): 6 Additional Goals: 1-Demonstrate ADL Tasks, 2-Verbalize Understanding, 3-ImproveStrength/Alfonzo 1=Demonstrate adherence to instructed precautions during ADL tasks. 2=Patient will verbalize/demonstrate understanding of assistive devices/modifications for ADL. 3=Patient will improve strength/tolerance for activity to enable patient to perform ADL's. OT Education/Plan Problem List/Assessment Assessment: Decreased Activ Tolerance, Decreased UE Strength, Impaired Funct Balance, Impaired I ADL's, Impaired Self-Care Skills Discharge Recommendations Plan/Recommendations: Continue POC Treatment Plan/Plan of Care Patient would benefit from OT for education, treatment and training to promote independence in ADL's, mobility, safety and/or upper extremity function for ADL's. Plan of Care: ADL Retraining, Functional Mobility, UE Funct Exercise/Act Treatment Duration: Oct 10, 2020 Frequency: 5 times per week Estimated Hrs Per Day: .25 hour per day Rehab Potential: Fair Time/GCodes Start Time: 11:45 Stop Time: 12:00 Total Time Billed (hr/min): 15 Billed Treatment Time 1, JAMAL MARTINES OT Sep 29, 2020 13:14
[2020-09-29] MEDS: ALPRAZolam 0.5 MG (XANAX) TAB PO PRN (14:10)
--- NOTE | 2020-09-29 14:53 | NUR ---
"RD ASSESSMENT PMHx: CKD(stage IV); dementia; HTN; DM; CA(lymphoma) PT INTERACTION: Pt was awake and pleasant during nutrition assessment. Note pt has dementia, per chart review. Pt states current appetite is not good. Note avg PO intake 63% x2meal, per chart review. Pt states following a regular diet at home, and has some issues with swallowing food. Pt states no recent issues with nausea, vomiting, constipation, or diarrhea, and that his last BM was 09/29. Note pt not currently on bowel regimen per chart review. Pt states unsure of recent wt changes. Note unable to determine recent wt hx, per chart review. Pt states he believes that his current DM management is pretty good. Note unable to determine recent HbA1c, per chart review. ABNORMAL NUTRITION-RELATED LAB VALUES LOW: Ca 8.2; HIGH: BUN 27; cr 2.36; glu 279 Est. kcal needs: 0295-6544 kcal | 15-20 kcal/kg Est. Pro needs: 83-104 g Pro | 0.8-1.0 g Pro/kg PES STATEMENT: Inadequate oral intake (NI-2.1) related to loss of appetite as evidenced by pt interview, and avg PO intake 63% x2meal. INTERVENTION: Continue with current diet order of CHO 60g/m 3snack diet. Pt may benefit from nutrition supplementation if PO intake declines. Did not offer diet education at this time, due to pt's dementia. May attempt when pt is more lucid prior to discharge. Will continue to follow and reassess as pt needs, intake, and status change. Ashish Jansen, MS RD LD"
--- NOTE | 2020-09-29 14:54 | ST Cognitive Linguistic Eval ---
Speech Evaluation-General Medical Diagnosis pneumonia/AMS/CKD Onset Date: Sep 27, 2020 Therapy Diagnosis Therapy Diagnosis: Cognitive-communication Referral Referring Physician: Dr. Crocker Medical History Pertinent Medical History: DM, Dementia, HTN, Lymphoma, Renal Insufficiency Reviewed History: Yes Social History Current Living Status: Spouse Speech PLF-Current Status Prior Level of Function Patient lived at home with his who reports the patient has been more confused the past couple of days. Subjective Patient was pleasant and cooperative with the cognitive assessment. Language Eval: Auditory Comprehends Simple Yes/No Ques: Functional Indent/Objects Multiple Lance: Functional Ident/Pics in Multiple Lance: Functional Follows 1-Step Commands: Mild Follows Complex Directions: Moderate Follows General Conversations: Mild Language Eval: Verbal Language Completes Spontaneous Greeting: Functional Produces Auto, Serial Info: Mild Imitates Simple Words/Phrases: Mild Word Finding: Mild Requests Basic Needs: Functional States Basic Personal Info: Mild Expresses Complex Ideas: Moderate Objective Cognitive Domain Attention: Mild Memory: Moderate Problem Solving: Moderate Executive Functions: Moderate Visuospatial Skills: WNL Composite Severity Rating: Moderate Objective Formal/Standardized Tests Mini Mental Status Examination Results 14/30, moderate range of deficit Oral Motor/Speech Production Within Normal Limits Impression Patient is a pleasant 74 y/o male who was admitted to the hospital with severe sepsis and AMS. The patient is reported by family to have become more confused over the past few days. The patient was given the MMSE with a score of 14/30 which is within the moderate deficit range of function. The patient is noted to have been confused and even combative while admitted to [facility]. The patient will receive ST services with focus on improving orientation and memory so that he may return home safer. Speech Short Term Goals Short Term Goals Short Term Goals 1) The patient will complete memory tasks with 75% or greater given minimal cues . 2) The patient will complete orientation asks with 75% or greater given minimal cues. 3) The patient will complete safety awareness tasks with 75% or greater given minimal cues. Speech Turbine Attendant Goals Turbine Attendant Goals The patient will improve cognitive-communication necessary for safety and daily living tasks with minimal assist. Speech-Plan Patient/Family Goals Patient/Family Goals: Patient plans on returning to his home where he lives with his . Treatment Plan Speech Therapy Treatment Plan: Continue Plan of Care Treatment Duration: Oct 03, 2020 Frequency: 3 times per week Estimated Hrs Per Day: .25 hour per day Rehab Potential: Fair Barriers to Learning: Patient's dementia, disorientation status Pt/Family Agrees to Plan: Yes Safety Risks/Education Teaching Recipient: Patient Teaching Methods: Discussion Response to Teaching: Verbalize Understanding, Reinforcement Needed Education Topics Provided: Safety within his room, communication of wants/needs Time Speech Therapy Time In: 13:30 Speech Therapy Time Out: 13:45 Total Billed Time: 15 Billed Treatment Time 1, SHI MERA BETHAN[address] ST Sep 29, 2020 14:54
[2020-09-29] MEDS ORDERED: BISACODYL 10 MG SUPP (DULCOLAX) PR PRN (15:15)
[2020-09-29] MEDS ORDERED: polyethylene glycoL POWDER 17 GM (MIRALAX) PACK PO NR (15:15)
[2020-09-29] MEDS ORDERED: SENNA W/DOCUSATE (SENOKOT S) TABLET PO NR (15:15)
[2020-09-29] MEDS ORDERED: DOCUSATE SODIUM 100 MG (COLACE) CAP PO NR (15:15)
[2020-09-29] MEDS: HALOPERIDOL 5 MG/ML (HALDOL) VIAL IM PRN (17:05)
[2020-09-29] MEDS: AMITRIPTYLINE 50 MG (ELAVIL) TAB PO SCH (20:31)
[2020-09-29] MEDS: DOCUSATE SODIUM 100 MG (COLACE) CAP PO SCH (20:31)
[2020-09-29] MEDS: polyethylene glycoL POWDER 17 GM (MIRALAX) PACK PO SCH (20:32)
[2020-09-29] MEDS: SENNA W/DOCUSATE (SENOKOT S) TABLET PO SCH (20:32)
--- NOTE | 2020-09-29 23:30 | NUR ---
This nurse updated on patients low urine output. Patient has only urinated around 100ml since 1800. Bladder scan done and showed 35ml. Patient has been sleeping and has not drank much. Order received to continue to monitor.
[2020-09-30] MEDS: LACTATED RINGERS 1,000 ML IV SCH (00:37)
[2020-09-30] MEDS: DexMEDEtomidine PRE MIX 100 ML IV SCH ×2 (03:05→07:03)
[2020-09-30 04:26] VITALS: BP 132/85
[2020-09-30] MEDS: inSUlin ASPART (NovoLOG) 1 UNIT/0.01 ML (CHARGE PER UNIT) SC SCH ×2 (06:22→10:51)
[2020-09-30] MEDS: HALOPERIDOL 5 MG/ML (HALDOL) VIAL IM PRN ×2 (07:37→12:11)
[2020-09-30 08:00] LABS: POTASSIUM 4.1 MMOL/L (3.6-5.0)
[2020-09-30] MEDS ORDERED: CATHETER FLUSH 10 ML SYR IV PRN (08:00)
[2020-09-30 08:01] LABS: CALCIUM 8.7 MG/DL (8.5-10.1)
[2020-09-30 08:06] LABS: CREATININE SERUM 2.24 MG/DL (0.60-1.30)
[2020-09-30] MEDS ORDERED: REGADENOSON 0.4 MG/5 ML SYR (LEXISCAN) IV ONE (08:23)
[2020-09-30 08:31] VITALS: BP 194/115
--- NOTE | 2020-09-30 08:44 | Cardiology Progress Note ---
Subjective Date Seen by Provider: Sep 30, 2020 Time Seen by Provider: 08:48 Subjective/Events-last exam Patient is down for stress test, denies any chest pain. C/o dyspnea. Appears very anxious this morning. Review of Systems General: No Chills, No Night Sweats; Fatigue, Malaise; No Appetite, No Other HEENT: No Head Aches, No Visual Changes, No Eye Pain, No Ear Pain, No Dysphasia, No Sinus Congestion, No Post Nasal Drip, No Sore Throat, No Other Pulmonary: Dyspnea; No Cough, No Pleuritic Chest Pain, No Other Cardiovascular: No: Chest Pain, Palpitations, Orthopnea, Paroxysmal Noc. Dyspnea, Edema, Lt Headedness, Other Focused Exam Lactate Level 09/27/20 17:00: Lactic Acid Level 2.26*H 09/27/20 19:19: Lactic Acid Level 2.54*H 09/27/20 22:25: Lactic Acid Level 1.48 Objective-Cardiology Exam Last Set of Vital Signs Vital Signs 09/27/20 09/30/20 09/30/20 20:37 04:26 08:31 Temp 36.2 Pulse 86 Resp 20 B/P (MAP) 194/115 (141) Pulse Ox 94 O2 Delivery Room Air FiO2 21 Capillary Refill : Less Than 3 Seconds I&O Intake and Output 09/30/20 00:00 Intake Total 1450 ml Output Total 2050 ml Balance -600 ml Intake Oral 1450 ml Output Urine Total 2050 ml # Voids 13 General: Alert, Oriented X3, Cooperative HEENT: Atraumatic, PERRLA Lungs: Other (rhonchi RLL) Heart: Regular Rate, Normal S1, Normal S2 Abdomen: Normal Bowel Sounds, Soft, No Tenderness, No Hepatosplenomegaly Extremities: No Edema, Normal Pulses Skin: No Rashes, No Significant Lesion Neuro: Normal Speech, Cranial Nerves 3-12 NL Psych/Mental Status: Mood NL Results Lab Laboratory Tests 09/30/20 07:35 A/P-Cardiology Admission Diagnosis AMS Elevated troponin RML pneumonia Elevated BNP Assessment/Plan AMS, confusion, likely multifactorial. Defer to the primary team. Right middle lobe pneumonia,on IV antibiotics. Positive troponin,trending down; in a patient with chronic kidney disease. Patient denies any chest pain, having some dyspnea this morning. Stress test showed no significant ischemia or infarction on SPECT images Mildly elevated BNP, no evidence of congestive heart failure. 2D Echo results pending. Acute on chronic kidney injury,likely due to diabetes. Diabetes,defer to the primary team. Hypertension,stable. Dementia Patient was seen and evaluated with Jyothi, examination performed, management plan was discussed, agree with the current scribed note, I made few changes to t he note using Italic font Patient was seen at bedside sitting comfortably Discussed the management plan with Dr. Kong, stress test did not show any acute ischemia Conservative management is recommended Okay for discharge once patient pneumonia and sepsis improved Clinical Quality Measures DVT/VTE Risk/Contraindication: Risk Factor Score Per Nursin RFS Level Per Nursing on Admit: 4+=Very High JYOTHI AYON Sep 30, 2020 8:44 am MERLENE CHRISTIAN MD Sep 30, 2020 11:47 am
[2020-09-30] MEDS ORDERED: lisINopril 10 MG (PRINIVIL) TABLET PO SCH (09:00)
--- NOTE | 2020-09-30 09:00 | NUR ---
THIS NURSE UPDATED DR CABA PT WAS VERY CONFUSED, AGITATED, AND AGGRESSIVE LAST NIGHT. PT HAS BEEN ON A PRECEDEX DRIP. THIS NURSE HAS HAD THE DRIP OFF FOR THE STRESS TEST. PT CAN ANSWER QUESTIONS APPROPRIATELY BUT STILL CONFUSED. IN THE AFTERNOON THE PT BECOMES INCREASINGLY MORE CONFUSED AND AGITATED AND REQUIRES PRECEDEX. THIS NURSE ALSO NOTIFIED DR CABA PT MICHAEL HAS BEEN VERY CONFUSED. MICHAEL HAS CALLED MULTIPLE TIMES ASKING THE SAME QUESTIONS. DR CABA WILL TALK TO LOG SNAKER. NO NEW ORDERS AT THIS TIME. WILL CONTINUE TO MONITOR.
--- NOTE | 2020-09-30 09:41 | Physical Therapy Progress Note ---
Therapy Progress Note Patient unavailable this a.m. due to procedure/testing. Will attempt later today. ARNAV BEARDEN PT Sep 30, 2020 09:41
--- NOTE | 2020-09-30 09:49 | NUR ---
CM/SS attempted to visit patient. He was away due to testing. This sw will attempt to visit again later.
[2020-09-30] MEDS: risperiDONE 0.25 MG (RisperDAL) TAB PO SCH (10:21)
[2020-09-30] MEDS: FINASTERIDE (PROSCAR) 5 MG TAB PO SCH (10:21)
[2020-09-30] MEDS: PANTOPRAZOLE 40 MG (PROTONIX) TAB PO SCH (10:21)
[2020-09-30] MEDS: ENOXAPARIN 40 MG/0.4 ML (LOVENOX) SYR SC SCH (10:21)
[2020-09-30] MEDS: polyethylene glycoL POWDER 17 GM (MIRALAX) PACK PO SCH (10:22)
[2020-09-30] MEDS: DOCUSATE SODIUM 100 MG (COLACE) CAP PO SCH (10:22)
[2020-09-30] MEDS: CEFEPIME 1,000 MG/SWFI 10 ML IV PUSH IV SCH ×2 (10:22)
[2020-09-30] MEDS: SENNA W/DOCUSATE (SENOKOT S) TABLET PO SCH (10:23)
--- NOTE | 2020-09-30 10:31 | Cardiology Stress Test Report ---
Stress Test Report Date of Procedure/Referring: Date of Procedure: Sep 30, 2020 PCP Lesa Kong MD Admitting Physician Fox De Jesus DO Indications: Chest pain Baseline Heart Rate: 88 Baseline Blood Pressure: Blood Pressure Systolic: 194 Blood Pressure Diastolic: 115 Baseline Vitals Vital Signs Date Time Temp Pulse Resp B/P (MAP) Pulse Ox O2 Delivery O2 Flow Rate FiO2 09/27/20 16:30 37.7 102 21 161/94 (116) 99 Room Air 09/27/20 20:37 21 Baseline EKG: Baseline EKG: sinus rhythm, right BBB Summary After explaining the procedure to the patient, he signed a consent and then brought to the stress nuclear laboratory. Patient received 0.4 mg Lexiscan for stress test, ECG, heart rate and blood pressure were monitored continuously. Resting and stress dose of radio tracer were injected, imaging was acquired and reviewed in short axis, horizontal long axis and vertical long axis views. TID: 1.03 SSS: 4 SDS: 4 EF: 50 1. Patient tolerated Lexiscan well 2. Baseline right bundle branch block persisted during test 3. Mild decreased uptake at the basal to mid inferolateral wall with subtle reversibility, no significant ischemia or infarction on SPECT images 4. Normal left ventricular size, EF 50 percent MERLENE CHRISTIAN MD Sep 30, 2020 10:31
[2020-09-30] MEDS: RT-ALBUTEROL/IPRATROPIUM 3 ML (DUONEB) VIAL INH PRN (11:51)
[2020-09-30 12:00] VITALS: BP 193/102
[2020-09-30] MEDS ORDERED: CEFD300C3 PO (12:13)
--- NOTE | 2020-09-30 12:40 | NUR ---
THIS NURSE NOTIFIED HUNTER WITH MANUFACTURING STOREPERSON THE MICHAEL IS VERY CONCERNED ABOUT DISCHARGE. MICHAEL HAS BEEN UPDATED ON THE PLAN. THIS NURSE NOTIFIED HUNTER RODRIGUEZ SEEMED CONFUSED AND KEPT ASKING THE SAME QUESTIONS. MICHAEL WOULD LIKE HUNTER TO REACH OUT WHEN SHE KNOWS ANYTHING.
--- NOTE | 2020-09-30 14:05 | Physical Therapy Progress Note ---
Therapy Progress Note Patient is alert and oriented x [address] Kong and continues to be slightly agitated. Patient adamantly declined PT due to demanding to leave hospital. PT did not want to increase agitation and respects patient declining therapy. Will attempt in a.m. 1 ref ([id number]) ARNAV BEARDEN PT Sep 30, 2020 14:05
--- NOTE | 2020-09-30 14:11 | Occ Therapy Progress Note ---
Therapy Progress Note Pt highly agitated on this date, declined therapy services. OT will attempt again tomorrow due to not wanting to increase pt's agitation and respecting his decision to decline therapy. 1, refusal [id number] JAMAL LYONS OT Sep 30, 2020 14:11
[2020-09-30 14:44] VITALS: BP 193/102
--- NOTE | 2020-09-30 14:45 | NUR ---
1410-THIS NURSE NOTIFIED DR CABA PT HAS BEEN VERY AGITATED AND CONFUSED. THIS NURSE HAD TO RESTART THE PRECEDEX DRIP. DR CABA AT BEDSIDE TO ASSESS PT. PRECEDEX DRIP HELD. PT WAS ABLE TO ANSWER QUESTIONS APPROPRIATELY. DR CABA NOTIFIED THIS NURSE HE IS CAPABLE OF MAKING HIS OWN DECISIONS. DR CABA WOULD LIKE PT TO STAY TO MANAGE HIS HIGH BP. DR CABA EXPLAINED THE RISKS OF HIGH BP AND LEAVING AMA. PT STATED UNDERSTANDING AND HE WOULD STILL LIKE TO GO HOME. DR CABA STATED PT CAN LEAVE AMA. THIS NURSE WENT OVER THE RISKS OF LEAVING AMA. PT STATED UNDERSTANDING AND SIGNED THE PAPERWORK. DELMY THE PT DAUGHTER WAS CONTACTED FOR A RIDE. PT WAS TAKEN VIA WHEELCHAIR TO FRONT ENTRANCE WITH BELONGINGS AND HOME MEDICATIONS BY PCT.
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
== END 2020-09-30 14:45 | disposition left against medical advice (07) | DRG 871 ==
LOC: EDUNIT# 16:19 → ER 16:19 → CSD 17:57
PROVIDERS: ADMIT Family Medicine; ATTEND Internal Medicine
DX: A41.9 Sepsis, unspecified organism (principal); J18.9 Pneumonia, unspecified organism; I21.4 Non-ST elevation (NSTEMI) myocardial infarction; N17.9 Acute kidney failure, unspecified; C85.90 Non-Hodgkin lymphoma, unspecified, unspecified site; R65.20 Severe sepsis without septic shock; E11.22 Type 2 diabetes mellitus with diabetic chronic kidney disease; Z20.828 Contact with and (suspected) exposure to other viral communicable diseases; N18.30 Chronic kidney disease, stage 3 unspecified; E11.40 Type 2 diabetes mellitus with diabetic neuropathy, unspecified; I10 Essential (primary) hypertension; F03.90 Unspecified dementia, unspecified severity, without behavioral disturbance, psychotic disturbance, mood disturbance, and anxiety; F41.9 Anxiety disorder, unspecified; G47.9 Sleep disorder, unspecified; R32 Unspecified urinary incontinence; Z92.21 Personal history of antineoplastic chemotherapy; Z87.891 Personal history of nicotine dependence; Z79.4 Long term (current) use of insulin
CPT/HCPCS: 36415; 70450; 71045; 78452; 80048; 80053; 81000; 82962; 83605; 83880; 84484; 85007; 85025; 85027; 87040; 87635; 87804; 93005; 93017; 93306; 94640

== ENCOUNTER 2020-10-01 12:44 | Emergency (ER) | payer MEDICARE ==
[~2020-10-01] VITALS: Ht 182 cm; Wt 104.2 kg
[~2020-10-01 12:44] MED LIST changes: +CEFD300C3 PO
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
[2020-10-01 13:00] LABS: BASOPHILS % (AUTO) 0 % (0-10); EOSINOPHILS % (AUTO) 0 % (0-10); HEMATOCRIT 37 % (40-54); HEMOGLOBIN 11.8 g/dL (13.3-17.7); LYMPHOCYTES # (AUTO) 1.1 10^3/uL (1.0-4.0); LYMPHOCYTES % (AUTO) 12 % (12-44); MEAN CORPUSCULAR HEMOGLOBIN 31 pg (25-34); MEAN CORPUSCULAR HGB CONC 32 g/dL (32-36); MEAN CORPUSCULAR VOLUME 97 fL (80-99); MONOCYTES % (AUTO) 11 % (0-12); NEUTROPHILS # (AUTO) 6.8 10^3/uL (1.8-7.8); NEUTROPHILS % (AUTO) 76 % (42-75); PLATELET COUNT 280 10^3/uL (130-400)
[2020-10-01 13:02] LABS: BILIRUBIN,URINE NEGATIVE (NEGATIVE); CLARITY,URINE CLEAR; COLOR,URINE YELLOW; GLUCOSE, URINE (UA) 2+ (NEGATIVE); KETONES,URINE 2+ (NEGATIVE); LEUKOCYTE ESTERASE ,URINE NEGATIVE (NEGATIVE); NITRITE,URINE NEGATIVE (NEGATIVE); PH,URINE 7.5 (5-9); PROTEIN,URINE 3+ (NEGATIVE)
[2020-10-01 13:09] LABS: ALBUMIN 4.4 GM/DL (3.2-4.5); BACTERIA,URINE NEGATIVE /HPF; POTASSIUM 3.7 MMOL/L (3.6-5.0); RBC,URINE RARE /HPF; SQUAMOUS EPITHELIAL CELL,UR RARE /HPF
[2020-10-01 13:10] LABS: CALCIUM 9.4 MG/DL (8.5-10.1)
[2020-10-01 13:11] LABS: TOTAL PROTEIN 7.5 GM/DL (6.4-8.2)
[2020-10-01 13:13] LABS: BILIRUBIN,TOTAL 1.9 MG/DL (0.1-1.0)
[2020-10-01 13:15] LABS: CREATININE SERUM 2.39 MG/DL (0.60-1.30)
[2020-10-01] MEDS ORDERED: meTOprolol 5 MG/5 ML (LOPRESSOR) VIAL IV ONE (13:15)
--- NOTE | 2020-10-01 13:16 | Diagnostic Imaging Report ---
INDICATION: Cough, difficulty breathing, chest pain. COMPARISON: 09/27/2020. FINDINGS: Infiltrates in the right lung show mild progression. The left lung is clear. There is some elevation of the right diaphragm, unchanged, and this may reflect an element of subpulmonic pleural fluid. IMPRESSION: Mild increased right lung infiltrate. Elevation of the right diaphragmatic shadow, unchanged. Clear left chest. Dictated by: Dictated on workstation # [id number]
[2020-10-01] MEDS ORDERED: CEFEPIME INJECTION 2,000 MG in WATER (STERILE) FOR INJECTION 20 ML IV ONE (14:15)
[2020-10-01] MEDS ORDERED: cloNIDine 0.1 MG (CATAPRES) TAB PO ONE (14:15)
[2020-10-01] MEDS ORDERED: amLODIPine 5 MG (NORVASC) TAB PO ONE (15:15)
[2020-10-01 15:52] VITALS: BP 161/62
== END 2020-10-01 15:52 | disposition short-term general hospital (02) ==
LOC: EDUNIT# 12:44 → ER 12:45
DX: R41.82 Altered mental status, unspecified (principal); E11.22 Type 2 diabetes mellitus with diabetic chronic kidney disease; I12.9 Hypertensive chronic kidney disease with stage 1 through stage 4 chronic kidney disease, or unspecified chronic kidney disease; N18.4 Chronic kidney disease, stage 4 (severe); J18.1 Lobar pneumonia, unspecified organism; F41.9 Anxiety disorder, unspecified; Z79.4 Long term (current) use of insulin; Z80.1 Family history of malignant neoplasm of trachea, bronchus and lung; Z85.72 Personal history of non-Hodgkin lymphomas; Z77.22 Contact with and (suspected) exposure to environmental tobacco smoke (acute) (chronic)
CPT/HCPCS: 36415; 71045; 80053; 81000; 85025

== ENCOUNTER → 2020-10-17 | Outpatient (CLI) | payer MEDICARE ==
[2020-10-17 14:28] LABS: BASOPHILS # (AUTO) 0.1 10^3/uL (0.0-0.1); BASOPHILS % (AUTO) 1 % (0-10); EOSINOPHILS # (AUTO) 0.2 10^3/uL (0.0-0.3); EOSINOPHILS % (AUTO) 2 % (0-10); HEMATOCRIT 38 % (40-54); HEMOGLOBIN 12.4 g/dL (13.3-17.7); LYMPHOCYTES # (AUTO) 1.8 10^3/uL (1.0-4.0); LYMPHOCYTES % (AUTO) 19 % (12-44); MEAN CORPUSCULAR HEMOGLOBIN 32 pg (25-34); MEAN CORPUSCULAR HGB CONC 33 g/dL (32-36); MEAN CORPUSCULAR VOLUME 97 fL (80-99); MEAN PLATELET VOLUME 9.8 fL (9.0-12.2); MONOCYTES # (AUTO) 0.9 10^3/uL (0.0-1.0); MONOCYTES % (AUTO) 10 % (0-12); NEUTROPHILS # (AUTO) 6.3 10^3/uL (1.8-7.8); NEUTROPHILS % (AUTO) 68 % (42-75); PLATELET COUNT 293 10^3/uL (130-400); WHITE BLOOD COUNT 9.2 10^3/uL (4.3-11.0)
[2020-10-17 14:37] LABS: BILIRUBIN,URINE NEGATIVE (NEGATIVE); CLARITY,URINE CLEAR; COLOR,URINE YELLOW; GLUCOSE, URINE (UA) TRACE (NEGATIVE); KETONES,URINE NEGATIVE (NEGATIVE); LEUKOCYTE ESTERASE ,URINE NEGATIVE (NEGATIVE); NITRITE,URINE NEGATIVE (NEGATIVE); PROTEIN,URINE 3+ (NEGATIVE)
[2020-10-17 14:52] LABS: BACTERIA,URINE TRACE /HPF; HYALINE CASTS, URINE 0-2 /LPF; SQUAMOUS EPITHELIAL CELL,UR RARE /HPF
[2020-10-17 14:53] LABS: ALBUMIN 4.1 GM/DL (3.2-4.5); BILIRUBIN,TOTAL 1.1 MG/DL (0.1-1.0); CALCIUM 9.1 MG/DL (8.5-10.1); CREATININE SERUM 2.8 MG/DL (0.60-1.30); TOTAL PROTEIN 6.7 GM/DL (6.4-8.2)
--- NOTE | 2020-10-17 17:42 | Diagnostic Imaging Report ---
HISTORY: Pneumonia 2 weeks ago. Altered mental status. COMPARISON: 10/01/2020 TECHNIQUE: 2 views of the chest FINDINGS: There is mild hazy opacity in the right upper lobe and right lung base. This appears to be mildly improved compared to the prior exam. No pleural effusion or pneumothorax is seen. There is a stable catheter projecting over the SVC. IMPRESSION: 1. Hazy airspace opacities in the right lung appear mildly improved compared to the prior exam. Dictated by: Dictated on workstation # [id number]
== END ==
LOC: RAD 14:04
PROVIDERS: ATTEND Nurse Practitioner Family
DX: J18.9 Pneumonia, unspecified organism (principal); R41.0 Disorientation, unspecified
CPT/HCPCS: 36415; 71046; 80053; 81000; 85025; 86141

== ENCOUNTER 2020-11-27 13:23 | Outpatient (RCR) | payer MEDICARE | END 2021-02-25 | disposition home or self-care (01) | LOC: ONC 13:23 | PROVIDERS: ATTEND Internal Medicine Hematology & Oncology | DX: Z45.2 Encounter for adjustment and management of vascular access device (principal); C82.99 Follicular lymphoma, unspecified, extranodal and solid organ sites; D63.1 Anemia in chronic kidney disease; E11.22 Type 2 diabetes mellitus with diabetic chronic kidney disease; N18.30 Chronic kidney disease, stage 3 unspecified; I10 Essential (primary) hypertension; E78.5 Hyperlipidemia, unspecified | CPT/HCPCS: 96523 ==

== ENCOUNTER 2020-12-31 05:49 | Outpatient (RCR) | payer MEDICARE | END 2021-03-31 | LOC: PREOP 05:49 | PROVIDERS: ATTEND Surgery | DX: Z01.812 Encounter for preprocedural laboratory examination (principal); Z12.11 Encounter for screening for malignant neoplasm of colon; Z85.038 Personal history of other malignant neoplasm of large intestine ==

== ENCOUNTER 2021-10-16 10:09 | Emergency (ER) | payer MEDICARE ==
[~2021-10-16] VITALS: Ht 177.8 cm; Wt 102.0 kg
[2021-10-16 10:55] LABS: BASOPHILS % (AUTO) 1 % (0-10); EOSINOPHILS # (AUTO) 0.2 10^3/uL (0.0-0.3); EOSINOPHILS % (AUTO) 2 % (0-10); HEMATOCRIT 34 % (40-54); LYMPHOCYTES # (AUTO) 1.2 10^3/uL (1.0-4.0); LYMPHOCYTES % (AUTO) 15 % (12-44); MEAN CORPUSCULAR HEMOGLOBIN 31 pg (25-34); MEAN CORPUSCULAR HGB CONC 32 g/dL (32-36); MEAN CORPUSCULAR VOLUME 96 fL (80-99); MEAN PLATELET VOLUME 9.6 fL (9.0-12.2); MONOCYTES # (AUTO) 0.8 10^3/uL (0.0-1.0); MONOCYTES % (AUTO) 10 % (0-12); NEUTROPHILS # (AUTO) 5.8 10^3/uL (1.8-7.8); NEUTROPHILS % (AUTO) 72 % (42-75); PLATELET COUNT 253 10^3/uL (130-400); WHITE BLOOD COUNT 8.1 10^3/uL (4.3-11.0)
[2021-10-16 10:59] LABS: POTASSIUM 4.2 MMOL/L (3.6-5.0)
[2021-10-16 11:00] LABS: CALCIUM 8.9 MG/DL (8.5-10.1)
[2021-10-16 11:04] LABS: CREATININE SERUM 2.24 MG/DL (0.60-1.30)
--- NOTE | 2021-10-16 11:09 | ED General ---
General Chief Complaint: Cardiac/General Problems Stated Complaint: FLUID RETENTION Nursing Triage Note: PT BROUGHT IN BY [facility] FROM [facility] WITH COMPLAINT OF WORSENING EDEMA. [facility] NURSE STATES PT HAD ATLEAST 10LB WEIGHT GAIN OVER THE LAST MONTH. PT HAS BILATERAL EXTREMITY EDEMA AND PERIORBITAL EDEMA. Source of Information: Patient Exam Limitations: Other (poor historian) (PANCHO PACE STUDENT) History of Present Illness Date Seen by Provider: Oct 16, 2021 Time Seen by Provider: 10:30 Initial Comments This is a 75 YO male brought to ED by EMS for worsening edema and shortness of breath. EMS states pt lives at [facility] and has been having increased swelling in his extremities, abdomen, and face for the past month and increasing shortness of breath for the past 10 days. Has also gained 10 lbs over the past month. Denies any other symptoms, including recent illness, fever, chills, nausea, vomiting, chest pain, abdominal pain, and cough. Pt is poor historian and has difficulty remember his medical history, but prior records indicate history of DM, HTN, colon cancer, and lymphoma. Associated Systoms: No Chest Pain, No Cough, No Fever/Chills; Shortness of Air (PANCHO PACE STUDENT) Allergies and Home Medications Allergies Coded Allergies: No Known Drug Allergies (Verified , 10/26/07) Patient Home Medication List Home Medication List Reviewed: Yes (ADAN DUNAWAY MD) Alprazolam (Alprazolam) 0.5 Mg Tablet, 0.5 MG PO Q6H PRN for ANXIETY, (Reported) Entered as Reported by: MICK CERDA on 04/21/15 1544 Amitriptyline Hcl (Amitriptyline Hcl) 50 Mg Tablet, 50 MG PO HS, (Reported) Entered as Reported by: HINA TANG on 04/30/13 0804 Atorvastatin Calcium (Atorvastatin Calcium) 10 Mg Tablet, 10 MG PO HS, (Reported) Entered as Reported by: MICK CERDA on 04/21/15 1544 Cholecalciferol (Vitamin D3) (Vitamin D3) 1,000 Unit Tablet, 1,000 UNIT PO HS, (Reported) Entered as Reported by: MICK CERDA on 04/21/15 1556 Diltiazem Hcl (Diltiazem Ir 90 Mg Tab) 90 Mg Tablet, 180 MG PO DAILY, (Reported) Entered as Reported by: MICK CERDA on 04/21/15 154 Finasteride (Finasteride) 5 Mg Tablet, 5 MG PO HS, (Reported) Entered as Reported by: MICK CERDA on 04/21/15 154 Furosemide (Lasix) 20 Mg Tablet, 20 MG PO every other day Prescribed by: ADAN DUNAWAY on 10/16/21 1149 Gabapentin (Neurontin) 300 Mg Cap, 600 MG PO BID, (Reported) Entered as Reported by: HINA TANG on 04/30/13 0804 Glimepiride (Glimepiride) 4 Mg Tablet, 8 MG PO DAILY, (Reported) Entered as Reported by: BERNABE FINNEY on 10/04/14 1043 Hydrocodone Bit/Acetaminophen (Hydrocodon-Acetaminophn 10-325) 1 Each Tablet, 1 TAB PO Q6H PRN for PAIN, (Reported) Entered as Reported by: MICK CERDA on 04/21/15 154 Insulin Aspart (Novolog Pen) 100 Unit/1 Ml Insuln.pen, 11 UNITS SQ AC, (Reported) Entered as Reported by: BERNABE FINNEY on 10/04/14 1043 Insulin Glargine,Hum.rec.anlog (Lantus) 100 Unit/1 Ml Cartridge, 18 UNIT SQ HS, (Reported) Entered as Reported by: HINA TANG on 04/30/13 0804 Lisinopril (Lisinopril) 10 Mg Tablet, 10 MG PO DAILY, (Reported) Entered as Reported by: BERNABE FINNEY on 10/04/14 1043 Magnesium Oxide (Mag Ox 400) 400 Mg Tablet, 400 MG PO DAILY, (Reported) Entered as Reported by: HINA TANG on 04/30/13 0804 Omeprazole (Omeprazole) 20 Mg Capsule.dr, 20 MG PO BID, (Reported) Entered as Reported by: BERNABE FINNEY on 10/04/14 1043 Vitamin B Complex (Vitamin B Complex) 1 Cap Capsule, 1 CAP PO HS, (Reported) Entered as Reported by: MICK CERDA on 04/21/15 1556 Review of Systems Review of Systems Constitutional: No chills, No fever; weight gain EENTM: no symptoms reported Respiratory: short of breath Cardiovascular: No chest pain Gastrointestinal: No abdominal pain, No vomiting; other (abdominal distension) Genitourinary: no symptoms reported Musculoskeletal: no symptoms reported Skin: no symptoms reported Psychiatric/Neurological: No Symptoms Reported Hematologic/Lymphatic: No Symptoms Reported difficult to obtain, pt is poor historian (PANCHO PACE STUDENT) All Other Systems Reviewed Negative Unless Noted: Yes (Negative excepted noted.) (PANCHO PACE STUDENT) Past Kmzyjbb-Kundsz-Jnxvpa Hx Patient Social History Tobacco Use?: No Smoking Status: Former Smoker Use of E-Cig and/or Vaping dev: No Substance use?: No Alcohol Use?: No Pt feels they are or have been: No (PANCHO PACE STUDENT) Immunizations Up To Date Tetanus Booster (TDap): Unknown PED Vaccines UTD: No (PANCHO PACE) Seasonal Allergies Seasonal Allergies: No (PANCHO PACE) Past Medical History Surgeries: Yes (PORT PLACEMENT, LYMPH NODE BIOPSY, ) Appendectomy Respiratory: No Cardiac: Yes Hypertension Neurological: No Reproductive Disorders: No Gastrointestinal: No Musculoskeletal: No Endocrine: Yes Diabetes, Insulin dep Cancer: Yes Lymphoma Did You Recieve Any Treatments: Yes What Type of Treatment Did You: Chemotherapy Psychosocial: Yes Sleep Difficulties, Anxiety Integumentary: No Blood Disorders: No (PANCHO PACE STUDENT) Family Medical History Alcoholism G8 BROTHER Cataracts 19 FATHER 19 MOTHER Completed stroke 19 MOTHER FH: lung cancer 19 FATHER No Family History of: AIDS Abdominal aortic aneurysm Nicolás's disease Alzheimer's disease Aphasia Arthritis Asthma Cancer of mouth Cardiovascular disease Colon cancer Congenital disease Congenital heart disease Coronary thrombosis Cystic fibrosis Deafness or hearing loss Dementia Diabetes mellitus Drug abuse Dysphasia Fibrocystic disease of breast Gastroenteritis Glaucoma Headache disorder Hypercholesterolemia Hypertension Infertility Kidney disease Myocardial infarction Neoplasm Not obtainable due to adoption Osteoporosis Parkinson's disease Prostate cancer Psychosocial problem Respiratory disorder Seizure disorder Severe allergy Thyroid disease Tuberculosis Visual disorder Physical Exam Vital Signs Vital Signs - First Documented 10/16/21 10:11 Temp 36.3 Pulse 93 Resp 19 B/P (MAP) 174/81 (112) Pulse Ox 98 O2 Delivery Room Air (ADAN DUNAWAY MD) Vital Signs Capillary Refill : Less Than 3 Seconds (PANCHO PACE MED STUDENT) Height, Weight, BMI Height: 5'11.00" Weight: 224lbs. 0oz. 101.501252lj; 32.00 BMI Method:Stated General Appearance: No Apparent Distress, WD/WN Eyes: Bilateral Eye Normal Inspection, Bilateral Eye EOMI, Bilateral Eye Other (periorbital edema) HEENT: No Scleral Icterus (L), No Scleral Icterus (R) Neck: Normal Inspection, Supple Respiratory: Other (increased work of breathing, crackles at the bases on auscultation) Cardiovascular: Regular Rate, Rhythm, Other (BLE and BUE pitting edema) Gastrointestinal: Non Tender, Soft, Other (distended) Back: No CVA Tenderness, No Vertebral Tenderness Extremity: Non Tender, No Calf Tenderness, Pedal Edema Neurologic/Psychiatric: Alert, Normal Mood/Affect Skin: Normal Color, Warm/Dry (PANCHO PACE MED STUDENT) Progress/Results/Core Measures Suspected Sepsis SIRS Temperature: Pulse: 93 Respiratory Rate: 19 Laboratory Tests 10/16/21 10:23: White Blood Count 8.1 Blood Pressure 174 /81 Mean: 112 Laboratory Tests 10/16/21 10:23: Creatinine 2.24H, Platelet Count 253 (PANCHO PACE STUDENT) Results/Orders Lab Results Laboratory Tests Test 10/16/21 10:23 Range/Units White Blood Count 8.1 4.3-11.0 10^3/uL Red Blood Count 3.58 L 4.30-5.52 10^6/uL Hemoglobin 11.0 L 13.3-17.7 g/dL Hematocrit 34 L 40-54 % Mean Corpuscular Volume 96 80-99 fL Mean Corpuscular Hemoglobin 31 25-34 pg Mean Corpuscular Hemoglobin Concent 32 32-36 g/dL Red Cell Distribution Width 14.3 10.0-14.5 % Platelet Count 253 130-400 10^3/uL Mean Platelet Volume 9.6 9.0-12.2 fL Immature Granulocyte % (Auto) 1 % Neutrophils (%) (Auto) 72 42-75 % Lymphocytes (%) (Auto) 15 12-44 % Monocytes (%) (Auto) 10 0-12 % Eosinophils (%) (Auto) 2 0-10 % Basophils (%) (Auto) 1 0-10 % Neutrophils # (Auto) 5.8 1.8-7.8 10^3/uL Lymphocytes # (Auto) 1.2 1.0-4.0 10^3/uL Monocytes # (Auto) 0.8 0.0-1.0 10^3/uL Eosinophils # (Auto) 0.2 0.0-0.3 10^3/uL Basophils # (Auto) 0.0 0.0-0.1 10^3/uL Immature Granulocyte # (Auto) 0.1 0.0-0.1 10^3/uL Sodium Level 138 135-145 MMOL/L Potassium Level 4.2 3.6-5.0 MMOL/L Chloride Level 101 98-107 MMOL/L Carbon Dioxide Level 24 21-32 MMOL/L Anion Gap 13 5-14 MMOL/L Blood Urea Nitrogen 18 7-18 MG/DL Creatinine 2.24 H 0.60-1.30 MG/DL Estimat Glomerular Filtration Rate 29 BUN/Creatinine Ratio 8 Glucose Level 154 H 70-105 MG/DL Calcium Level 8.9 8.5-10.1 MG/DL B-Type Natriuretic Peptide 92.9 <100.0 PG/ML (ADAN DUNAWAY MD) My Orders Orders - ADAN DUNAWAY MD Ed Iv/Invasive Line Start (10/16/21 10:50) Cbc With Automated Diff (10/16/21 10:50) Basic Metabolic Panel (10/16/21 10:50) Ekg Tracing (10/16/21 10:50) Bnp Elbert (10/16/21 10:50) Chest 1 View, Ap/Pa Only (10/16/21 10:51) Furosemide Tablet (Lasix Tablet) (10/16/21 11:45) (ADAN DUNAWAY MD) Vital Signs/I&O 10/16/21 10/16/21 10:11 12:40 Temp 36.3 Pulse 93 76 Resp 19 17 B/P (MAP) 174/81 (112) 177/99 Pulse Ox 98 97 O2 Delivery Room Air Room Air (ADAN DUNAWAY MD) Vital Signs/I&O Capillary Refill : Less Than 3 Seconds (PANCHO PACE MED STUDENT) Blood Pressure Mean: 112 Progress Note : Time: 11:46 Progress Note Case discussed with Dr. De Jesus the patient's primary care provider. He instructs that the patient restart his Lasix 20 mg every other day. Patient will be given a first dose here in the emergency department prior to discharge. Dr. De Jesus indicated to me that he would follow-up with the patient at the senior living on Tuesday of next week. I communicated all of the findings from laboratory evaluation here in the emergency department to Dr. Hylton. He is comfortable with the restart of Lasix. He will discuss further diuresis with the patient's digital marketer, Dr. Alison Gregory prior to seeing him next week. I have talked to the patient about all of his laboratory findings, we have reviewed the plan of care, he is agreeable to restarting his Lasix. All questions are sought and answered. Patient is stable for discharge. (ADAN DUNAWAY MD) Diagnostic Imaging Comments CXR IMPRESSION: 1: There is airspace opacification involving the right lung base and blunting of the right costophrenic angle. This may represent lung infiltrate or pleural effusion. Given that patient had similar appearance on the prior study, this may represent a chronic finding. Chest x-ray, PA and lateral views, with good respiratory effort may help better evaluate. 2: There is cardiomegaly with no significant pulmonary vascular congestion. (PANCHO PACE MED STUDENT) Departure Impression Primary Impression: Anasarca associated with disorder of kidney Disposition: 01 HOME, SELF-CARE Condition: Stable Departure-Patient Inst. Decision time for Depature: 11:47 (ADAN DUNAWAY MD) Referrals: OSKAR DE JESUS DO (PCP/Family) Primary Care Physician Patient Instructions: Swelling Add. Discharge Instructions: We are restarting her Lasix 20 mg every other day. You have been given a dose here in the emergency department today. Your next dose will be on Tuesday. Please come back to the emergency room for reevaluation if you develop any shortness of breath, chest pain, fever or any other emergent concerning symptoms. Dr. Hylton stated that he would see you in the senior living on Tuesday of next week. Scripts Furosemide (Lasix) 20 Mg Tablet 20 MG PO every other day, #30 TAB 20mg every other day Prov: ADAN DUNAWAY MD 10/16/21 Copy Copies To 1: OSKAR DE JESUS CHRISTINE MED STUDENT Oct 16, 2021 11:09 ADAN DUNAWAY MD Oct 16, 2021 11:49
--- NOTE | 2021-10-16 11:24 | Diagnostic Imaging Report ---
CLINICAL INDICATION: Patient with worsening edema. Patient's nurse states patient had temporary weight gain over the last month. Patient has bilateral extremity edema and periorbital edema. EXAM: Portable chest x-ray upright view. COMPARISONS: Chest x-ray dated 10/01/2020. FINDINGS: There is stable mild cardiomegaly. There is no significant pulmonary vascular congestion. There is a small area of airspace opacity involving the right lung base. This may represent lung infiltrate or chronic lung changes. There is slight blunting of the right costophrenic angle region. Unknown if this is related to lung disease or pleural effusion. Patient had similar appearance on the prior study. There is no pneumothorax. The remainder of the lungs are clear. Again seen electrodes overlying the left upper chest and distally overlying the superior vena cava region. There are hypertrophic spurs involving the thoracic spine. IMPRESSION: 1: There is airspace opacification involving the right lung base and blunting of the right costophrenic angle. This may represent lung infiltrate or pleural effusion. Given that patient had similar appearance on the prior study, this may represent a chronic finding. Chest x-ray, PA and lateral views, with good respiratory effort may help better evaluate. 2: There is cardiomegaly with no significant pulmonary vascular congestion. Dictated by: Dictated on workstation # [id number]
[2021-10-16] MEDS ORDERED: FUROSEMIDE 20 MG (LASIX) TAB PO ONE (11:45)
[2021-10-16] MEDS ORDERED: FURO-125 PO (11:49)
[2021-10-16 12:40] VITALS: BP 177/99
== END 2021-10-16 12:40 | disposition home or self-care (01) ==
LOC: EDUNIT# 10:09 → ER 10:10
DX: N04.9 Nephrotic syndrome with unspecified morphologic changes (principal); I10 Essential (primary) hypertension; E11.9 Type 2 diabetes mellitus without complications; F41.9 Anxiety disorder, unspecified; Z87.891 Personal history of nicotine dependence; Z79.4 Long term (current) use of insulin; Z79.899 Other long term (current) drug therapy
CPT/HCPCS: 36415; 71045; 80048; 83880; 85025

== ENCOUNTER 2021-10-20 14:46 | Emergency (ER) | payer MEDICARE ==
[~2021-10-20] VITALS: Ht 177.8 cm; Wt 99.7 kg
[~2021-10-20 14:46] MED LIST changes: +FURO-125 PO
--- NOTE | 2021-10-20 15:09 | ED General ---
General Chief Complaint: General Problems/Pain Stated Complaint: AMS Nursing Triage Note: PT BROUGHT IN BY [facility] FROM [facility] WITH COMPLAINT OF CONFUSION. ON ARRIVAL, PT DOES NOT KNOW WHY HE WAS SENT TO ER. NO COMPLAINTS OR PAIN. Source of Information: Patient Exam Limitations: No Limitations History of Present Illness Date Seen by Provider: Oct 20, 2021 Time Seen by Provider: 14:52 Initial Comments Patient sent here by [facility] with chief complaint that he was off the unit wandering around stating that he was going to work and was confused and not know where he was or what time of day it was. Patient is known to have dementia but does not have wandering behaviors. When the patient arrives by EMS he is not having any complaints. 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 This provider spoke to him about where he worked and what he did. He states that prior to coming to the ER he was standing by the door and somebody came over and talked to him and asked him what he was doing. He then struck up a conversation with them and ended up talking about his job but denies being confused. He denies fever chills, nausea, vomiting, diarrhea, constipation, pain, shortness of air. He states that his swelling in his hands and legs is little better than yesterday so he is not worried about it today. Discussed the case with his daughter, point of contact and she agrees that he is back to baseline and this is likely due to his Alzheimer's. [facility] staff called report and stated that he had wandered off of his unit and into another unit. When they asked what he was doing he informed him that he was going to work. Allergies and Home Medications Allergies Coded Allergies: No Known Drug Allergies (Verified , 10/26/07) Patient Home Medication List Home Medication List Reviewed: Yes Alprazolam (Alprazolam) 0.5 Mg Tablet, 0.5 MG PO Q6H PRN for ANXIETY, (Reported) Entered as Reported by: MICK CERDA on 04/21/15 1544 Amitriptyline Hcl (Amitriptyline Hcl) 50 Mg Tablet, 50 MG PO HS, (Reported) Entered as Reported by: HINA TANG on 04/30/13 0804 Atorvastatin Calcium (Atorvastatin Calcium) 10 Mg Tablet, 10 MG PO HS, (Reported) Entered as Reported by: MICK CERDA on 04/21/15 154 Cholecalciferol (Vitamin D3) (Vitamin D3) 1,000 Unit Tablet, 1,000 UNIT PO HS, (Reported) Entered as Reported by: MICK CERDA on 04/21/15 1556 Diltiazem Hcl (Diltiazem Ir 90 Mg Tab) 90 Mg Tablet, 180 MG PO DAILY, (Reported) Entered as Reported by: MICK CERDA on 04/21/15 154 Finasteride (Finasteride) 5 Mg Tablet, 5 MG PO HS, (Reported) Entered as Reported by: MICK CERDA on 04/21/15 154 Furosemide (Lasix) 20 Mg Tablet, 20 MG PO every other day Prescribed by: ADAN DUNAWAY on 10/16/21 1149 Gabapentin (Neurontin) 300 Mg Cap, 600 MG PO BID, (Reported) Entered as Reported by: HINA TANG on 04/30/13 0804 Glimepiride (Glimepiride) 4 Mg Tablet, 8 MG PO DAILY, (Reported) Entered as Reported by: BERNABE FINNEY on 10/04/14 1043 Hydrocodone Bit/Acetaminophen (Hydrocodon-Acetaminophn 10-325) 1 Each Tablet, 1 TAB PO Q6H PRN for PAIN, (Reported) Entered as Reported by: MICK CERDA on 04/21/15 154 Insulin Aspart (Novolog Pen) 100 Unit/1 Ml Insuln.pen, 11 UNITS SQ AC, (Reported) Entered as Reported by: BERNABE FINNEY on 10/04/14 1043 Insulin Glargine,Hum.rec.anlog (Lantus) 100 Unit/1 Ml Cartridge, 18 UNIT SQ HS, (Reported) Entered as Reported by: HINA TANG on 04/30/13 0804 Lisinopril (Lisinopril) 10 Mg Tablet, 10 MG PO DAILY, (Reported) Entered as Reported by: BERNABE FINNEY on 10/04/14 1043 Magnesium Oxide (Mag Ox 400) 400 Mg Tablet, 400 MG PO DAILY, (Reported) Entered as Reported by: HINA TANG on 04/30/13 0804 Omeprazole (Omeprazole) 20 Mg Capsule.dr, 20 MG PO BID, (Reported) Entered as Reported by: BERNABE FINNEY on 10/04/14 1043 Vitamin B Complex (Vitamin B Complex) 1 Cap Capsule, 1 CAP PO HS, (Reported) Entered as Reported by: MICK CERDA on 04/21/15 1556 Review of Systems Review of Systems Constitutional: No chills, No diaphoresis EENTM: No ear discharge, No ear pain Respiratory: No cough, No short of breath Cardiovascular: No chest pain, No palpitations Gastrointestinal: No abdominal pain, No nausea, No vomiting Genitourinary: No discharge, No dysuria Musculoskeletal: No back pain, No joint pain All Other Systems Reviewed Negative Unless Noted: Yes Past Rlexhlk-Kozqzh-Cktgsg Hx Patient Social History Tobacco Use?: No Use of E-Cig and/or Vaping dev: No Substance use?: No Alcohol Use?: No Pt feels they are or have been: No Immunizations Up To Date Tetanus Booster (TDap): Unknown PED Vaccines UTD: No Influenza Vaccine Up-to-Date: Yes; Up-to-Date First/Initial COVID19 Vaccinat: FEBRUARY 2021 Second COVID19 Vaccination Bereket: MARCH 2021 COVID19 Vaccine Fire Alarm Mechanic: MODERNA Seasonal Allergies Seasonal Allergies: No Past Medical History Surgeries: Yes (PORT PLACEMENT, LYMPH NODE BIOPSY, ) Appendectomy Respiratory: No Cardiac: Yes Hypertension Neurological: No Reproductive Disorders: No Gastrointestinal: No Musculoskeletal: No Endocrine: Yes Diabetes, Insulin dep Cancer: Yes Lymphoma Did You Recieve Any Treatments: Yes What Type of Treatment Did You: Chemotherapy Psychosocial: Yes Sleep Difficulties, Anxiety Integumentary: No Blood Disorders: No Family Medical History Alcoholism G8 BROTHER Cataracts 19 FATHER 19 MOTHER Completed stroke 19 MOTHER FH: lung cancer 19 FATHER No Family History of: AIDS Abdominal aortic aneurysm Nicolás's disease Alzheimer's disease Aphasia Arthritis Asthma Cancer of mouth Cardiovascular disease Colon cancer Congenital disease Congenital heart disease Coronary thrombosis Cystic fibrosis Deafness or hearing loss Dementia Diabetes mellitus Drug abuse Dysphasia Fibrocystic disease of breast Gastroenteritis Glaucoma Headache disorder Hypercholesterolemia Hypertension Infertility Kidney disease Myocardial infarction Neoplasm Not obtainable due to adoption Osteoporosis Parkinson's disease Prostate cancer Psychosocial problem Respiratory disorder Seizure disorder Severe allergy Thyroid disease Tuberculosis Visual disorder Physical Exam Vital Signs Vital Signs - First Documented 10/20/21 14:46 Pulse 81 Resp 16 B/P (MAP) 129/74 (92) Pulse Ox 97 O2 Delivery Room Air Capillary Refill : Less Than 3 Seconds Height, Weight, BMI Height: 5'11.00" Weight: 224lbs. 0oz. 101.486995uy; 31.00 BMI Method:Stated General Appearance: No Apparent Distress, WD/WN Eyes: Bilateral Eye Normal Inspection, Bilateral Eye PERRL, Bilateral Eye EOMI HEENT: PERRL/EOMI, TMs Normal, Normal ENT Inspection, Pharynx Normal, Moist Mucous Membranes Neck: Full Range of Motion, Normal Inspection Respiratory: Lungs Clear, Normal Breath Sounds, No Accessory Muscle Use, No Re spiratory Distress Cardiovascular: Regular Rate, Rhythm, No Edema, Normal Peripheral Pulses Gastrointestinal: Normal Bowel Sounds, Non Tender, Soft Extremity: Normal Capillary Refill, Other (Bipedal edema 1+ pitting) Neurologic/Psychiatric: Alert, Oriented x3, No Motor/Sensory Deficits Skin: Normal Color, Warm/Dry Progress/Results/Core Measures Suspected Sepsis SIRS Temperature: Pulse: 81 Respiratory Rate: 16 Blood Pressure 129 /74 Mean: 92 Results/Orders Vital Signs/I&O 10/20/21 10/20/21 14:46 15:51 Pulse 81 80 Resp 16 16 B/P (MAP) 129/74 (92) 138/81 Pulse Ox 97 97 O2 Delivery Room Air Room Air Capillary Refill : Less Than 3 Seconds Blood Pressure Mean: 92 Progress Note : Time: 15:09 Progress Note Patient is alert and oriented x4 and we did offer to do some labs, chest x-ray work-up for his swelling or possible infection that might explain his episode of delirium. Patient has aseptic vital signs and clear sounding lungs. Staff concerns of hypertension was not reflected in the patient's vital signs. He had an entry blood pressure of 126/74. Discharge blood pressure was 138/81. Patient has declined any further work-up. We will provide him with a drink and let him go home. Discussed the case with the daughter over the phone who is in agreement with the plan. Discussed the case with the son who came into the ER and he is in agreement with the plan. He feels the patient is back at baseline. A second time when the son was present we offered to do some work-up, imaging or labs and the patient declined stating that he feels fine and does not see any need for anything. We did get him something to drink and he had no material deterioration during his ER stay. Departure Impression Primary Impression: Dementia Qualified Codes: F03.90 - Unspecified dementia without behavioral disturbance Disposition: 01 HOME, SELF-CARE Condition: Stable Departure-Patient Inst. Decision time for Depature: 15:11 Referrals: OSKAR HANSEN DO (PCP/Family) Primary Care Physician Patient Instructions: Dementia (DC) Add. Discharge Instructions: Follow-up with PCP as necessary. All discharge instructions reviewed with patient and/or family. Voiced understanding. MARTY CARRENO Oct 20, 2021 15:09
[2021-10-20 15:51] VITALS: BP 138/81
== END 2021-10-20 15:51 | disposition home or self-care (01) ==
LOC: ER 14:46 → EDUNIT# 14:46 → ER 15:51
DX: F03.90 Unspecified dementia, unspecified severity, without behavioral disturbance, psychotic disturbance, mood disturbance, and anxiety (principal); I10 Essential (primary) hypertension; E11.9 Type 2 diabetes mellitus without complications; F41.9 Anxiety disorder, unspecified; Z79.4 Long term (current) use of insulin; Z79.899 Other long term (current) drug therapy
CPT/HCPCS: 99283